=== PATIENT | female | born 1940 | race Caucasian/White ===

== ENCOUNTER → 2017-07-26 | Outpatient (CLI) | payer MEDICARE, BC ==
--- NOTE | 2017-07-29 07:31 | MM ---
Reason for exam: screening (asymptomatic). Last mammogram was performed 1 year and 4 months ago. History: Patient is postmenopausal. Physical Findings: A clinical breast exam by your physician is recommended on an annual basis and results should be correlated with mammographic findings. MG 3D Screening Mammo W/Cad Bilateral CC and MLO view(s) were taken. Prior study comparison: March 19, 2016, bilateral MG 3d screening mammo w/cad. February 16, 2015, bilateral MG screening mammo w CAD. The breast tissue is almost entirely fat. There is chronic nodularity in the right breast. Asymmetric breast tissue in the right breast. No significant changes when compared with prior studies. ASSESSMENT: Benign, BI-RAD 2 RECOMMENDATION: Routine screening mammogram of both breasts in 1 year.
== END | disposition home or self-care (01) ==
LOC: RADMAMWWP 13:18
PROVIDERS: ATTEND Internal Medicine
DX: Z12.31 Encounter for screening mammogram for malignant neoplasm of breast (principal)
CPT/HCPCS: 77063; G0202

== ENCOUNTER 2018-01-03 07:18 | Inpatient (IN) | payer MEDICARE, BC ==
[2018-01-03 07:57] LABS: Glucose,Whole Blood 124 mg/dL (75-99)
[2018-01-03] MEDS ORDERED: METOCLOPRAMIDE 5 MG/ML 2 ML VIAL IVP STA (08:00)
[2018-01-03] MEDS ORDERED: SODIUM CHLORIDE 0.9% 1,000 ML IV STA (08:00)
--- NOTE | 2018-01-03 08:05 | ED ---
General Adult HPI - General Chief complaint: Headache Stated complaint: headache Time Seen by Provider: 01/03/18 07:50 Source: patient, family, RN notes reviewed Mode of arrival: ambulatory Limitations: no limitations - History of Present Illness Initial comments: Patient is a pleasant 77-year-old female presenting to the emergency Department with headache. Patient occasionally gets headaches. Patient was once seen in the hospital for headache. Patient had a headache yesterday morning. When her son arrived to visit she seemed to have some slurred speech that quickly resolved after she woke up. There is also questionable left facial droop that also seemed to quickly resolved. Headache got better. Patient did take 2 aspirin last night. Headache has returned this morning. Son spoke with her on the phone again with questionable mild slurred speech again. That has resolved again. Patient complains only of mild headache at this time. Patient denies ever having any weakness or confusion. - Related Data Home Medications Medication Instructions Recorded Confirmed Aspirin 81 mg PO DAILY 10/28/14 01/03/18 Atenolol [Tenormin] 25 mg PO BID 10/28/14 01/03/18 Carbidopa/Levodopa 1 tab PO TID 10/28/14 01/03/18 [Carbidopa-Levodopa 25-100 Tab] Magnesium. 2 tab PO DAILY 10/28/14 01/03/18 Losartan Potassium 100 mg PO DAILY 01/03/18 01/03/18 Pravastatin Sodium [Pravachol] 20 mg PO Q48H 01/03/18 01/03/18 Allergies Allergy/AdvReac Type Severity Reaction Status Date / Time No Known Allergies Allergy Unverified 01/03/18 08:40 Review of Systems ROS Statement: Those systems with pertinent positive or pertinent negative responses have been documented in the HPI. ROS Other: All systems not noted in ROS Statement are negative. Constitutional: Denies: fever Eyes: Denies: eye pain ENT: Denies: ear pain Respiratory: Denies: cough Cardiovascular: Denies: chest pain Endocrine: Denies: fatigue Gastrointestinal: Denies: abdominal pain Genitourinary: Denies: dysuria Musculoskeletal: Denies: back pain Skin: Denies: rash Neurological: Reports: headache Past Medical History Past Medical History: Atrial Fibrillation, Hypertension Additional Past Medical History / Comment(s): parkinsons History of Any Multi-Drug Resistant Organisms: None Reported Past Surgical History: Cholecystectomy, Hysterectomy, Tubal Ligation Additional Past Surgical History / Comment(s): cataract surgery bilateral Past Anesthesia/Blood Transfusion Reactions: No Reported Reaction Past Psychological History: No Psychological Hx Reported Smoking Status: Never smoker Past Alcohol Use History: Rare Past Drug Use History: None Reported - Past Family History Mother Family Medical History: Cancer Additional Family Medical History / Comment(s): Lung cancer Father Additional Family Medical History / Comment(s): arthritis General Exam Limitations: no limitations General appearance: alert, in no apparent distress Head exam: Present: atraumatic Eye exam: Present: normal appearance, PERRL, EOMI. Absent: nystagmus ENT exam: Present: normal oropharynx Neck exam: Present: normal inspection Respiratory exam: Present: normal lung sounds bilaterally Cardiovascular Exam: Present: regular rate, normal rhythm GI/Abdominal exam: Present: soft. Absent: tenderness Extremities exam: Present: normal inspection Neurological exam: Present: alert, oriented X3, CN II-XII intact. Absent: motor sensory deficit Expanded Patient oriented to: Present: person, place, time Speech: Present: fluid speech Cranial nerves: EOM's Intact: Normal, Facial Sensation: Normal Sensory exam: Upper Extremity Light Touch: Normal, Lower Extremity Light Touch: Normal Motor strength exam: RUE: 5, LUE: 5, RLE: 5, LLE: 5 Eye Response: (4) open spontaneously Motor Response: (6) obeys commands Verbal Response: (5) oriented Psychiatric exam: Present: normal affect, normal mood Skin exam: Present: normal color Course Vital Signs 01/03/18 01/03/18 01/03/18 07:22 09:10 10:09 Temperature 97.3 F L Pulse Rate 77 69 54 L Respiratory 16 18 18 Rate Blood Pressure 172/78 152/72 145/65 O2 Sat by Pulse 100 98 98 Oximetry EKG Findings - EKG Comments: EKG Findings:: Normal sinus rhythm 70. NE 186. QRS 92. QT 412. QTC 444. Left axis. Normal QRS. No acute ST change. Medical Decision Making - Medical Decision Making Patient reevaluated and resting comfortably in bed. Patient symptom free at this time. Patient and family are updated on results and plan. Case was discussed with Dr. Gregg, who will admit his patient. Further evaluation will be done for possible TIA. - Lab Data Result diagrams: 01/03/18 08:00 01/03/18 08:00 Lab Results 01/03/18 01/03/18 01/03/18 Range/Units 07:53 08:00 08:00 WBC 9.6 (3.8-10.6) k/uL RBC 4.09 (3.80-5.40) m/uL Hgb 12.6 (11.4-16.0) gm/dL Hct 38.5 (34.0-46.0) % MCV 94.3 (80.0-100.0) fL MCH 30.8 (25.0-35.0) pg MCHC 32.7 (31.0-37.0) g/dL RDW 12.8 (11.5-15.5) % Plt Count 169 (150-450) k/uL Neutrophils % 85 % Lymphocytes % 10 % Monocytes % 4 % Eosinophils % 1 % Basophils % 0 % Neutrophils # 8.1 H (1.3-7.7) k/uL Lymphocytes # 1.0 (1.0-4.8) k/uL Monocytes # 0.4 (0-1.0) k/uL Eosinophils # 0.1 (0-0.7) k/uL Basophils # 0.0 (0-0.2) k/uL ESR 28 H (0-20) mm/hr PT (9.0-12.0) sec INR (<1.2) APTT (22.0-30.0) sec Sodium 144 (137-145) mmol/L Potassium 4.0 (3.5-5.1) mmol/L Chloride 106 (98-107) mmol/L Carbon Dioxide 23 (22-30) mmol/L Anion Gap 15 mmol/L BUN 17 (7-17) mg/dL Creatinine 0.77 (0.52-1.04) mg/dL Est GFR (MDRD) Af Amer >60 (>60 ml/min/1.73 sqM) Est GFR (MDRD) Non-Af >60 (>60 ml/min/1.73 sqM) Glucose 130 H (74-99) mg/dL POC Glucose (mg/dL) 124 H (75-99) mg/dL POC Glu Stack Clerk ID Negrito Penaloza Calcium 10.5 H (8.4-10.2) mg/dL Total Bilirubin 0.5 (0.2-1.3) mg/dL AST 17 (14-36) U/L ALT 8 L (9-52) U/L Alkaline Phosphatase 66 (38-126) U/L Total Protein 7.4 (6.3-8.2) g/dL Albumin 4.2 (3.5-5.0) g/dL 01/03/18 Range/Units 08:00 WBC (3.8-10.6) k/uL RBC (3.80-5.40) m/uL Hgb (11.4-16.0) gm/dL Hct (34.0-46.0) % MCV (80.0-100.0) fL MCH (25.0-35.0) pg MCHC (31.0-37.0) g/dL RDW (11.5-15.5) % Plt Count (150-450) k/uL Neutrophils % % Lymphocytes % % Monocytes % % Eosinophils % % Basophils % % Neutrophils # (1.3-7.7) k/uL Lymphocytes # (1.0-4.8) k/uL Monocytes # (0-1.0) k/uL Eosinophils # (0-0.7) k/uL Basophils # (0-0.2) k/uL ESR (0-20) mm/hr PT 9.7 (9.0-12.0) sec INR 1.0 (<1.2) APTT 22.8 (22.0-30.0) sec Sodium (137-145) mmol/L Potassium (3.5-5.1) mmol/L Chloride (98-107) mmol/L Carbon Dioxide (22-30) mmol/L Anion Gap mmol/L BUN (7-17) mg/dL Creatinine (0.52-1.04) mg/dL Est GFR (MDRD) Af Amer (>60 ml/min/1.73 sqM) Est GFR (MDRD) Non-Af (>60 ml/min/1.73 sqM) Glucose (74-99) mg/dL POC Glucose (mg/dL) (75-99) mg/dL POC Glu Stack Clerk ID Calcium (8.4-10.2) mg/dL Total Bilirubin (0.2-1.3) mg/dL AST (14-36) U/L ALT (9-52) U/L Alkaline Phosphatase (38-126) U/L Total Protein (6.3-8.2) g/dL Albumin (3.5-5.0) g/dL - Radiology Data Radiology results: report reviewed (Computed tomography scan of the brain shows stable exam, suspect chronic small vessel ischemia.), image reviewed (Chest x- ray shows left basilar atelectasis.) Disposition Clinical Impression: Transient cerebral ischemia Disposition: ADMITTED IP TO THIS HOSP Referrals: Jett Gregg MD [Primary Care Provider] - 1-2 days Decision Time: 10:15
[2018-01-03 08:25] LABS: Basophils % (A) 0 %; Eosinophils # (A) 0.1 k/uL (0-0.7); Eosinophils % (A) 1 %; HCT 38.5 % (34.0-46.0); HGB 12.6 gm/dL (11.4-16.0); Lymphocytes % (A) 10 %; MCH 30.8 pg (25.0-35.0); MCHC 32.7 g/dL (31.0-37.0); MCV 94.3 fL (80.0-100.0); Mean Platelet Volume 8.8; Monocytes # (A) 0.4 k/uL (0-1.0); Monocytes % (A) 4 %; Neutrophils # (A) 8.1 k/uL (1.3-7.7); Neutrophils % (A) 85 %; Platelet Count 169 k/uL (150-450); RBC 4.09 m/uL (3.80-5.40); RDW 12.8 % (11.5-15.5); WBC 9.6 k/uL (3.8-10.6)
--- NOTE | 2018-01-03 08:25 | XR ---
EXAMINATION TYPE: XR chest 2V DATE OF EXAM: 01/03/2018 COMPARISON: 10/28/2014 HISTORY: Altered mental status TECHNIQUE: Frontal and lateral views of the chest are obtained. FINDINGS: There is no focal air space opacity, pleural effusion, or pneumothorax seen. Minimal left basilar subsegmental atelectasis is seen at the cardiophrenic angle. The cardiac silhouette size is within normal limits. The osseous structures are intact. Cholecystectomy clips are located within t he right upper quadrant. IMPRESSION: Minimal left basilar subsegmental atelectasis with no focal consolidation to suggest pne umonia..
[2018-01-03 08:31] LABS: Partial Thromboplastin Time 22.8 sec (22.0-30.0); Prothrombin Time 9.7 sec (9.0-12.0)
[2018-01-03 08:33] LABS: ALT 8 U/L (9-52); AST 17 U/L (14-36); Albumin 4.2 g/dL (3.5-5.0); Alkaline Phosphatase 66 U/L (38-126); Anion Gap 15 mmol/L; Blood Urea Nitrogen 17 mg/dL (7-17); Calcium 10.5 mg/dL (8.4-10.2); Carbon Dioxide 23 mmol/L (22-30); Chloride 106 mmol/L (98-107); Glucose 130 mg/dL (74-99); Sodium 144 mmol/L (137-145); Total Bilirubin 0.5 mg/dL (0.2-1.3); Total Protein 7.4 g/dL (6.3-8.2)
--- NOTE | 2018-01-03 08:46 | CT ---
EXAMINATION TYPE: CT brain wo con DATE OF EXAM: 01/03/2018 COMPARISON: Previous dated 10/28/2014 HISTORY: HANKINS, slurred speech CT DLP: 963.6 mGycm Automated exposure control for dose reduction was used. Helical acquisition through the brain. FINDINGS: There is no hemorrhage or hydrocephalus. Cerebral vascular calcifications are present. Inferior left cerebellar hemisphere not entirely included on the axial images. White matter low-attenuation is agai n seen. IMPRESSION: STABLE EXAM, SUSPECT CHRONIC SMALL VESSEL ISCHEMIA. BRAIN MRI MAY BE OF BENEFIT.
[2018-01-03] MEDS ORDERED: MORPHINE SULFATE 4 MG/ML SYRINGE IVP STA (09:12)
[2018-01-03 09:32] LABS: Erythrocyte Sedimentation Rate 28 mm/hr (0-20)
[2018-01-03] MEDS ORDERED: ONDANSETRON 4 MG/2 ML VIAL IVP STA (10:06)
[2018-01-03] MEDS ORDERED: ASPIRIN 325 MG TAB PO STA (10:15)
--- NOTE | 2018-01-03 13:11 | US ---
EXAMINATION TYPE: US carotid duplex BILAT DATE OF EXAM: 01/03/2018 COMPARISON: NONE CLINICAL HISTORY: Stenosis. Patient states having severe headache. No hx of TIA or stroke. HTN. EXAM MEASUREMENTS: RIGHT: Peak Systolic Velocity (PSV) cm/sec ----- Right CCA: 87.5 ----- Right ICA: 91.1 ----- Right ECA: 77.9 ICA/CCA ratio: 1.0 RIGHT: End Diastole cm/sec ----- Right CCA: 12.8 ----- Right ICA: 15.3 ----- Right ECA: 0.0 LEFT: Peak Systolic Velocity (PSV) cm/sec ----- Left CCA: 101.7 ----- Left ICA: 100.4 ----- Left ECA: 77.6 ICA/CCA ratio: 1.0 LEFT: End Diastole cm/sec ----- Left CCA: 16.3 ----- Left ICA: 15.0 ----- Left ECA: 0.0 VERTEBRALS (direction of flow): Right Vertebral: Antegrade Left Vertebral: Antegrade Rhythm: Normal Bilateral wall thickening. No plaque, elevated velocities or significant stenosis. IMPRESSION: 1. Intimal thickening bilaterally with no significant hemodynamic stenosis.
[2018-01-03] MEDS: SODIUM CHLORIDE 0.9% 1,000 ML IV SCH ×2 (13:38→20:37)
--- NOTE | 2018-01-03 14:31 | P.CNNES ---
History of Present Illness Consult date: 01/03/18 Requesting physician: Jett Gregg Reason for Consult: Transient ischemic attack History of Present Illness: Patient is a pleasant 77-year-old female who is being evaluated by the neurology service on 01/03/2018 per the request of Dr. Gregg for transient ischemic attack. Patient states she developed a headache over the last day or day and a half. Patient reports headache became so severe she was staying in bed. Son informs me he goes to check on her at lunchtime. He went to check on her about 2 PM and had waken her from sleep. He noticed a mild left facial droop and mildly slurred speech. He attributed this to her just waking up. As the day went on there is another questionable episode of left facial droop with slurred speech. Again symptoms had resolved. Patient called son in the morning and asked to be brought to [facility]. Symptoms resolved by the time she reached the hospital. Patient does states she took 01/2025 milligrams aspirin last night. Patient denies headache at this time. No lateralizing weakness. Patient denies ever having weakness or confusion. Patient states she takes low-dose aspirin in the home setting. Patient does have history of Parkinson's disease and is on Sinemet 25/100 4 times a day. On admission, patient Was 97.3, pulse 77, respiratory rate 16, blood pressure 172/ 78, and O2 saturation was 100% on room air. CBC with differential was normal except for high neutrophil 8.1. ESR 28. Calcium elevated at 10.5. Computed tomography scan was done on admission which showed chronic small vessel ischemia. Carotid Doppler was done which showed no evidence of hemodynamically significant stenosis. Since admission, there is been no return of symptoms. At the time of my evaluation, patient sitting up in bed eating lunch. No difficulty swallowing. Son is at the bedside. Review of Systems REVIEW OF SYSTEMS: Otherwise unremarkable and noncontributory. Past Medical History Past Medical History: Atrial Fibrillation, Deep Vein Thrombosis (DVT), GI Bleed , Hypertension, Musculoskeletal Disorder, Neurologic Disorder, Thyroid Disorder Additional Past Medical History / Comment(s): Parkinsons, rectal bleed, hemorrhoids, anemia, bronchitis, sinus problems with recent sinus infection tx with antibiotics, low back pain, UTIs, diverticular disease, colon polyps-benign , R arm DVT. History of Any Multi-Drug Resistant Organisms: None Reported Past Surgical History: Cholecystectomy, Hysterectomy, Tubal Ligation Additional Past Surgical History / Comment(s): cataract surgery bilateral with lens implants, rectocele, cystocele, colonoscopies/benign polypectomies. Past Anesthesia/Blood Transfusion Reactions: No Reported Reaction Smoking Status: Never smoker - Past Family History Mother Family Medical History: Cancer Additional Family Medical History / Comment(s): Mother of lung cancer at the age of 83 yrs. Father Additional Family Medical History / Comment(s): arthritis Medications and Allergies Home Medications Medication Instructions Recorded Confirmed Type Aspirin 81 mg PO DAILY 10/28/14 01/03/18 History Atenolol [Tenormin] 25 mg PO BID 10/28/14 01/03/18 History Carbidopa/Levodopa 1 tab PO TID 10/28/14 01/03/18 History [Carbidopa-Levodopa 25-100 Tab] Magnesium. 2 tab PO DAILY 10/28/14 01/03/18 History Losartan Potassium 100 mg PO DAILY 01/03/18 01/03/18 History Pravastatin Sodium [Pravachol] 20 mg PO Q48H 01/03/18 01/03/18 History Allergies Allergy/AdvReac Type Severity Reaction Status Date / Time No Known Allergies Allergy Unverified 01/03/18 08:40 Physical Examination - Vital Signs Vital Signs: Vital Signs Temp Pulse Pulse Resp BP BP Pulse Ox 01/03/18 10:56 97.3 F L 01/03/18 10:50 53 L 18 150/64 99 01/03/18 10:09 54 L 18 145/65 98 01/03/18 09:10 69 18 152/72 98 01/03/18 07:22 97.3 F L 77 16 172/78 100 Intake and Output 01/02/18 01/03/18 01/03/18 22:59 06:59 14:59 Other: Weight 63.503 kg Patient Weight 01/04/18 06:59 Weight 63.503 kg PHYSICAL EXAM: GENERAL APPEARANCE: Patient is a well-developed, female who appears to be in no acute distress. HEENT: Normocephalic, atraumatic, no facial asymmetry is seen. Neck is supple with no masses felt. CARDIOVASCULAR: Regular rate and rhythm. ABDOMEN: Nontender, nondistended. EXTREMITIES: Show no edema or clubbing. NEUROLOGICAL EXAM: Patient is awake, alert, and oriented 3. Speech and language are normal. Strength is full in all 4 extremities. Sensory exam to light touch is normal in all 4 extremities. Slight left facial droop noted on cranial nerve testing. Patient states this is normal for her and son is at the bedside and also states this looks normal. No tremors or seizure-like activity is noted. Results - Laboratory Findings CBC and BMP: 01/03/18 08:00 01/03/18 08:00 Abnormal Lab Findings: Abnormal Labs 01/03/18 01/03/18 01/03/18 07:53 08:00 08:00 Neutrophils # 8.1 H ESR 28 H Glucose 130 H POC Glucose (mg/dL) 124 H Calcium 10.5 H ALT 8 L Assessment and Plan Plan: Impression: 1. TIA 2. Slurred speech, resolved 3. Left facial droop, resolved 4. History of Parkinson's 5. Hypertension Recommendation: It does appear patient had a transient ischemic attack with transient episode 2 of slurred speech and left facial droop. Symptoms have completely resolved. As you recall, CT was negative for any acute process. Carotid Doppler was negative for any hemodynamically significant stenosis. I will switch her aspirin to Plavix 75 mg by mouth daily. I will order an EEG, fasting lipid panel, and serum homocysteine level. Continue Sinemet for Parkinson's disease. Continue neurological checks. I will continue to follow with you. Further recommendations to follow. I performed an examination of the patient and discussed the management with the MANAGER ENV[employer]ONMENTAL HE[facility]. I have reviewed the MANAGER ENV[employer]ONMENT[facility] notes and agree with the findings and plan of care.
[2018-01-03 15:21] LABS: Cholesterol 172 mg/dL (<200); HDL Cholesterol 52 mg/dL (40-60); LDL Cholesterol,Calculated 94 mg/dL (0-99); Triglycerides 129 mg/dL (<150)
[2018-01-03] MEDS: CARBIDOPA-LEVODOPA 25-100 MG 1 EACH TAB PO SCH ×2 (16:43→20:33)
[2018-01-03] MEDS: ATENOLOL 25 MG TAB PO SCH (20:33)
[2018-01-04 02:08] VITALS: RESP 16
[2018-01-04] MEDS: SODIUM CHLORIDE 0.9% 1,000 ML IV SCH ×2 (05:52→15:26)
[2018-01-04] MEDS: ATENOLOL 25 MG TAB PO SCH ×2 (08:49→21:17)
[2018-01-04] MEDS: CLOPIDOGREL 75 MG TAB PO SCH (08:49)
[2018-01-04] MEDS: LOSARTAN 50 MG TAB PO SCH (08:49)
[2018-01-04] MEDS: CARBIDOPA-LEVODOPA 25-100 MG 1 EACH TAB PO SCH ×3 (08:49→21:17)
[2018-01-04] MEDS ORDERED: ASPIRIN 325 MG TAB PO SCH (09:00)
--- NOTE | 2018-01-04 09:23 | ECHOF ---
Referral Reason:Thrombus MEASUREMENTS -------- HEIGHT: 160.0 cm WEIGHT: 63.5 kg BP: IVSd: 1.0 cm (0.6 - 1.1) LVIDd: 4.9 cm (3.9 - 5.3) LVPWd: 1.0 cm (0.6 - 1.1) IVSs: 1.3 cm LVIDs: 3.7 cm LVPWs: 1.3 cm LA Diam: 3.3 cm (2.7 - 3.8) LAESV Index (A-L): 37.17 ml/m Ao Diam: 3.3 cm (2.0 - 3.7) AV Cusp: 2.0 cm (1.5 - 2.6) LA Diam: 2.6 cm (2.7 - 3.8) MV EXCURSION: 18.894 mm (> 18.000) MV EF SLOPE: 98 mm/s (70 - 150) EPSS: 0.2 cm MV E Tin: 0.69 m/s MV DecT: 226 ms MV A Tin: 0.81 m/s MV E/A Ratio: 0.86 RAP: 5.00 mmHg RVSP: 11.25 mmHg FINDINGS -------- Sinus rhythm. This was a technically good study. The left ventricular size is normal. There is borderline concentric left ventricular hypertrophy. Overall left ventricular systolic function is normal with, an EF between 55 - 60 %. The right ventricle is normal in size. LA is moderately dilated 34-39 ml/m2 The right atrial size is normal. The aortic valve is trileaflet, and appears structurally normal. No aortic stenosis or regurgitation. Mild mitral regurgitation is present. Mild tricuspid regurgitation present. There is no evidence of pulmonary hypertension. The right v entricular systolic pressure, as measured by Doppler, is 11.25mmHg. Trace/mild (physiologic) pulmonic regurgitation. The aortic root size is normal. There is no pericardial effusion. CONCLUSIONS -------- 1. The left ventricular size is normal. 2. There is borderline concentric left ventricular hypertrophy. 3. Overall left ventricular systolic function is normal with, an EF between 55 - 60 %. 4. LA is moderately dilated 34-39 ml/m2 5. The aortic valve is trileaflet, and appears structurally normal. No aortic stenosis or regurgitati on. 6. Mild mitral regurgitation is present. 7. Mild tricuspid regurgitation present. 8. There is no evidence of pulmonary hypertension. 9. The right ventricular systolic pressure, as measured by Doppler, is 11.25mmHg. 10. Trace/mild (physiologic) pulmonic regurgitation. 11. The aortic root size is normal. 12. There is no pericardial effusion. PUBLIC FINANCE SPECIALIST: Carol Patrick RDCS
[2018-01-04] MEDS: MAGNESIUM OXIDE 400 MG TAB PO SCH (11:04)
--- NOTE | 2018-01-04 13:08 | P.HPIM ---
History of Present Illness H&P Date: 01/04/18 Chief Complaint: Slurred speech and left sided facial drooping Katya Rebolledo is a 77-year-old female well known to my practice who presented to [facility] emergency room with a chief complaint of left facial drooping and an episode of slurred speech, patient stated that she started having a headache on the day prior to admission, she was seen by her son at lunchtime and he noticed mild left facial drooping and mild slurred speech, he thought that this was because she was waking up from sleep, however she had a second episode in the evening also of slurred speech and left sided facial drooping. in the evening the patient took 2 aspirin 325 milligrams and went to sleep she woke up in the morning and called her son and asked him to bring her to emergency room as she was not feeling well. Upon arrival to emergency room patient was symptom-free, there is minimal left sided facial drooping however patient states that this is chronic for her, and stated that she had that since she was diagnosed was Parkinson disease, she has known history of Parkinson disease and is maintained on Sinemet, she has tremor mostly in the left side. Past Medical History Past Medical History: Atrial Fibrillation, Deep Vein Thrombosis (DVT), GI Bleed , Hypertension, Musculoskeletal Disorder, Neurologic Disorder, Thyroid Disorder Additional Past Medical History / Comment(s): Parkinsons, rectal bleed, hemorrhoids, anemia, bronchitis, sinus problems with recent sinus infection tx with antibiotics, low back pain, UTIs, diverticular disease, colon polyps-benign , R arm DVT. History of Any Multi-Drug Resistant Organisms: None Reported Past Surgical History: Cholecystectomy, Hysterectomy, Tubal Ligation Additional Past Surgical History / Comment(s): cataract surgery bilateral with lens implants, rectocele, cystocele, colonoscopies/benign polypectomies. Past Anesthesia/Blood Transfusion Reactions: No Reported Reaction Smoking Status: Never smoker - Past Family History Mother Family Medical History: Cancer Additional Family Medical History / Comment(s): Mother of lung cancer at the age of 83 yrs. Father Additional Family Medical History / Comment(s): arthritis Medications and Allergies Home Medications Medication Instructions Recorded Confirmed Type Aspirin 81 mg PO DAILY 10/28/14 01/03/18 History Atenolol [Tenormin] 25 mg PO BID 10/28/14 01/03/18 History Carbidopa/Levodopa 1 tab PO TID 10/28/14 01/03/18 History [Carbidopa-Levodopa 25-100 Tab] Magnesium. 2 tab PO DAILY 10/28/14 01/03/18 History Losartan Potassium 100 mg PO DAILY 01/03/18 01/03/18 History Pravastatin Sodium [Pravachol] 20 mg PO Q48H 01/03/18 01/03/18 History Allergies Allergy/AdvReac Type Severity Reaction Status Date / Time No Known Allergies Allergy Unverified 01/03/18 08:40 Physical Exam Vitals: Vital Signs Temp Pulse Resp BP Pulse Ox 01/04/18 08:00 96.6 F L 66 16 156/68 99 01/04/18 04:00 98.8 F 66 16 151/87 97 01/04/18 00:00 98.2 F 58 L 16 129/65 97 01/03/18 20:00 97.2 F L 64 16 138/61 96 01/03/18 16:00 97.1 F L 61 18 149/80 99 01/03/18 15:42 63 18 Intake and Output 01/03/18 01/04/18 01/04/18 22:59 06:59 14:59 Intake Total 240 1050 Balance 240 1050 Intake: Intake, IV Titration 1050 Amount Sodium Chloride 0.9% 1, 1050 000 ml @ 100 mls/hr IV . Q10H [facility] Rx#:[id number] Oral 240 Other: Voiding Method Toilet # Voids 2 2 Weight 69.2 kg In general patient is alert and oriented 3 in no apparent distress HEENT head normocephalic and atraumatic Neck is supple no JVD no goiter no lymphadenopathy Chest is clear to auscultation no wheezing Cardiac exam reveals regular heart sounds no murmurs Abdomen is soft nontender no organomegaly was normal bowel sounds Extremity exam reveals no edema no cyanosis or clubbing Neurological examination: Cranial nerve II-12 there is minimal left sided facial drooping otherwise normal cranial nerve exam Motor exam is within normal limits without any evidence of weakness Sensory exam to touch is within normal limits Gait was normal Speech is normal Reflexes are 2+ symmetrical Results CBC & Chem 7: 01/03/18 08:00 01/03/18 08:00 Thrombosis Risk Factor Assmnt - Choose All That Apply Any of the Below Risk Factors Present?: Yes Other Risk Factors: Yes Each Risk Factor Represents 3 Points: Age 75 years or older Other congenital or acquired thrombophilia - If yes, enter type in comment: No Thrombosis Risk Factor Assessment Total Risk Factor Score: 3 Thrombosis Risk Factor Assessment Level: Moderate Risk Assessment and Plan Plan: #1 2 episodes of facial drooping and slurred speech possible transient ischemic attack #2 underlying history of Parkinson disease #3 underlying history of hypertension #4 underlying history of hyperlipidemia At this time patient is admitted to telemetry floor, neurology consultation requested and patient was switched from aspirin to Plavix Echocardiogram and carotid Doppler were ordered EEG was ordered by neurology results are still pending Will follow closely during this hospitalization
--- NOTE | 2018-01-04 17:40 | P.PN ---
Subjective Progress Note Date: 01/04/18 Principal diagnosis: Patient is a pleasant 77-year-old female who is being followed by the neurology service for TIA. Patient had symptoms of left facial droop and slurred speech. Patient denies any return of the symptoms. Patient has chronic mild left droop of the mouth due to Parkinson's disease. Speech and language are normal. Computed tomography scan of the brain showed chronic small vessel ischemia. Carotid Doppler was done and showed no evidence of hemodynamically significant stenosis. Patient is eating well and denies dysphagia. Patient denies headache. No lateralizing weakness is noted. The time of my evaluation, patient is resting comfortably in bed and appears to be in no acute distress. Objective - Vital Signs Vital signs: Vital Signs Temp 97.6 F 01/04/18 16:00 Pulse 62 01/04/18 16:00 Resp 16 01/04/18 16:00 BP 184/84 01/04/18 16:00 Pulse Ox 98 01/04/18 16:00 Intake & Output 01/03/18 01/04/18 01/04/18 18:59 06:59 18:59 Intake Total 240 1050 360 Balance 240 1050 360 Weight 63.503 kg 69.2 kg Intake: Intake, IV Titration 1050 Amount Sodium Chloride 0.9% 1, 1050 000 ml @ 100 mls/hr IV . Q10H LEANDRO Rx#:[id number] Oral 240 360 Other: Voiding Method Toilet # Voids 2 2 4 - Exam PHYSICAL EXAM: GENERAL APPEARANCE: Patient is a well-developed, female who appears to be in no acute distress. HEENT: Normocephalic, atraumatic, no facial asymmetry is seen. Neck is supple with no masses felt. CARDIOVASCULAR: Regular rate and rhythm. ABDOMEN: Nontender, nondistended. EXTREMITIES: Show no edema or clubbing. NEUROLOGICAL EXAM: Patient is awake, alert, and oriented 3. Speech and language are normal. Strength is full in all 4 extremities. Sensory exam to light touch is normal in all 4 extremities. Mild left mouth droop noted on cranial nerve testing. This droop is chronic for patient. No seizures or tremors noted. - Labs CBC & Chem 7: 01/03/18 08:00 01/03/18 08:00 Assessment and Plan Plan: Impression: 1. TIA 2. Slurred speech, resolved 3. Left facial droop, resolved 4. History of Parkinson's 5. Hypertension Recommendation: It does appear patient had a transient ischemic attack with transient episode 2 of slurred speech and left facial droop. Symptoms have completely resolved. As you recall, CT was negative for any acute process. Carotid Doppler was negative for any hemodynamically significant stenosis. I will switch her aspirin to Plavix 75 mg by mouth daily. EEG was ordered and not yet done. Her fasting lipid panel and serum homocysteine level were within normal limits. Continue Sinemet for Parkinson's disease. Continue neurological checks. Patient is stable from a neurological standpoint for discharge. EEG can be done as an outpatient. Patient can follow up in my office. I performed an examination of the patient and discussed the management with the 3RD MATE. I have reviewed the 3RD MATE notes and agree with the findings and plan of care.
[2018-01-04] MEDS: amLODIPine 2.5 MG TAB PO SCH (18:26)
[2018-01-04] MEDS ORDERED: PRAVASTATIN SODIUM 20 MG TAB PO SCH (21:00)
[2018-01-05] MEDS: SODIUM CHLORIDE 0.9% 1,000 ML IV SCH (02:26)
[2018-01-05] MEDS: CARBIDOPA-LEVODOPA 25-100 MG 1 EACH TAB PO SCH (09:02)
[2018-01-05] MEDS: CLOPIDOGREL 75 MG TAB PO SCH (09:02)
[2018-01-05] MEDS: amLODIPine 2.5 MG TAB PO SCH (09:02)
[2018-01-05] MEDS: ATENOLOL 25 MG TAB PO SCH (09:02)
[2018-01-05] MEDS: LOSARTAN 50 MG TAB PO SCH (09:02)
--- NOTE | 2018-01-05 11:29 | P.DS ---
Providers Date of admission: 01/03/18 10:16 Expected date of discharge: 01/05/18 Attending physician: Jett Gregg Consults: 01/03/18 10:16 Consult Physician Urgent Consulting Provider: Mildred Mtz Consult Reason/Comments: tia Do you want consulting provider notified?: Yes Primary care physician: Jett Gregg [facility] Course: Diagnosis on discharge: #1 2 episodes of facial drooping and slurred speech possible transient ischemic attack #2 underlying history of Parkinson disease #3 hypertension with hypertensive emergency during this admission #4 underlying history of hyperlipidemia Hospital course: Katya Rebolledo is a 77-year-old female well known to my practice who presented to [facility] emergency room with a chief complaint of left facial drooping and an episode of slurred speech, patient stated that she started having a headache on the day prior to admission, she was seen by her son at lunchtime and he noticed mild left facial drooping and mild slurred speech, he thought that this was because she was waking up from sleep, however she had a second episode in the evening also of slurred speech and left sided facial drooping. in the evening the patient took 2 aspirin 325 milligrams and went to sleep she woke up in the morning and called her son and asked him to bring her to emergency room as she was not feeling well. Upon arrival to emergency room patient was symptom-free, there is minimal left sided facial drooping however patient states that this is chronic for her, and stated that she had that since she was diagnosed was Parkinson disease, she has known history of Parkinson disease and is maintained on Sinemet, she has tremor mostly in the left side. During this admission blood pressure was significantly elevated patient had a reading as high as 194/100 most of the readings were in the systolic range of 150-160 patient was maintained at home on losartan 100 mg daily and atenolol 25 mg twice daily, initially Norvasc 2.5 mg was added blood pressure was staying elevated dose was increased to 5 mg daily patient was discharged home on Norvasc 5 mg daily she was told to check blood pressure twice daily and come to the office on Saturday for further evaluation. During this admission patient was started on Plavix 75 mg once daily by neurology she will continue on the same she was given a prescription for Plavix. I'll up in our office on January 10 at 11 AM Plan - Discharge Summary Discharge Rx Participant: No New Discharge Prescriptions: New amLODIPine [Norvasc] 5 mg PO DAILY tab Clopidogrel [Plavix] 75 mg PO DAILY tab Continue Carbidopa/Levodopa [Carbidopa-Levodopa 25-100 Tab] 1 tab PO TID Atenolol [Tenormin] 25 mg PO BID Aspirin 81 mg PO DAILY Magnesium. 2 tab PO DAILY Pravastatin Sodium [Pravachol] 20 mg PO Q48H Losartan Potassium 100 mg PO DAILY Discharge Medication List Aspirin 81 mg PO DAILY 10/28/14 [History] Atenolol [Tenormin] 25 mg PO BID 10/28/14 [History] Carbidopa/Levodopa [Carbidopa-Levodopa 25-100 Tab] 1 tab PO TID 10/28/14 [ History] Magnesium. 2 tab PO DAILY 10/28/14 [History] Losartan Potassium 100 mg PO DAILY 01/03/18 [History] Pravastatin Sodium [Pravachol] 20 mg PO Q48H 01/03/18 [History] Clopidogrel [Plavix] 75 mg PO DAILY tab 01/05/18 [Rx] amLODIPine [Norvasc] 5 mg PO DAILY tab 01/05/18 [Rx] Follow up Appointment(s)/Referral(s): Mildred Mtz MD [STAFF PHYSICIAN] - 2 Weeks Jett Gregg MD [Primary Care Provider] - 1-2 days
[2018-01-05] MEDS ORDERED: amLODIPine 2.5 MG TAB PO ONE (11:30)
[2018-01-05] MEDS: MAGNESIUM OXIDE 400 MG TAB PO SCH (12:55)
[2018-01-05 13:07] VITALS: BP 167/78; PULSE 61; TEMP 97
[2018-01-06] MEDS ORDERED: amLODIPine 5 MG TAB PO SCH (09:00)
== END 2018-01-05 13:42 | disposition home or self-care (01) | DRG 69 ==
LOC: EC 07:18 → 6SEL 10:16
PROVIDERS: ADMIT Internal Medicine; ATTEND Internal Medicine
DX: G45.9 Transient cerebral ischemic attack, unspecified (principal); G20 Parkinson's disease; I48.91 Unspecified atrial fibrillation; I16.1 Hypertensive emergency; E78.5 Hyperlipidemia, unspecified; I10 Essential (primary) hypertension; R47.81 Slurred speech; R29.810 Facial weakness; Z79.82 Long term (current) use of aspirin; Z79.899 Other long term (current) drug therapy; Z80.1 Family history of malignant neoplasm of trachea, bronchus and lung; Z90.710 Acquired absence of both cervix and uterus; Z90.49 Acquired absence of other specified parts of digestive tract; Z98.41 Cataract extraction status, right eye; Z98.42 Cataract extraction status, left eye; Z96.1 Presence of intraocular lens; Z86.010 Personal history of colon polyps; Z86.718 Personal history of other venous thrombosis and embolism; Z87.19 Personal history of other diseases of the digestive system; Z87.440 Personal history of urinary (tract) infections; Z98.51 Tubal ligation status
CPT/HCPCS: 36415; 70450; 71046; 80053; 80061; 83090; 85025; 85610; 85652; 85730; 93005; 93306; 93880; 96361; 96374; 96375; 99285

== ENCOUNTER 2018-04-20 02:39 | Emergency (ER) | payer MEDICARE, BC ==
[2018-04-20 02:49] VITALS: TEMP 97.6
[2018-04-20 03:00] LABS: Glucose,Whole Blood 137 mg/dL (75-99)
[2018-04-20] MEDS ORDERED: SODIUM CHLORIDE 0.9% 500 ML IV STA (03:02)
[2018-04-20] MEDS ORDERED: METOCLOPRAMIDE 5 MG/ML 2 ML VIAL IVP STA (03:02)
[2018-04-20] MEDS ORDERED: ACETAMINOPHEN IV (For NPO) 1,000 MG in EMPTY BAG 1 BAG IVPB STA (03:03)
--- NOTE | 2018-04-20 03:06 | ED ---
General Adult HPI - General Chief complaint: Headache Stated complaint: lopez Time Seen by Provider: 04/20/18 02:58 Source: patient, RN notes reviewed Mode of arrival: ambulatory Limitations: no limitations - History of Present Illness Initial comments: Patient is a pleasant 78-year-old female presenting to the emergency Department with headache. Onset was around 2:00 or so in the afternoon. Headache was gradual onset and has gradually progressively worsened. Headache has somewhat been waxing and waning. Discomfort is moderate at this time. Patient has associated nausea. No vomiting. No photophobia or visual change. No confusion. No weakness. Patient did have a headache similar to this several months ago however does not chronically get headaches. patient did not try taking any medication at home. - Related Data Home Medications Medication Instructions Recorded Confirmed Atenolol [Tenormin] 25 mg PO BID 10/28/14 04/20/18 Carbidopa/Levodopa 1 tab PO TID 10/28/14 04/20/18 [Carbidopa-Levodopa 25-100 Tab] Magnesium. 2 tab PO DAILY 10/28/14 04/20/18 Losartan Potassium 100 mg PO DAILY 01/03/18 04/20/18 Pravastatin Sodium [Pravachol] 20 mg PO Q48H 01/03/18 04/20/18 Previous Rx's Medication Instructions Recorded Clopidogrel [Plavix] 75 mg PO DAILY tab 01/05/18 amLODIPine [Norvasc] 5 mg PO DAILY tab 01/05/18 Allergies Allergy/AdvReac Type Severity Reaction Status Date / Time No Known Allergies Allergy Unverified 04/20/18 02:49 Review of Systems ROS Statement: Those systems with pertinent positive or pertinent negative responses have been documented in the HPI. ROS Other: All systems not noted in ROS Statement are negative. Constitutional: Denies: fever Eyes: Denies: eye pain ENT: Denies: ear pain Respiratory: Denies: cough Cardiovascular: Denies: chest pain Endocrine: Denies: fatigue Gastrointestinal: Reports: nausea. Denies: abdominal pain, vomiting Genitourinary: Denies: dysuria Musculoskeletal: Denies: back pain Skin: Denies: rash Neurological: Reports: headache. Denies: weakness, numbness, paresthesias, confusion Past Medical History Past Medical History: Atrial Fibrillation, Deep Vein Thrombosis (DVT), GI Bleed , Hypertension, Musculoskeletal Disorder, Neurologic Disorder, Thyroid Disorder Additional Past Medical History / Comment(s): Parkinsons, rectal bleed, hemorrhoids, anemia, bronchitis, sinus problems with recent sinus infection tx with antibiotics, low back pain, UTIs, diverticular disease, colon polyps-benign , R arm DVT. History of Any Multi-Drug Resistant Organisms: None Reported Past Surgical History: Cholecystectomy, Hysterectomy, Tubal Ligation Additional Past Surgical History / Comment(s): cataract surgery bilateral with lens implants, rectocele, cystocele, colonoscopies/benign polypectomies. Past Anesthesia/Blood Transfusion Reactions: No Reported Reaction Past Psychological History: No Psychological Hx Reported Smoking Status: Never smoker Past Alcohol Use History: None Reported Past Drug Use History: None Reported - Past Family History Mother Family Medical History: Cancer Additional Family Medical History / Comment(s): Mother of lung cancer at the age of 83 yrs. Father Additional Family Medical History / Comment(s): arthritis General Exam Limitations: no limitations General appearance: alert, in no apparent distress Head exam: Present: atraumatic Eye exam: Present: normal appearance, PERRL, EOMI ENT exam: Present: normal oropharynx Neck exam: Present: normal inspection Respiratory exam: Present: normal lung sounds bilaterally Cardiovascular Exam: Present: regular rate, normal rhythm GI/Abdominal exam: Present: soft. Absent: tenderness Extremities exam: Present: normal inspection Neurological exam: Present: alert, CN II-XII intact. Absent: motor sensory deficit Expanded Neurological exam: Present: protecting the airway Speech: Present: fluid speech Cranial nerves: EOM's Intact: Normal, Facial Sensation: Normal Sensory exam: Upper Extremity Light Touch: Normal, Lower Extremity Light Touch: Normal Motor strength exam: RUE: 5, LUE: 5, RLE: 5, LLE: 5 Eye Response: (4) open spontaneously Motor Response: (6) obeys commands Verbal Response: (5) oriented Psychiatric exam: Present: normal affect, normal mood Skin exam: Present: normal color Course Vital Signs 04/20/18 02:43 Temperature 97.6 F Pulse Rate 68 Respiratory 20 Rate Blood Pressure 162/77 O2 Sat by Pulse 99 Oximetry EKG Findings - EKG Comments: EKG Findings:: Normal sinus rhythm 62. KS 174. QRS 94. QT 418. QTC 424. Left axis. Normal QRS. No acute ST change. Medical Decision Making - Medical Decision Making Patient reevaluated and resting comfortably in bed. Discomfort has further improved and is mild at this time. Patient does not feel she needs further medication at this point. Patient is updated on results and need for follow-up. - Lab Data Result diagrams: 04/20/18 03:09 04/20/18 03:09 Lab Results 04/20/18 04/20/18 04/20/18 Range/Units 02:59 03:09 03:09 WBC 8.0 (3.8-10.6) k/uL RBC 4.00 (3.80-5.40) m/uL Hgb 12.8 (11.4-16.0) gm/dL Hct 37.1 (34.0-46.0) % MCV 93.0 (80.0-100.0) fL MCH 32.0 (25.0-35.0) pg MCHC 34.4 (31.0-37.0) g/dL RDW 12.9 (11.5-15.5) % Plt Count 137 L (150-450) k/uL Neutrophils % 82 % Lymphocytes % 12 % Monocytes % 4 % Eosinophils % 1 % Basophils % 0 % Neutrophils # 6.6 (1.3-7.7) k/uL Lymphocytes # 0.9 L (1.0-4.8) k/uL Monocytes # 0.3 (0-1.0) k/uL Eosinophils # 0.0 (0-0.7) k/uL Basophils # 0.0 (0-0.2) k/uL ESR 16 (0-20) mm/hr Sodium 140 (137-145) mmol/L Potassium 4.3 (3.5-5.1) mmol/L Chloride 105 (98-107) mmol/L Carbon Dioxide 24 (22-30) mmol/L Anion Gap 11 mmol/L BUN 21 H (7-17) mg/dL Creatinine 0.80 (0.52-1.04) mg/dL Est GFR (CKD-EPI)AfAm 82 (>60 ml/min/1.73 sqM) Est GFR (CKD-EPI)NonAf 72 (>60 ml/min/1.73 sqM) Glucose 130 H (74-99) mg/dL POC Glucose (mg/dL) 137 H (75-99) mg/dL POC Glu Liquid Floor And Wall Applier ID Diana Winters Calcium 10.4 H (8.4-10.2) mg/dL Total Bilirubin 0.3 (0.2-1.3) mg/dL AST 17 (14-36) U/L ALT 16 (9-52) U/L Alkaline Phosphatase 56 (38-126) U/L Total Protein 7.0 (6.3-8.2) g/dL Albumin 4.2 (3.5-5.0) g/dL - Radiology Data Radiology results: report reviewed (Computed tomography scan of the brain shows no acute process) Disposition Clinical Impression: Headache Disposition: HOME SELF-CARE Condition: Stable Instructions: Acute Headache (ED) Additional Instructions: Please follow-up with primary care physician in the next couple of days for recheck. Return for change in mental status, confusion, weakness, increased pain, worsening symptoms or other concerns. Is patient prescribed a controlled substance at d/c from ED?: No Referrals: Jett Gregg MD [Primary Care Provider] - 1-2 days Time of Disposition: 04:55
[2018-04-20 03:26] LABS: Basophils % (A) 0 %; Eosinophils % (A) 1 %; HCT 37.1 % (34.0-46.0); HGB 12.8 gm/dL (11.4-16.0); Lymphocytes # (A) 0.9 k/uL (1.0-4.8); Lymphocytes % (A) 12 %; MCHC 34.4 g/dL (31.0-37.0); Mean Platelet Volume 8.3; Monocytes # (A) 0.3 k/uL (0-1.0); Monocytes % (A) 4 %; Neutrophils # (A) 6.6 k/uL (1.3-7.7); Neutrophils % (A) 82 %; Platelet Count 137 k/uL (150-450); RDW 12.9 % (11.5-15.5)
[2018-04-20 03:33] LABS: Albumin 4.2 g/dL (3.5-5.0); Calcium 10.4 mg/dL (8.4-10.2); Potassium 4.3 mmol/L (3.5-5.1); Total Bilirubin 0.3 mg/dL (0.2-1.3)
--- NOTE | 2018-04-20 03:55 | CT ---
EXAM: CT Head Without Intravenous Contrast CLINICAL HISTORY: Reason: lopez TECHNIQUE: Axial computed tomography images of the head/brain without intravenous contrast. CTDI is 60.3 mGy and DLP is 1087 mGy-cm. This CT exam was performed using one or more of the following dose reduction techniques: automated exposure control, adjustment of the mA and/or kV according to patient size, and/or use of iterative reconstruction technique. COMPARISON: January 03, 2018 FINDINGS: Brain: Unremarkable. No hemorrhage. No significant white matter disease. No edema. Ventricles: Unremarkable. No ventriculomegaly. Bones/joints: Unremarkable. No acute fracture. Soft tissues: Unremarkable. Sinuses: Unremarkable as visualized. No acute sinusitis. Mastoid air cells: Unremarkable as visualized. No mastoid effusion. IMPRESSION: Unremarkable CT brain. No significant interval change compared to the prior study
[2018-04-20 04:18] LABS: Erythrocyte Sedimentation Rate 16 mm/hr (0-20)
[2018-04-20 05:07] VITALS: BP 134/62; PULSE 62; RESP 16
== END 2018-04-20 05:07 | disposition home or self-care (01) ==
LOC: EC 02:39
DX: R51 Headache (principal); R11.0 Nausea; I10 Essential (primary) hypertension; G20 Parkinson's disease; Z79.899 Other long term (current) drug therapy
CPT/HCPCS: 36415; 93005; 80053; 85652; 85025; 70450; 99284; 96374; 96375; 96361; J2765; J0131

== ENCOUNTER → 2018-09-02 | Outpatient (CLI) | payer MEDICARE, BC ==
--- NOTE | 2018-09-02 12:49 | BD ---
EXAMINATION TYPE: Axial Bone Density DATE OF EXAM: 09/02/2018 COMPARISON: NONE CLINICAL HISTORY: Postmenopausal female. Osteoporosis screening. Height: 5 FT 2 1/2 IN Weight: 149 FRAX RISK QUESTIONS: RISK FACTORS HISTORY OF: Active: YES Postmenopausal woman: TOTAL HYST AGE 57 Take estrogen and/or progesterone medications: 1-2 MONTHS AFTER HYST MEDICATIONS: Additional Medications: PLAVIX, NORVASC, ATENOLOL, LOSARTIN, POTASSIUM, PRAVASTATIN, MAGNESIUM VIT D , SINEMET Additional History: EXAM MEASUREMENTS: Bone mineral densitometry was performed using the [employer] System. Bone mineral density as measured about the Lumbar spine is: ----- L1-L4(G/cm2): 1.293 T Score Values are as follows: ----- L2: 0.3 ----- L3: 0.3 ----- L4: 2.9 ----- L1-L4: 0.9 Bone mineral density has: INCREASED 4.0 % since study of: 2013 Bone mineral density about the R hip (g/cm2): 0.836 Bone mineral density about the L hip (g/cm2): 0.848 T Score values are as follows: -----R Neck: -1.5 -----L Neck: -1.4 -----R Total: -0.5 -----L Total: -0.8 Bone mineral density has: DECREASED -5.0 % since study of: 2013 IMPRESSION: Osteopenia (T Score between -2.5 and -1). There is slightly increased risk of fracture and the patient may be considered for treatment. Re-Screen 2-5 years. NOTE: T-SCORE=SD OF THE YOUNG ADULT MEAN.
--- NOTE | 2018-09-02 12:52 | XR ---
Right hip HISTORY: Chronic low back pain radiating into right hip, right hip pain 2 views of the right hip There is minimal marginal spurring. Joint space, alignment, bone mineralization are normal. Soft tiss ues are unremarkable IMPRESSION: Some mild osteoarthritic changes suspected.
--- NOTE | 2018-09-02 12:55 | XR ---
Lumbosacral spine HISTORY: Low back pain 5 views of the lumbosacral spine There is no evident spondylolysis or spondylolisthesis. Lumbar vertebral bodies show preserved height . Bone mineralization is mildly reduced. There is multilevel spondylosis. Loss of disc height is pres ent at the intervertebral levels especially L5-S1, L4-5 and L3-4 there is associated vacuum phenomeno n. Sclerosis present in the posterior elements. Vascular calcifications present in the aortoiliac dis tribution. Surgical clips are present in the right upper quadrant. Question superimposed increased density in the lateral exam at the level of T11 posteriorly is questi oned. IMPRESSION: Degenerative disc disease and facet arthropathy. Postop changes. Questionable abnormal in creased density in the lateral exam, consider dedicated thoracic exam or chest x-ray versus chest CT.
--- NOTE | 2018-09-03 11:20 | MM ---
Reason for exam: screening (asymptomatic). Last mammogram was performed 1 year and 1 month ago. History: Patient is postmenopausal. Physical Findings: A clinical breast exam by your physician is recommended on an annual basis and results should be correlated with mammographic findings. MG 3D Screening Mammo W/Cad Bilateral CC and MLO view(s) were taken. Prior study comparison: July 26, 2017, bilateral MG 3d screening mammo w/cad. March 19, 2016, bilateral MG 3d screening mammo w/cad. There are scattered fibroglandular densities. There is chronic nodularity in the right breast. No significant changes when compared with prior studies. ASSESSMENT: Negative, BI-RAD 1 RECOMMENDATION: Routine screening mammogram of both breasts in 1 year.
== END ==
LOC: RADMAMWWP 07:47
PROVIDERS: ATTEND Internal Medicine
DX: Z12.31 Encounter for screening mammogram for malignant neoplasm of breast (principal); M85.80 Other specified disorders of bone density and structure, unspecified site; M16.11 Unilateral primary osteoarthritis, right hip; M51.36 Other intervertebral disc degeneration, lumbar region; M46.96 Unspecified inflammatory spondylopathy, lumbar region; Z98.890 Other specified postprocedural states
CPT/HCPCS: 72110; 73502; 77063; 77067; 77080

== ENCOUNTER 2018-09-29 05:28 | Observation (INO) | payer MEDICARE, BC ==
[2018-09-29] MEDS ORDERED: HYDROmorphone 1 MG/ML 1 ML SYRINGE IVP STA (07:22)
[2018-09-29] MEDS ORDERED: KETOROLAC 60 MG/2 ML VIAL IVP STA (07:22)
[2018-09-29] MEDS ORDERED: SODIUM CHLORIDE 0.9% 500 ML 500 ML IV ONE (07:24)
[2018-09-29] MEDS ORDERED: ONDANSETRON 4 MG/2 ML VIAL IVP STA (07:25)
--- NOTE | 2018-09-29 07:27 | ED ---
General Adult HPI - General Chief complaint: Headache Stated complaint: Headache, Nausea Time Seen by Provider: 09/29/18 07:00 Source: patient, RN notes reviewed Mode of arrival: ambulatory Limitations: no limitations - History of Present Illness Initial comments: This is a 78-year-old female who presents to the emergency department complaining of a headache. Patient has had these headaches multiple times and been seen in the emergency department multiple times. Patient is received 3 CT scans of the brain for these headaches and she does have a neurologist already. Patient comes in today stating the headache started yesterday at 2 PM and continued throughout the night. Patient states she's also nauseated. Patient denies being lightheaded or dizzy. Patient denies any visual disturbance or speech disturbance. Patient denies any numbness or weakness per patient denies any worsening ability to ambulate. Patient denies any recent fever chills or cough. Patient denies chest pain palpitations difficulty breathing or shortness of breath per patient denies abdominal pain patient denies nausea vomiting diarrhea. - Related Data Home Medications Medication Instructions Recorded Confirmed Atenolol [Tenormin] 25 mg PO BID 10/28/14 09/29/18 Carbidopa/Levodopa 1 tab PO TID 10/28/14 09/29/18 [Carbidopa-Levodopa 25-100 Tab] Magnesium. 2 tab PO DAILY 10/28/14 09/29/18 Losartan Potassium 100 mg PO DAILY 01/03/18 09/29/18 Pravastatin Sodium [Pravachol] 20 mg PO Q48H 01/03/18 09/29/18 Cholecalciferol [Vitamin D3] 1,000 unit PO DAILY 09/29/18 09/29/18 amLODIPine [Norvasc] 5 mg PO HS 09/29/18 09/29/18 Previous Rx's Medication Instructions Recorded Clopidogrel [Plavix] 75 mg PO DAILY tab 01/05/18 Allergies Allergy/AdvReac Type Severity Reaction Status Date / Time No Known Allergies Allergy Verified 09/29/18 08:56 Review of Systems ROS Statement: Those systems with pertinent positive or pertinent negative responses have been documented in the HPI. ROS Other: All systems not noted in ROS Statement are negative. Past Medical History Past Medical History: Atrial Fibrillation, Deep Vein Thrombosis (DVT), GI Bleed , Hypertension, Musculoskeletal Disorder, Neurologic Disorder, Thyroid Disorder Additional Past Medical History / Comment(s): Parkinsons, rectal bleed, hemorrhoids, anemia, bronchitis, sinus problems with recent sinus infection tx with antibiotics, low back pain, UTIs, diverticular disease, colon polyps-benign , R arm DVT. History of Any Multi-Drug Resistant Organisms: None Reported Past Surgical History: Cholecystectomy, Hysterectomy, Tubal Ligation Additional Past Surgical History / Comment(s): cataract surgery bilateral with lens implants, rectocele, cystocele, colonoscopies/benign polypectomies. Past Anesthesia/Blood Transfusion Reactions: No Reported Reaction Past Psychological History: No Psychological Hx Reported Smoking Status: Never smoker Past Alcohol Use History: None Reported Past Drug Use History: None Reported - Past Family History Mother Family Medical History: Cancer Additional Family Medical History / Comment(s): Mother of lung cancer at the age of 83 yrs. Father Additional Family Medical History / Comment(s): arthritis General Exam - General Exam Comments Initial Comments: GENERAL: Patient is well-developed and well-nourished. Patient is nontoxic and well- hydrated and is in mild distress. ENT: Neck is soft and supple. No significant lymphadenopathy is noted. Oropharynx is clear. Moist mucous membranes. Neck has full range of motion without eliciting any pain. EYES: The sclera were anicteric and conjunctiva were pink and moist. Extraocular movements were intact and pupils were equal round and reactive to light. Eyelids were unremarkable. PULMONARY: Unlabored respirations. Good breath sounds bilaterally. No audible rales rhonchi or wheezing was noted. CARDIOVASCULAR: There is a regular rate and rhythm without any murmurs gallops or rubs. ABDOMEN: Soft and nontender with normal bowel sounds. No palpable organomegaly was noted. There is no palpable pulsatile mass. SKIN: Skin is clear with no lesions or rashes and otherwise unremarkable. NEUROLOGIC: Patient is alert and oriented x3. Cranial nerves II through XII are grossly intact. Motor and sensory are also intact. Normal speech, volume and content. Symmetrical smile. MUSCULOSKELETAL: Normal extremities with adequate strength and full range of motion. No lower extremity swelling or edema. No calf tenderness. LYMPHATICS: No significant lymphadenopathy is noted PSYCHIATRIC: Normal psychiatric evaluation. Limitations: no limitations Course Vital Signs 09/29/18 09/29/18 06:03 10:15 Temperature 98.1 F Pulse Rate 74 70 Respiratory 20 18 Rate Blood Pressure 156/72 127/60 O2 Sat by Pulse 97 97 Oximetry Medical Decision Making - Medical Decision Making Patient received Toradol and half of Dilaudid. I went back in to reassess the patient for her headache and she states the headache was much improved but she was now experiencing some chest heaviness. EKG shows normal sinus rhythm at 74 bpm [place] interval 188 QRS 70 QT interval 34 QTC is 426. Patient's EKG shows no ST segment elevation or depression or T wave abnormalities are noted. Chest x-ray shows no acute abnormality. Patient's chest pain has improved. I spoke with Dr. Gregg he agreed to admit the patient admitted the patient wrote admitting orders. - Lab Data Result diagrams: 09/29/18 07:40 09/29/18 07:40 Lab Results 09/29/18 09/29/18 09/29/18 Range/Units 07:40 07:40 07:40 WBC 8.3 (3.8-10.6) k/uL RBC 3.90 (3.80-5.40) m/uL Hgb 12.2 (11.4-16.0) gm/dL Hct 36.6 (34.0-46.0) % MCV 93.7 D (80.0-100.0) fL MCH 31.1 (25.0-35.0) pg MCHC 33.2 (31.0-37.0) g/dL RDW 12.9 (11.5-15.5) % Plt Count 151 (150-450) k/uL Neutrophils % 82 % Lymphocytes % 11 % Monocytes % 5 % Eosinophils % 0 % Basophils % 0 % Neutrophils # 6.8 (1.3-7.7) k/uL Lymphocytes # 0.9 L (1.0-4.8) k/uL Monocytes # 0.4 (0-1.0) k/uL Eosinophils # 0.0 (0-0.7) k/uL Basophils # 0.0 (0-0.2) k/uL Sodium 139 (137-145) mmol/L Potassium 4.4 (3.5-5.1) mmol/L Chloride 106 (98-107) mmol/L Carbon Dioxide 25 (22-30) mmol/L Anion Gap 8 mmol/L BUN 22 H (7-17) mg/dL Creatinine 0.79 (0.52-1.04) mg/dL Est GFR (CKD-EPI)AfAm 84 (>60 ml/min/1.73 sqM) Est GFR (CKD-EPI)NonAf 73 (>60 ml/min/1.73 sqM) Glucose 116 H (74-99) mg/dL Calcium 10.4 H (8.4-10.2) mg/dL Total Bilirubin 0.5 (0.2-1.3) mg/dL AST 19 (14-36) U/L ALT 13 (9-52) U/L Alkaline Phosphatase 51 (38-126) U/L Total Creatine Kinase (30-135) U/L CK-MB (CK-2) (0.0-2.4) ng/mL CK-MB (CK-2) Rel Index Troponin I (0.000-0.034) ng/mL Total Protein 7.0 (6.3-8.2) g/dL Albumin 3.9 (3.5-5.0) g/dL Urine Color Yellow Urine Appearance Clear (Clear) Urine pH 5.5 (5.0-8.0) Ur Specific [place] 1.025 (1.001-1.035) Urine Protein Trace H (Negative) Urine Glucose (UA) Negative (Negative) Urine Ketones Negative (Negative) Urine Blood Negative (Negative) Urine Nitrite Negative (Negative) Urine Bilirubin Negative (Negative) Urine Urobilinogen <2.0 (<2.0) mg/dL Ur Leukocyte Esterase Negative (Negative) 09/29/18 Range/Units 07:40 WBC (3.8-10.6) k/uL RBC (3.80-5.40) m/uL Hgb (11.4-16.0) gm/dL Hct (34.0-46.0) % MCV (80.0-100.0) fL MCH (25.0-35.0) pg MCHC (31.0-37.0) g/dL RDW (11.5-15.5) % Plt Count (150-450) k/uL Neutrophils % % Lymphocytes % % Monocytes % % Eosinophils % % Basophils % % Neutrophils # (1.3-7.7) k/uL Lymphocytes # (1.0-4.8) k/uL Monocytes # (0-1.0) k/uL Eosinophils # (0-0.7) k/uL Basophils # (0-0.2) k/uL Sodium (137-145) mmol/L Potassium (3.5-5.1) mmol/L Chloride (98-107) mmol/L Carbon Dioxide (22-30) mmol/L Anion Gap mmol/L BUN (7-17) mg/dL Creatinine (0.52-1.04) mg/dL Est GFR (CKD-EPI)AfAm (>60 ml/min/1.73 sqM) Est GFR (CKD-EPI)NonAf (>60 ml/min/1.73 sqM) Glucose (74-99) mg/dL Calcium (8.4-10.2) mg/dL Total Bilirubin (0.2-1.3) mg/dL AST (14-36) U/L ALT (9-52) U/L Alkaline Phosphatase (38-126) U/L Total Creatine Kinase 48 (30-135) U/L CK-MB (CK-2) 0.2 (0.0-2.4) ng/mL CK-MB (CK-2) Rel Index 0.4 Troponin I <0.012 (0.000-0.034) ng/mL Total Protein (6.3-8.2) g/dL Albumin (3.5-5.0) g/dL Urine Color Urine Appearance (Clear) Urine pH (5.0-8.0) Ur Specific [place] (1.001-1.035) Urine Protein (Negative) Urine Glucose (UA) (Negative) Urine Ketones (Negative) Urine Blood (Negative) Urine Nitrite (Negative) Urine Bilirubin (Negative) Urine Urobilinogen (<2.0) mg/dL Ur Leukocyte Esterase (Negative) Disposition Clinical Impression: Headache, Chest pain Disposition: ADMITTED IP TO THIS HOSP Referrals: Jett Gregg MD [Primary Care Provider] - 1-2 days Time of Disposition: 10:39
[2018-09-29 08:28] LABS: Basophils % (A) 0 %; Eosinophils % (A) 0 %; HCT 36.6 % (34.0-46.0); HGB 12.2 gm/dL (11.4-16.0); Lymphocytes # (A) 0.9 k/uL (1.0-4.8); Lymphocytes % (A) 11 %; MCH 31.1 pg (25.0-35.0); MCHC 33.2 g/dL (31.0-37.0); Mean Platelet Volume 8.4; Monocytes # (A) 0.4 k/uL (0-1.0); Monocytes % (A) 5 %; Neutrophils # (A) 6.8 k/uL (1.3-7.7); Neutrophils % (A) 82 %; Platelet Count 151 k/uL (150-450); RDW 12.9 % (11.5-15.5); WBC 8.3 k/uL (3.8-10.6)
[2018-09-29 08:30] LABS: Albumin 3.9 g/dL (3.5-5.0); Appearance,Urine Clear (Clear); Bilirubin,Urine Negative (Negative); Blood,Urine Negative (Negative); Calcium 10.4 mg/dL (8.4-10.2); Color,Urine Yellow; Glucose,Urine (UA) Negative (Negative); Ketones,Urine Negative (Negative); Leukocyte Esterase,Urine Negative (Negative); Nitrite,Urine Negative (Negative); PH, Urine 5.5 (5.0-8.0); Potassium 4.4 mmol/L (3.5-5.1); Protein,Urine Trace (Negative); Specific Gravity,Urine 1.025 (1.001-1.035); Total Bilirubin 0.5 mg/dL (0.2-1.3); Urobilinogen,Urine <2.0 mg/dL (<2.0)
[2018-09-29 08:37] LABS: MCV 93.7 fL (80.0-100.0)
[2018-09-29] MEDS ORDERED: ASPIRIN 81 MG PO STA (09:32)
[2018-09-29] MEDS ORDERED: NITROGLYCERIN OINT 1 INCH/GM PACKET TOPICAL STA (09:32)
--- NOTE | 2018-09-29 10:12 | XR ---
EXAMINATION TYPE: XR chest 2V DATE OF EXAM: 09/29/2018 COMPARISON: 01/03/2018 HISTORY: Shortness of breath TECHNIQUE: Frontal and lateral views of the chest are obtained. FINDINGS: Scattered senescent parenchymal changes noted. Hyperinflation compatible with COPD. No evidence for infiltrate. No evidence for atelectasis. Heart size is stable. Mediastinal structures are stable and grossly unremarkable. No evidence for hilar prominence. Degenerative changes dorsal spine. IMPRESSION: 1. No evidence for acute pulmonary disease.
[2018-09-29 10:14] LABS: Creatine Kinase 48 U/L (30-135)
[2018-09-29 10:22] VITALS: RESP 18
[2018-09-29 10:26] LABS: Creatine Kinase MB 0.2 ng/mL (0.0-2.4); Troponin I <0.012 ng/mL (0.000-0.034)
[2018-09-29] MEDS ORDERED: NITROGLYCERIN SL TABS 0.4 MG TAB SUBLINGUAL PRN (10:44)
[2018-09-29] MEDS ORDERED: PRAVASTATIN SODIUM 20 MG TAB PO SCH (13:00)
--- NOTE | 2018-09-29 13:03 | P.HPIM ---
History of Present Illness H&P Date: 09/29/18 Chief Complaint: Headache and chest pain This is a 78-year-old female with a known past medical history of hypertension, Parkinson's, TIA, paroxysmal atrial fibrillation not on anticoagulation, right arm DVT a completed treatment with anticoagulation and diverticulosis. Patient also reports a history of headaches. She presents to the emergency room with complaint of a headache that started at 2 PM yesterday. Patient reports pressure on the top of her head like a hat and also the back of her head. She does report the pain starts usually in the back and moves up to the top of the head. And is usually on the left side. At home she usually takes Excedrin for relief of her headaches. She has a headache almost monthly. Tylenol does not work on her headaches. She reports she did not have any Excedrin at home. She was able to eat dinner. She did have some nausea. The headache continued she tried to sleep last night with no relief of the headache. The pain was severe enough that she could not sleep. She rated the pain about a 7 out of 10. Came into the ER for further evaluation received Toradol and IV Dilaudid with relief of the headache. ER physician reevaluated patient and at that time patient was complaining of some chest heaviness in the lower rib cage that did move up to the center of the chest. Therefore, patient will be admitted to the hospital for further cardiac workup. First troponin is negative. EKG normal sinus rhythm with nonspecific ST and T-wave abnormality. Chest x-rays negative. Cardiology has been consulted. Patient seen and examined in the ER. Patient's last computed tomography scan of the brain was done in April 2018 and was unremarkable. She's had 3 CAT scans of the brain regarding headaches and has had previous hospitalizations or ER visits regarding her headaches. At this time both the chest pain and headaches have improved. Patient's denies any dizziness or lightheadedness. Denies hitting her head. Does admit to having some blurry vision in the right eye that is continued to worsen. And she feels she is due for another eye exam. She denies any facial droop slurred speech or any lateralized weakness. Patient denies any vomiting bowel movement changes or urinary symptoms. She denies any sinus headache or congestion. Patient does report having a stress test about 6 years ago that was negative. Review of Systems Please refer to HPI otherwise unremarkable Past Medical History Past Medical History: Atrial Fibrillation, CVA/TIA, Deep Vein Thrombosis (DVT), GI Bleed, Hypertension, Musculoskeletal Disorder, Neurologic Disorder, Thyroid Disorder Additional Past Medical History / Comment(s): Recent UTI but pt reacted to antibiotics-antibiotics changed but by then pt felt better and did not take them , 01/03/18 TIA, headaches, parkinsons, rectal bleed, hemorrhoids, anemia, bronchitis, sinus problems with recent sinus infection tx with antibiotics, low back pain, UTIs, diverticular disease, colon polyps-benign, R arm DVT. History of Any Multi-Drug Resistant Organisms: None Reported Past Surgical History: Cholecystectomy, Hysterectomy, Tubal Ligation Additional Past Surgical History / Comment(s): cataract surgery bilateral with lens implants, rectocele, cystocele, colonoscopies/benign polypectomies. Past Anesthesia/Blood Transfusion Reactions: No Reported Reaction Past Psychological History: No Psychological Hx Reported Additional Psychological History / Comment(s): Pt resides in a home alone. She uses no assistive device. She drives. She has one step in her home. Smoking Status: Never smoker Past Alcohol Use History: None Reported Past Drug Use History: None Reported - Past Family History Mother Family Medical History: Cancer Additional Family Medical History / Comment(s): Mother of lung cancer at the age of 83 yrs. Father Additional Family Medical History / Comment(s): arthritis Medications and Allergies Home Medications Medication Instructions Recorded Confirmed Type Atenolol [Tenormin] 25 mg PO BID 10/28/14 09/29/18 History Carbidopa/Levodopa 1 tab PO TID 10/28/14 09/29/18 History [Carbidopa-Levodopa 25-100 Tab] Magnesium. 2 tab PO DAILY 10/28/14 09/29/18 History Losartan Potassium 100 mg PO DAILY 01/03/18 09/29/18 History Pravastatin Sodium [Pravachol] 20 mg PO Q48H 01/03/18 09/29/18 History Clopidogrel [Plavix] 75 mg PO DAILY tab 01/05/18 09/29/18 Rx Cholecalciferol [Vitamin D3] 1,000 unit PO DAILY 09/29/18 09/29/18 History amLODIPine [Norvasc] 5 mg PO HS 09/29/18 09/29/18 History Allergies Allergy/AdvReac Type Severity Reaction Status Date / Time No Known Allergies Allergy Verified 09/29/18 08:56 Physical Exam Vitals: Vital Signs Temp Pulse Resp BP Pulse Ox 09/29/18 10:15 70 18 127/60 97 09/29/18 06:03 98.1 F 74 20 156/72 97 Intake and Output 09/28/18 09/29/18 09/29/18 22:59 06:59 14:59 Other: Weight 63.503 kg Head normocephalic Neck supple. Full range of motion Lungs clear to auscultation bilaterally no wheezing or crackles. Skin no evidence of rashes or lesions Heart regular rate and rhythm S1-S2, no rub or gallop Abdomen is soft nontender nondistended positive bowel sounds no hepatosplenomegaly Extremities no edema Neuro alert and orientated to 3 Results CBC & Chem 7: 09/29/18 07:40 09/29/18 07:40 Labs: Abnormal Lab Results - Last 24 Hours (Table) 09/29/18 09/29/18 09/29/18 Range/Units 07:40 07:40 07:40 Lymphocytes # 0.9 L (1.0-4.8) k/uL BUN 22 H (7-17) mg/dL Glucose 116 H (74-99) mg/dL Calcium 10.4 H (8.4-10.2) mg/dL Urine Protein Trace H (Negative) Thrombosis Risk Factor Assmnt - Choose All That Apply Any of the Below Risk Factors Present?: Yes Other Risk Factors: Yes Each Risk Factor Represents 3 Points: Age 75 years or older, History of DVT/PE Other congenital or acquired thrombophilia - If yes, enter type in comment: No Thrombosis Risk Factor Assessment Total Risk Factor Score: 6 Thrombosis Risk Factor Assessment Level: High Risk Assessment and Plan Assessment: 1. Recurrent Headache now resolved with Toradol and Dilaudid in the ER. Last computed tomography scan of the brain was in April 2018 which was unremarkable. 2. Chest pain: Cardiac workup in progress. First set of cardiac enzymes negative. Continue to monitor serial cardiac enzymes. EKG normal sinus rhythm nonspecific ST-T wave abnormality. Cardiology consulted. Patient given aspirin and nitro in the ER. Continue Nitropaste 3. History of Parkinson's 4. History of TIA 5. History of paroxysmal atrial fibrillation did not require anticoagulation. Patient 6. Essential hypertension 7. Hypothyroidism GI prophylaxis Protonix and DVT prophylaxis subcu heparin Time with Patient: Greater than 30 (Greater than 60% of the total time spent in counseling and coordination of care.I performed an examination of the patient and discussed their management with the physician Barrel Painter. I have reviewed the Physician Barrel Painter's notes and agree with the documented findings and plan of care)
[2018-09-29 14:54] LABS: Creatine Kinase 38 U/L (30-135)
[2018-09-29 15:06] LABS: Creatine Kinase MB <0.2 ng/mL (0.0-2.4); Troponin I <0.012 ng/mL (0.000-0.034)
[2018-09-29] MEDS: CARBIDOPA-LEVODOPA 25-100 MG 1 EACH TAB PO SCH ×3 (15:16→20:04)
[2018-09-29] MEDS: CLOPIDOGREL 75 MG TAB PO SCH (15:17)
[2018-09-29] MEDS: NITROGLYCERIN OINT 1 INCH/GM PACKET TOPICAL SCH (17:00)
[2018-09-29] MEDS: ATENOLOL 25 MG TAB PO SCH ×2 (20:03→20:04)
[2018-09-29] MEDS: HEPARIN SODIUM,PORCINE 5,000 UNIT/ML 1 ML VIAL SQ SCH (20:04)
[2018-09-29 20:21] LABS: Creatine Kinase 39 U/L (30-135)
[2018-09-29 20:34] LABS: Creatine Kinase MB <0.2 ng/mL (0.0-2.4); Troponin I <0.012 ng/mL (0.000-0.034)
[2018-09-29] MEDS ORDERED: amLODIPine 5 MG TAB PO SCH (21:00)
--- NOTE | 2018-09-29 21:19 | CT ---
EXAMINATION TYPE: CT brain wo con DATE OF EXAM: 09/29/2018 COMPARISON: 04/20/2018 HISTORY: Headache. CT DLP: 926.7 mGycm Automated exposure control for dose reduction was used. FINDINGS: Ventricles have normal size. There is no mass effect nor midline shift. There is no sign of intracran ial hemorrhage. The calvarium is intact. IMPRESSION: NEGATIVE CT SCAN OF THE BRAIN. NO CHANGE.
--- NOTE | 2018-09-29 22:03 | CONS ---
CONSULTATION DATE OF CONSULTATION: 09/29/2018 CHIEF COMPLAINT: Headache. HISTORY OF PRESENT ILLNESS: Mrs. Rebolledo is a pleasant 78-year-old female who was being evaluated by the neurology service per the request of Dr. Gregg for a headache. The patient was brought into [facility] Emergency Room with complaints of a generalized headache that started at approximately 2:30 p.m. yesterday. The patient denies any history of recent headaches. She denies any recent head injuries. She did take over- the-counter Tylenol, with no relief. In the emergency room she was given IV analgesics which did resolve the headache, and she denies any recurrence at the time of my evaluation. Her CBC and urinalysis were normal. Her comprehensive metabolic profile showed mildly elevated BUN at 25 and mild hypercalcemia at 10.4. At the time of my evaluation, she is sitting at the edge of her bed and appears to be in no acute distress. She denies any neurological complaints at this time. The patient does have history of Parkinson's disease and is currently on Sinemet at home. PAST MEDICAL HISTORY: 1. Atrial fibrillation. 2. Transient ischemic attack. 3. History of deep venous thrombosis. 4. Hypertension. 5. Parkinson's disease. 6. Hypothyroidism. 7. History of GI bleed. 8. History of cataract surgery with lens implants. 9. History of polypectomies which were benign. 10.History of cystocele and rectocele. SOCIAL HISTORY: She denies any history of tobacco, alcohol or drug use. FAMILY HISTORY: Positive for cancer. HOME MEDICATIONS: Reviewed in the chart. ALLERGIES: NO KNOWN DRUG ALLERGIES. REVIEW OF SYSTEMS: As mentioned above and otherwise negative. PHYSICAL EXAMINATION: Vital signs show a temperature of 97.7, pulse 71, respiration 18, blood pressure 147/58. GENERAL APPEARANCE: The patient is a well developed, elderly female who appears to be in no acute distress. HEENT: Normocephalic, atraumatic. No facial asymmetry is seen. Extraocular muscles are intact. NECK: Supple with no masses felt. CARDIOVASCULAR: Regular rate and rhythm. ABDOMEN: Nontender, nondistended. Extremities showed no edema or clubbing. NEUROLOGICAL EXAM: The patient is awake and oriented x3. Speech and language are normal. Strength is full in all 4 extremities. Sensory exam was normal to light touch in all 4 extremities. Mild cogwheel rigidity is noticed in the left upper extremity. A resting tremor is present in the left upper extremity. No facial asymmetry is seen on cranial nerve testing. IMPRESSION: 1. Headache, resolved. 2. Parkinson's disease. RECOMMENDATION: The patient did have a subacute onset of a severe headache which continues to be resolved at this time after IV analgesic therapy given in the emergency room. She denies any recurrence at this time. No radiological imaging has been done. I will order a CT of the brain along with a CT angiogram of the brain. Her neurological examination is normal except for her parkinsonism as mentioned above. Continue Sinemet at her home dose. Continue neuro checks. I will continue to follow with you. Further recommendations to follow. Thank you, Dr. Gregg, for allowing me to participate in the care of your patient. If you have any questions, please feel free to contact me. ILYA / LEXY: [id number] /
--- NOTE | 2018-09-29 22:08 | CT ---
EXAMINATION TYPE: CT angio head DATE OF EXAM: 09/29/2018 9:03 PM COMPARISON: None HISTORY: Headache. CT DLP: 544.3 mGycm Automated exposure control for dose reduction was used. TECHNIQUE: Performed with IV Contrast, patient injected with 100ml mL of Isovue 370. . There are 3-D post processed images. FINDINGS: There is arterial flow in both distal vertebral arteries. There is arterial flow in the vertebrobasil ar artery system. There is arterial flow in the anterior middle and posterior cerebral arteries. Ther e is bilateral distal internal carotid artery flow. There is no mass effect. There is no evidence of intracranial aneurysm or neovascularity. There is normal contrast opacification of the venous sinuses . There is no evidence of intracranial arterial stenosis. IMPRESSION: NEGATIVE CT ANGIOGRAM OF THE BRAIN. NO EVIDENCE OF ANEURYSM.
[2018-09-30] MEDS: NITROGLYCERIN OINT 1 INCH/GM PACKET TOPICAL SCH ×3 (01:29→12:39)
[2018-09-30] MEDS ORDERED: PANTOPRAZOLE 40 MG TABLET PO SCH (07:30)
--- NOTE | 2018-09-30 08:11 | P.CRDCN ---
History of Present Illness Consult date: 09/30/18 Chief complaint: Chest pain History of present illness: This is a pleasant 78-year-old female patient with a past medical history significant for heart Disease, Paroxysmal Atrial Fibrillation, Hypertension, Dyslipidemia, Presented to the Emergency Room Complaining of Headache. She Was in Her Usual State of Health until about the Day before Yesterday When She Started Experiencing Headache Started Suddenly on Her in the Later Afternoon. She Took Some Tylenol without Any Improvement. When the Patient Was in the Emergency Room Getting Evaluated for the Headache She Started Experiencing Chest Discomfort, in the Mid of the Chest, As a Pressure on the Chest, without Any Radiation to the Arm or Neck or Shoulders and without Any Assisted Symptoms of Shortness of Breath, Sweating, Dizziness or Lightheadedness, or Syncope. The EKG Showed Sinus Rhythm without Any Significant ST or T-Wave Abnormalities. The Cardiac Enzymes Were Checked and Came in to Be Unremarkable. The chest x- ray showed no acute abnormalities. The computed tomography scan of the brain showed no acute abnormalities. CTA of the brain showed no aneurysm as well. Currently the patient is chest pain-free. No history of coronary artery disease. She does have paroxysmal atrial fibrillation not on any anticoagulation probably because of her Parkinson disease and possible falling and bleeding. Past Medical History Past Medical History: Atrial Fibrillation, CVA/TIA, Deep Vein Thrombosis (DVT), GI Bleed, Hypertension, Musculoskeletal Disorder, Neurologic Disorder, Thyroid Disorder Additional Past Medical History / Comment(s): Recent UTI but pt reacted to antibiotics-antibiotics changed but by then pt felt better and did not take them , 01/03/18 TIA, headaches, parkinsons, rectal bleed, hemorrhoids, anemia, bronchitis, sinus problems with recent sinus infection tx with antibiotics, low back pain, UTIs, diverticular disease, colon polyps-benign, R arm DVT. History of Any Multi-Drug Resistant Organisms: None Reported Past Surgical History: Cholecystectomy, Hysterectomy, Tubal Ligation Additional Past Surgical History / Comment(s): cataract surgery bilateral with lens implants, rectocele, cystocele, colonoscopies/benign polypectomies. Past Anesthesia/Blood Transfusion Reactions: No Reported Reaction Past Psychological History: No Psychological Hx Reported Additional Psychological History / Comment(s): Pt resides in a home alone. She uses no assistive device. She drives. She has one step in her home. Smoking Status: Never smoker Past Alcohol Use History: None Reported Past Drug Use History: None Reported - Past Family History Mother Family Medical History: Cancer Additional Family Medical History / Comment(s): Mother of lung cancer at the age of 83 yrs. Father Additional Family Medical History / Comment(s): arthritis Medications and Allergies Home Medications Medication Instructions Recorded Confirmed Type Atenolol [Tenormin] 25 mg PO BID 10/28/14 09/29/18 History Carbidopa/Levodopa 1 tab PO TID 10/28/14 09/29/18 History [Carbidopa-Levodopa 25-100 Tab] Magnesium. 2 tab PO DAILY 10/28/14 09/29/18 History Losartan Potassium 100 mg PO DAILY 01/03/18 09/29/18 History Pravastatin Sodium [Pravachol] 20 mg PO Q48H 01/03/18 09/29/18 History Clopidogrel [Plavix] 75 mg PO DAILY tab 01/05/18 09/29/18 Rx Cholecalciferol [Vitamin D3] 1,000 unit PO DAILY 09/29/18 09/29/18 History amLODIPine [Norvasc] 5 mg PO HS 09/29/18 09/29/18 History Allergies Allergy/AdvReac Type Severity Reaction Status Date / Time No Known Allergies Allergy Verified 09/29/18 08:56 Physical Exam Vitals: Vital Signs Temp Pulse Pulse Resp BP BP Pulse Ox 09/30/18 07:49 97.8 F 52 L 18 121/66 96 09/30/18 04:00 18 09/30/18 03:50 97.6 F 55 L 18 120/57 95 09/29/18 23:45 97.9 F 63 18 115/51 95 09/29/18 23:28 18 09/29/18 20:00 18 09/29/18 19:45 97.8 F 66 18 121/56 97 09/29/18 15:38 97.7 F 71 18 147/58 98 09/29/18 15:18 64 18 134/60 98 09/29/18 10:15 70 18 127/60 97 Intake and Output 09/29/18 09/30/18 09/30/18 22:59 06:59 14:59 Intake Total 222 Balance 222 Intake: Oral 222 Other: Voiding Method Toilet Toilet # Voids 1 2 Weight 67.7 kg - Constitutional General appearance: no acute distress - Respiratory Respiratory: bilateral: CTA - Cardiovascular Rhythm: regular Heart sounds: normal: S1, S2 Results 09/29/18 07:40 09/29/18 07:40 Cardiac Enzymes 09/29/18 09/29/18 09/29/18 Range/Units 07:40 07:40 14:17 AST 19 (14-36) U/L CK-MB (CK-2) 0.2 <0.2 (0.0-2.4) ng/mL Troponin I <0.012 <0.012 (0.000-0.034) ng/mL 09/29/18 Range/Units 19:24 AST (14-36) U/L CK-MB (CK-2) <0.2 (0.0-2.4) ng/mL Troponin I <0.012 (0.000-0.034) ng/mL CBC 09/29/18 Range/Units 07:40 WBC 8.3 (3.8-10.6) k/uL RBC 3.90 (3.80-5.40) m/uL Hgb 12.2 (11.4-16.0) gm/dL Hct 36.6 (34.0-46.0) % Plt Count 151 (150-450) k/uL Comprehensive Metabolic Panel 09/29/18 Range/Units 07:40 Sodium 139 (137-145) mmol/L Potassium 4.4 (3.5-5.1) mmol/L Chloride 106 (98-107) mmol/L Carbon Dioxide 25 (22-30) mmol/L BUN 22 H (7-17) mg/dL Creatinine 0.79 (0.52-1.04) mg/dL Glucose 116 H (74-99) mg/dL Calcium 10.4 H (8.4-10.2) mg/dL AST 19 (14-36) U/L ALT 13 (9-52) U/L Alkaline Phosphatase 51 (38-126) U/L Total Protein 7.0 (6.3-8.2) g/dL Albumin 3.9 (3.5-5.0) g/dL Current Medications Generic Name Dose Route Start Last Admin Trade Name Freq PRN Reason Stop Dose Admin Amlodipine Besylate 5 mg 09/29/18 21:00 09/29/18 20:04 Norvasc PO 5 mg HS LEANDRO Administration Aspirin 325 mg 09/30/18 09:00 Aspirin PO DAILY [facility] Atenolol 25 mg 09/29/18 21:00 09/29/18 20:04 Tenormin PO 25 mg BID [facility] Administration Carbidopa/Levodopa 1 each 09/29/18 16:00 09/29/18 20:04 Sinemet 25-100 PO 1 each TID [facility] Administration Cholecalciferol 1,000 unit 09/30/18 09:00 Vitamin D3 PO DAILY [facility] Clopidogrel Bisulfate 75 mg 09/29/18 13:00 09/29/18 15:17 Plavix PO 75 mg DAILY [facility] Administration Heparin Sodium (Porcine) 5,000 unit 09/29/18 21:00 09/29/18 20:04 Heparin SQ 5,000 unit Q12HR [facility] Administration Losartan Potassium 100 mg 09/30/18 09:00 Cozaar PO DAILY [facility] Magnesium Oxide 400 mg 09/30/18 09:00 Mag-Ox PO DAILY [facility] Nitroglycerin 1 inch 09/29/18 17:00 09/30/18 07:00 Nitro-Bid Oint TOPICAL Not Given Q6HR [facility] Nitroglycerin 0.4 mg 09/29/18 10:44 Nitrostat SUBLINGUAL Q5M PRN Chest Pain Pantoprazole Sodium 40 mg 09/30/18 07:30 Protonix PO AC-BRKFST [facility] Pravastatin Sodium 20 mg 09/29/18 13:00 09/29/18 15:16 Pravachol PO 20 mg Q48H [facility] Administration Intake and Output 09/29/18 09/30/18 09/30/18 22:59 06:59 14:59 Intake Total 222 Balance 222 Intake: Oral 222 Other: Voiding Method Toilet Toilet # Voids 1 2 Weight 67.7 kg 09/29/18 07:40 09/29/18 07:40 Assessment and Plan Assessment: Assessment #1 atypical chest discomfort which has resolved #2 hypertension #3 dyslipidemia #4 Parkinson disease #5 paroxysmal atrial fibrillation Plan #1 the patient was ruled out for acute coronary event #2 getting the patient up and around and if she is pain-free she possibly can go home and have stress test done as an outpatient. #3 we'll continue following up with her.
[2018-09-30] MEDS: CLOPIDOGREL 75 MG TAB PO SCH (08:47)
[2018-09-30] MEDS: HEPARIN SODIUM,PORCINE 5,000 UNIT/ML 1 ML VIAL SQ SCH (08:49)
[2018-09-30] MEDS: CARBIDOPA-LEVODOPA 25-100 MG 1 EACH TAB PO SCH (08:50)
[2018-09-30] MEDS ORDERED: CHOLECALCIFEROL 1,000 UNIT TAB PO SCH (09:00)
[2018-09-30] MEDS ORDERED: MAGNESIUM OXIDE 400 MG TAB PO SCH (09:00)
[2018-09-30] MEDS ORDERED: LOSARTAN 50 MG TAB PO SCH (09:00)
[2018-09-30] MEDS ORDERED: ASPIRIN 325 MG TAB PO SCH (09:00)
[2018-09-30 10:10] LABS: Basophils % (A) 0 %; Eosinophils # (A) 0.2 k/uL (0-0.7); Eosinophils % (A) 5 %; HCT 33.6 % (34.0-46.0); HGB 11.3 gm/dL (11.4-16.0); Lymphocytes # (A) 1.1 k/uL (1.0-4.8); Lymphocytes % (A) 32 %; MCH 31.6 pg (25.0-35.0); MCHC 33.5 g/dL (31.0-37.0); MCV 94.3 fL (80.0-100.0); Monocytes # (A) 0.3 k/uL (0-1.0); Monocytes % (A) 9 %; Neutrophils # (A) 1.7 k/uL (1.3-7.7); Neutrophils % (A) 51 %; Platelet Count 126 k/uL (150-450); RBC 3.56 m/uL (3.80-5.40); RDW 12.9 % (11.5-15.5); WBC 3.4 k/uL (3.8-10.6)
[2018-09-30 10:44] LABS: Albumin 3.3 g/dL (3.5-5.0); Calcium 9.9 mg/dL (8.4-10.2); Potassium 4.2 mmol/L (3.5-5.1); Total Bilirubin 0.6 mg/dL (0.2-1.3); Total Protein 6.1 g/dL (6.3-8.2)
[2018-09-30 11:51] VITALS: BP 100/55; PULSE 50; TEMP 97.6
--- NOTE | 2018-09-30 14:21 | P.DS ---
Providers Date of admission: 09/29/18 10:44 Expected date of discharge: 09/30/18 Attending physician: Jett Gregg Consults: 09/29/18 10:44 Consult Physician Urgent Consulting Provider: [facility] Consult Reason/Comments: Chest pain Do you want consulting provider notified?: Yes 09/29/18 13:46 Consult Physician Routine Consulting Provider: Mildred Mtz Reason/Comments: headache Do you want consulting provider notified?: Yes Primary care physician: [facility] Course: Discharge diagnosis 1. Recurrent Headache now resolved with Toradol and Dilaudid in the ER. Patient underwent a computed tomography scan of the brain which was negative and a CTA of the head also negative. Headache resolved. Was seen evaluated by neurology. 2. Chest pain: Resolved. No evidence of acute coronary syndrome. Cardiac enzymes negative 3 sets. Continue to monitor serial cardiac enzymes. EKG normal sinus rhythm nonspecific ST-T wave abnormality. Patient seen and evaluated by cardiology. They have cleared her for discharge. Recommending stress test as outpatient 3. History of Parkinson's 4. History of TIA 5. History of paroxysmal atrial fibrillation did not require anticoagulation per patient 6. Essential hypertension 7. Hypothyroidism 8. Leukopenia: Exact etiology unclear. White count 3.4 at discharge. Recommend checking CBC in 1 week Hospital course This is a 78-year-old female with a known past medical history of hypertension, Parkinson's, TIA, paroxysmal atrial fibrillation not on anticoagulation, right arm DVT a completed treatment with anticoagulation and diverticulosis. Patient also reports a history of headaches. She presents to the emergency room with complaint of a headache that started at 2 PM yesterday. Patient reports pressure on the top of her head like a hat and also the back of her head. She does report the pain starts usually in the back and moves up to the top of the head. And is usually on the left side. At home she usually takes Excedrin for relief of her headaches. She has a headache almost monthly. Tylenol does not work on her headaches. She reports she did not have any Excedrin at home. She was able to eat dinner. She did have some nausea. The headache continued she tried to sleep last night with no relief of the headache. The pain was severe enough that she could not sleep. She rated the pain about a 7 out of 10. Came into the ER for further evaluation received Toradol and IV Dilaudid with relief of the headache. ER physician reevaluated patient and at that time patient was complaining of some chest heaviness in the lower rib cage that did move up to the center of the chest. Therefore, patient will be admitted to the hospital for further cardiac workup. First troponin is negative. EKG normal sinus rhythm with nonspecific ST and T-wave abnormality. Chest x-rays negative. Cardiology has been consulted. Patient seen and examined in the ER. Patient's last computed tomography scan of the brain was done in April 2018 and was unremarkable. She's had 3 CAT scans of the brain regarding headaches and has had previous hospitalizations or ER visits regarding her headaches. At this time both the chest pain and headaches have improved. Patient's denies any dizziness or lightheadedness. Denies hitting her head. Does admit to having some blurry vision in the right eye that is continued to worsen. And she feels she is due for another eye exam. She denies any facial droop slurred speech or any lateralized weakness. Patient denies any vomiting bowel movement changes or urinary symptoms. She denies any sinus headache or congestion. Patient does report having a stress test about 6 years ago that was negative. Patient is medically stable for discharge on 09/30/2018. Her headache and chest pain have resolved. Headache workup is negative. computed tomography scan of the brain and CTA of the head is negative. Patient is scheduled to follow-up with Dr. Barber next week for routine visit. I recommend that she discusses these recurrent headaches with him. Also recommend that she continues the Excedrin which has helped her headaches in the past. Patient also seen by cardiology in regards to her chest pain. Cardiac workup negative. No evidence of an [place]. She has been up and ambulating without any chest pain. Cardiology is recommending stress test as outpatient. Patient's symptoms have improved. She is medical stable for discharge. She'll follow-up with both neurology and cardiology in the office. Please refer to chart for any further details. I performed an examination of the patient and discussed their management with the physician Pumper Helper. I have reviewed the Physician Pumper Helper's notes and agree with the documented findings and plan of care Patient Condition at Discharge: Stable Plan - Discharge Summary Discharge Rx Participant: No New Discharge Prescriptions: Continue Carbidopa/Levodopa [Carbidopa-Levodopa 25-100 Tab] 1 tab PO TID Atenolol [Tenormin] 25 mg PO BID Magnesium. 2 tab PO DAILY Pravastatin Sodium [Pravachol] 20 mg PO Q48H Losartan Potassium 100 mg PO DAILY Clopidogrel [Plavix] 75 mg PO DAILY tab Cholecalciferol [Vitamin D3] 1,000 unit PO DAILY amLODIPine [Norvasc] 5 mg PO HS Discharge Medication List Atenolol [Tenormin] 25 mg PO BID 10/28/14 [History] Carbidopa/Levodopa [Carbidopa-Levodopa 25-100 Tab] 1 tab PO TID 10/28/14 [ History] Magnesium. 2 tab PO DAILY 10/28/14 [History] Losartan Potassium 100 mg PO DAILY 01/03/18 [History] Pravastatin Sodium [Pravachol] 20 mg PO Q48H 01/03/18 [History] Clopidogrel [Plavix] 75 mg PO DAILY tab 01/05/18 [Rx] Cholecalciferol [Vitamin D3] 1,000 unit PO DAILY 09/29/18 [History] amLODIPine [Norvasc] 5 mg PO HS 09/29/18 [History] Follow up Appointment(s)/Referral(s): Kota Barber MD [STAFF PHYSICIAN] - 1 Week Jett Gregg MD [Primary Care Provider] - 1 Week Activity/Diet/Wound Care/Special Instructions: Diet: cardiac Activity: as tolerated Follow up with Dr. Barber as next week as scheduled Discharge Disposition: HOME SELF-CARE
== END 2018-09-30 15:46 | disposition home or self-care (01) ==
LOC: EC 05:28 → 1SOBS 10:44
PROVIDERS: ADMIT Internal Medicine; ATTEND Internal Medicine
DX: R51 Headache (principal); R07.89 Other chest pain; R11.0 Nausea; E03.9 Hypothyroidism, unspecified; E78.5 Hyperlipidemia, unspecified; E83.52 Hypercalcemia; G20 Parkinson's disease; I10 Essential (primary) hypertension; I48.0 Paroxysmal atrial fibrillation; D72.819 Decreased white blood cell count, unspecified; Z96.1 Presence of intraocular lens; Z98.42 Cataract extraction status, left eye; Z98.41 Cataract extraction status, right eye; Z90.710 Acquired absence of both cervix and uterus; Z80.1 Family history of malignant neoplasm of trachea, bronchus and lung; Z86.73 Personal history of transient ischemic attack (TIA), and cerebral infarction without residual deficits; Z79.899 Other long term (current) drug therapy; Z79.02 Long term (current) use of antithrombotics/antiplatelets; Z86.718 Personal history of other venous thrombosis and embolism; Z87.440 Personal history of urinary (tract) infections; Z86.010 Personal history of colon polyps; Z98.51 Tubal ligation status
CPT/HCPCS: 96372 ×2; 96361; 96374; 96375; 99285; 36415; 93005; 80061; 80053 ×2; 82550; 82553; 84484; 85025 ×2; 81003; 71046; 70496; 70450; G0378 ×2; J1644 ×2; J2405; J1885; J1170; Q9967

== ENCOUNTER → 2019-01-22 | Outpatient (CLI) | payer MEDICARE, BC ==
--- NOTE | 2019-01-22 12:48 | US ---
EXAMINATION TYPE: US abdomen complete DATE OF EXAM: 01/22/2019 COMPARISON: Prior abdomen ultrasound 03/13/2011 CLINICAL HISTORY: Abd pain R10.84. RUQ discomfort that comes and goes, NPO, GB removed in 1989 EXAM MEASUREMENTS: Liver Length: 13.7 cm CBD: 0.5 cm CHD: 0.4 cm Spleen: 9.4 cm Right Kidney: 9.8 x 4.0 x 3.9 cm Left Kidney: 8.3 x 4.6 x 5.2 cm Pancreas: Unremarkable in appearance Liver: wnl Gallbladder: Surgically absent Evidence for sonographic Garcia's sign: neg CBD: wnl CHD: wnl Spleen: wnl Right Kidney: lateral cystic appearing lesion in lower pole - 0.8 x 0.7 x 0.7 cm. Lower pole anterio r hypoechoic lesion seen, nonvascular= 2.0 x 1.7 x 1.8 cm. Left Kidney: lower pole lateral cystic appearing lesion - 1.7 x 1.5 x 1.2 cm. Lower pole echogenic lesion in cortical region - 0.9 x 0.8 x 0.7 cm Upper IVC: wnl Abd Aorta: no AAA visualized, atheromatous changes are present. There is no ascites. Right kidney shows normal cortical medullary differentiation. IMPRESSION: There are lesions associated with the kidneys which are not simple cystic. 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 Indeterminate lesion associated with the midpole the right kidney. Recommend diagnostic contrast enhanced CT or MRI through the kidneys.
== END ==
LOC: RADUSMAIN 07:50
PROVIDERS: ATTEND Internal Medicine
DX: N28.1 Cyst of kidney, acquired (principal)
CPT/HCPCS: 76700

== ENCOUNTER → 2019-02-17 | Outpatient (CLI) | payer MEDICARE, BC ==
--- NOTE | 2019-02-17 22:20 | MR ---
EXAMINATION TYPE: MR kidney wo/w con DATE OF EXAM: 02/17/2019 COMPARISON: Complete abdominal ultrasound January 22, 2019 HISTORY: cyst of kidney, recent abnormal ultrasound CONTRAST: Standard multiplanar, multisequence MRI departmental protocol utilizing 6 mL intravenous Gadavist kayy olinium contrast. Imaging is performed of the abdomen focusing on the kidneys. FINDINGS: Kidneys: Renal sizes are symmetric and felt within normal limits. Anteriorly lower pole level there i s 1.7 x 1.8 cm simple appearing exophytic cyst seen axial image 16, this is believed to correspond to the larger lesion on ultrasound. There are 3-4 additional scattered subcentimeter tiny simple appear ing cysts throughout the right kidney on MRI not as well seen on ultrasound. No worrisome solid or cy stic mass is identified. No hydronephrosis is noted. Left kidney shows exophytic simple appearing 1.4 x 1.2 cm cyst medially in the mid to lower pole of t he left kidney axial image 16 likely corresponding to larger renal lesion on ultrasound. There is non enhancing roughly 4 mm round T1 hypointense and T2 hyperintense lesion lower pole level left kidney anteriorly felt to reflect additional simple cyst. No worrisome solid or cystic renal mass in left ki dney is seen. No hydronephrosis is noted . Other: Lung bases are clear. Liver shows occasional thin-walled cyst. Gallbladder is surgically absen t. Spleen and both adrenal glands are normal in size. Pancreas is felt within normal limits. There is no suspicious small or large bowel dilatation. There is no concerning abdominal fluid collection. Th ere are diverticula in the transverse and left colon. Normal-appearing appendix is seen inferiorly fr om cecum. No abdominal ascites is present. No suspicious abdominal adenopathy is seen. There is endplate changes with disc space narrowing L3-L4 level. There is disc space narrowing L4-L5 level. There is hemangioma left T12 level. IMPRESSION: No suspicious solid or cystic masses in either kidney to correspond to recent ultrasound. Simple appearing cysts are present bilaterally.
== END | disposition home or self-care (01) ==
LOC: RADMRIMAIN 14:01
PROVIDERS: ATTEND Internal Medicine
DX: N28.1 Cyst of kidney, acquired (principal)
CPT/HCPCS: 74183; A9585

== ENCOUNTER → 2020-09-21 | Outpatient (CLI) | payer MEDICARE, BC ==
--- NOTE | 2020-09-22 10:42 | MM ---
Reason for exam: screening (asymptomatic). Last mammogram was performed 2 years and 1 month ago. History: Patient is postmenopausal. Physical Findings: A clinical breast exam by your physician is recommended on an annual basis and results should be correlated with mammographic findings. MG 3D Screening Mammo W/Cad Bilateral CC and MLO view(s) were taken. Prior study comparison: September 02, 2018, bilateral MG 3d screening mammo w/cad. July 26, 2017, bilateral MG 3d screening mammo w/cad. There are scattered fibroglandular densities. There is chronic nodularity in the right breast. There is no discrete abnormality. ASSESSMENT: Benign, BI-RAD 2 RECOMMENDATION: Routine screening mammogram of both breasts in 1 year.
== END | disposition home or self-care (01) ==
LOC: RADMAMWWP 14:52
PROVIDERS: ATTEND Internal Medicine
DX: Z12.31 Encounter for screening mammogram for malignant neoplasm of breast (principal)
CPT/HCPCS: 77063; 77067

== ENCOUNTER → 2021-02-21 | Outpatient (CLI) | payer MEDICARE, BC ==
--- NOTE | 2021-02-21 14:57 | USB ---
Reason for exam: clinical finding. History: Patient is postmenopausal. Physical Findings: Nurse Summary: Patient complains of red skin lesion, noticed 5 months ago, increased in size, improved with antibiotics 1 month ago, small red skin lesion left beast 1 o'clock (nurse mj). US Breast Limited LT Left limited breast ultrasound including focal area of concern, retroareolar and axilla demonstrates a 8 x 1 x 9mm oval, hypoechoic lesion at 1 o'clock, plaque like, located entirely in the skin layer. Scanned 12-3 o'clock particular attention to the 1 o'clock area of concern. These results were verbally communicated with the patient and result sheet given to the patient on 02/21/21. ASSESSMENT: Benign, BI-RAD 2 RECOMMENDATION: Return to routine screening mammogram schedule for both breasts. Back on schedule for September 2021. Manage patient on a clinical basis. Dermatology consult if the skin lesion does not continue to heal.
== END | disposition home or self-care (01) ==
LOC: RADUSWWP 14:06
PROVIDERS: ATTEND Internal Medicine
DX: N60.02 Solitary cyst of left breast (principal); Z78.0 Asymptomatic menopausal state

== ENCOUNTER → 2021-03-17 | Outpatient (CLI) | payer MEDICARE, BC ==
[2021-03-17 14:35] VITALS: BP 126/82; PULSE 62; RESP 14; TEMP 97.4
--- NOTE | 2021-03-17 15:32 | P.GSHP ---
History of Present Illness H&P Date: 03/17/21 Chief Complaint: sore on her left breast Katya noted a pimple like skin change on her left breast for about 6 months. She was seen in consultation by Dr. Gregg for this. This had not changed and she had a bilateral mammogram performed on . This was felt to be benign BIRADS 2. She states that subsequently the area was noted to be red. On January 26 she saw her primary care Dr. Dr. Gregg and she was given she was given a course of antibiotics (cephelexin) and a cream she put on it with some resolution. She had some improvement but not complete resolution. She had a ultrasound of the area on this revealed an 8 x 9 mm hypoechoic lesion at 1:00, this was plaque-like and located entirely in the skin layer. This was felt to be benign BIRADS 2 and routine screening mammogram for both breast in October 01 was recommended. She has not noted any other lumps masses or nodules in her breast. She is not complaining of any pain in her breast. She is not complaining of any nipple discharge or skin changes otherwise. Caffeine: 2 liter/day cola, coffee 1 cup/day nicotine: none chocolate: dove daily Family history: Mother: Lung cancer (smoker) Hormonal History: menarche: 14 1 hot by a car, breast fed: no, age at first : 22 menopause: hysterectomy complete at age 33 BCP: 2 years hormones: <1 year Surgical history: Tubal ligation Cholecystectomy Bilateral cataract surgery Coumadin 3 hysterectomy Medical history: Parkinson's disease Hypertension Atrial fibrillation Prior GI bleed Prior DVT Social History: Nicotine: Never smoker Alcohol: Negative Drugs: Negative - Constitutional Constitutional: Denies chills, Denies fever - EENT Comment: cataract surgery Eyes: bilateral blurred vision Ears: bilateral: decreased hearing (punctured eardroms as a child), deny: tinnitus Ears, nose, mouth and throat: Reports headache, Denies sore throat - Breasts Breasts: bilateral: as per HPI - Cardiovascular Comment: HTN, atrial fibrillation Cardiovascular: Denies chest pain, Denies shortness of breath - Respiratory Respiratory: Denies cough, Denies 7 - Gastrointestinal Gastrointestinal: Denies abdominal pain, Denies diarrhea, Denies nausea, Denies vomiting - Genitourinary (Female) Genitourinary: Denies dysuria, Denies hematuria - Menstruation Menstruation: Reports post hysterectomy - Musculoskeletal Musculoskeletal: Denies myalgias - Integumentary Integumentary: Reports as per HPI - Neurological Comment: parkinsons disease, TIA Neurological: Denies numbness, Denies weakness - Psychiatric Psychiatric: Denies anxiety, Denies depression - Endocrine Endocrine: Denies fatigue, Denies weight change - Hematologic/Lymphatic Comment: plavix - Allergic/Immunologic Allergic/Immunologic: Reports as per HPI Past Medical History Past Medical History: Atrial Fibrillation, CVA/TIA, Deep Vein Thrombosis (DVT), GI Bleed, Hypertension, Musculoskeletal Disorder, Neurologic Disorder, Thyroid Disorder Additional Past Medical History / Comment(s): Recent UTI but pt reacted to antibiotics-antibiotics changed but by then pt felt better and did not take them, 01/03/18 TIA, headaches, parkinsons, rectal bleed, hemorrhoids, anemia, bronchitis, sinus problems with recent sinus infection tx with antibiotics, low back pain, UTIs, diverticular disease, colon polyps-benign, R arm DVT. History of Any Multi-Drug Resistant Organisms: None Reported Past Surgical History: Cholecystectomy, Hysterectomy, Tubal Ligation Additional Past Surgical History / Comment(s): cataract surgery bilateral with lens implants, rectocele, cystocele, colonoscopies/benign polypectomies. Past Anesthesia/Blood Transfusion Reactions: No Reported Reaction Past Psychological History: No Psychological Hx Reported Additional Psychological History / Comment(s): Pt resides in a home alone. She uses no assistive device. She drives. She has one step in her home. Smoking Status: Never smoker Past Alcohol Use History: None Reported Past Drug Use History: None Reported - Past Family History Mother Family Medical History: Cancer Additional Family Medical History / Comment(s): Mother of lung cancer at the age of 83 yrs. Father Additional Family Medical History / Comment(s): arthritis Medications and Allergies Home Medications Medication Instructions Recorded Confirmed Type Carbidopa/Levodopa 1 tab PO TID 10/28/14 03/17/21 History [Carbidopa-Levodopa 25-100 Tab] Magnesium. 2 tab PO DAILY 10/28/14 03/17/21 History atenoloL [Tenormin] 25 mg PO BID 10/28/14 03/17/21 History Losartan Potassium 100 mg PO DAILY 01/03/18 03/17/21 History Clopidogrel [Plavix] 75 mg PO DAILY tab 01/05/18 03/17/21 Rx Cholecalciferol [Vitamin D3 (25 1,000 unit PO DAILY 09/29/18 03/17/21 History Mcg = 1000 Iu)] amLODIPine [Norvasc] 5 mg PO HS 09/29/18 03/17/21 History amantadine HCL [Amantadine] 100 mg PO BID 03/17/21 03/17/21 History Allergies Allergy/AdvReac Type Severity Reaction Status Date / Time No Known Allergies Allergy Verified 03/17/21 13:55 Surgical - Exam Vital Signs Temp Pulse Resp BP Pulse Ox 97.4 F L 62 14 126/82 98 03/17/21 14:22 03/17/21 14:22 03/17/21 14:22 03/17/21 14:22 03/17/21 14:22 BMI 24.6 - General no distress - Eyes normal ocular movement - ENT normal pinna, normal nares - Neck no masses, trachea midline - Respiratory normal expansion, normal respiratory effort, clear to auscultation - Cardiovascular Rhythm: regular Heart Sounds: normal: S1, S2 - Abdomen Abdomen: soft, non tender, no guarding, no rigid, no rebound - Integumentary normal turgor - Neurologic no disoriented, no combative - Musculoskeletal normal gait - Psychiatric oriented to time, oriented to person, oriented to place, speech is normal, memory intact Breast exam: BRA: 38C inspection: Bilateral grade 3 ptosis Palpation: Right breast: Fungal infection under the right breast, multiple positional exam no dominant masses or nodules of concern Right axilla: No adenopathy of concern Left breast: Skin lesion approximately 4 cm from the nipple areolar complex at the 2 o'clock position this is erythematous in nature there is no evidence of abscess and no evidence of breast mass, multiple positional exam no dominant breast masses or nodules of concern Left axilla: No adenopathy of concern Results Mammogram and ultrasound results reviewed Assessment and Plan Assessment: Impression: Parkinson's disease Hypertension Atrial fibrillation Prior GI bleed Prior DVT Probable subcutaneous breast cyst/abscess which has been partially treated with antibiotics nothing to drain at this time Fungal infection under right breast Plan: 1. Will give patient another course of antibiotic therapy recommend warm compresses to area 2. Nystatin cream under right breast 3. Follow-up in 2 weeks 4. If the area of concern persists in the left breast was consider excision of subcutaneous cyst at this site CC: Dr. Gregg
== END ==
LOC: WWCWWP 13:49
PROVIDERS: ATTEND Surgery
DX: B36.8 Other specified superficial mycoses (principal); G20 Parkinson's disease; I10 Essential (primary) hypertension; I48.91 Unspecified atrial fibrillation; Z86.718 Personal history of other venous thrombosis and embolism; Z86.73 Personal history of transient ischemic attack (TIA), and cerebral infarction without residual deficits

== ENCOUNTER → 2021-04-06 | Outpatient (CLI) | payer MEDICARE, BC ==
[2021-04-06 12:52] VITALS: BP 136/76; PULSE 57; RESP 18; TEMP 97.4
--- NOTE | 2021-04-06 13:22 | P.PN ---
Subjective Progress Note Date: 04/06/21 Principal diagnosis: red nodule left breast Katya noted a pimple like skin change on her left breast for about 6 months. She was seen in consultation by Dr. Gregg for this. This had not changed and she had a bilateral mammogram performed on . This was felt to be benign BIRADS 2. She states that subsequently the area was noted to be red. On January 26 she saw her primary care Dr., Dr. Gregg and she was given a course of antibiotics (cephelexin) and a cream she put on it with some resolution. She had some improvement but not complete resolution. She had a ultrasound of the area on this revealed an 8 x 9 mm hypoechoic lesion at 1:00, this was plaque-like and located entirely in the skin layer. This was felt to be benign BIRADS 2 and routine screening mammogram for both breast in October 01 was recommended. She has not noted any other lumps masses or nodules in her breast. She is not complaining of any pain in her breast. She is not complaining of any nipple discharge or skin changes otherwise. She was seen in our office on 03-17-21 and given another course of antibiotics and instructed to use warm compresses on the area. There was not resolution of the area. She has not complained of fever or chills. Patient states that this started as a pimple which "exploded" releasing pus like material. As given antibiotics but the area around it remained erythematous. She has no drainage at this time no pain at this time related to afever or chills but has some persistent erythema at the site. She was treated with nystatin for a fungal infection under her breast which has resolved. Caffeine: 2 liter/day cola, coffee 1 cup/day nicotine: none chocolate: dove daily Family history: Mother: Lung cancer (smoker) Hormonal History: menarche: 14 1 hot by a car, breast fed: no, age at first : 22 menopause: hysterectomy complete at age 33 BCP: 2 years hormones: <1 year Surgical history: Tubal ligation Cholecystectomy Bilateral cataract surgery Coumadin 3 hysterectomy Medical history: Parkinson's disease Hypertension Atrial fibrillation Prior GI bleed Prior DVT Social History: Nicotine: Never smoker Alcohol: Negative Drugs: Negative - Constitutional Constitutional: Denies chills, Denies fever - EENT Comment: cataract surgery Eyes: bilateral blurred vision Ears: bilateral: decreased hearing (punctured eardroms as a child), deny: tinnitus Ears, nose, mouth and throat: Reports headache, Denies sore throat - Breasts Breasts: bilateral: as per HPI - Cardiovascular Comment: HTN, atrial fibrillation Cardiovascular: Denies chest pain, Denies shortness of breath - Respiratory Respiratory: Denies cough - Gastrointestinal Gastrointestinal: Denies abdominal pain, Denies diarrhea, Denies nausea, Denies vomiting - Genitourinary (Female) Genitourinary: Denies dysuria, Denies hematuria - Menstruation Menstruation: Reports post hysterectomy - Musculoskeletal Musculoskeletal: Denies myalgias - Integumentary Integumentary: Reports as per HPI - Neurological Comment: parkinsons disease, TIA Neurological: Denies numbness, Denies weakness - Psychiatric Psychiatric: Denies anxiety, Denies depression - Endocrine Endocrine: Denies fatigue, Denies weight change - Hematologic/Lymphatic Comment: plavix - Allergic/Immunologic Allergic/Immunologic: Reports as per HPI Objective - Vital Signs Vital signs: Vital Signs Temp 97.4 F L 04/06/21 12:47 Pulse 57 L 04/06/21 12:47 Resp 18 04/06/21 12:47 BP 136/76 04/06/21 12:47 Pulse Ox 98 04/06/21 12:47 Intake & Output 04/05/21 04/06/21 04/06/21 18:59 06:59 18:59 Weight 63.049 kg - Constitutional General appearance: Present: average body habitus - EENT Eyes: Present: EOMI ENT: Present: hearing grossly normal - Neck Neck: Present: normal ROM - Respiratory Respiratory: bilateral: CTA - Cardiovascular Heart sounds: normal: S1, S2 - Integumentary Integumentary Comment(s): Of left breast evaluated Area of erythema remains persistent however there is no pain there is no capillary there is no evidence of palpable mass there is no drainage at this site The area was approximately 1 cm x 8 mm in size Is located in the 1 o'clock position Assessment and Plan Assessment: Impression: Parkinson's disease Hypertension Atrial fibrillation Prior GI bleed Prior DVT Skin lesion left breast no drainage no evidence of infection at this time but area remains erythematous Plan: 1. Consider dermatology consultation 2. Steroid cream at this time 3. Follow-up in 1 month CC: Dr. Gregg
== END ==
LOC: WWCWWP 12:32
PROVIDERS: ATTEND Surgery
DX: L98.9 Disorder of the skin and subcutaneous tissue, unspecified (principal); G20 Parkinson's disease; I10 Essential (primary) hypertension; I48.91 Unspecified atrial fibrillation; K92.2 Gastrointestinal hemorrhage, unspecified; Z86.718 Personal history of other venous thrombosis and embolism

== ENCOUNTER → 2021-05-11 | Outpatient (CLI) | payer MEDICARE, BC ==
[2021-05-11 14:29] VITALS: BP 120/79; PULSE 67; RESP 16; TEMP 97.9
--- NOTE | 2021-05-11 14:45 | P.PN ---
Progress Note - Text Progress Note Date: 05/11/21 red nodule left breast Katya noted a pimple like skin change on her left breast for about 6 months. She was seen in consultation by Dr. Gregg for this. This had not changed and she had a bilateral mammogram performed on . This was felt to be benign BIRADS 2. She states that subsequently the area was noted to be red. On January 26 she saw her primary care Dr., Dr. Gregg and she was given a course of antibiotics (cephelexin) and a cream she put on it with some resolution. She had some improvement but not complete resolution. She had a ultrasound of the area on this revealed an 8 x 9 mm hypoechoic lesion at 1:00, this was plaque-like and located entirely in the skin layer. This was felt to be benign BIRADS 2 and routine screening mammogram for both breast in October 01 was recommended. She has not noted any other lumps masses or nodules in her breast. She is not complaining of any pain in her breast. She is not complaining of any nipple discharge or skin changes otherwise. She was seen in our office on 03-17-21 and given another course of antibiotics and instructed to use warm compresses on the area. There was not resolution of the area. She has not complained of fever or chills. Patient states that this started as a pimple which "exploded" releasing pus like material. She was given antibiotics but the area around it remained erythematous. She has no drainage at this time no pain at this time related to this no fever or chills but has some persistent erythema at the site. She was treated with nystatin for a fungal infection under her breast which has resolved. Caffeine: 2 liter/day cola, coffee 1 cup/day nicotine: none chocolate: dove daily Family history: Mother: Lung cancer (smoker) Hormonal History: menarche: 14 1 hot by a car, breast fed: no, age at first : 22 menopause: hysterectomy complete at age 33 BCP: 2 years hormones: <1 year Surgical history: Tubal ligation Cholecystectomy Bilateral cataract surgery Coumadin 3 hysterectomy Medical history: Parkinson's disease Hypertension Atrial fibrillation Prior GI bleed Prior DVT Social History: Nicotine: Never smoker Alcohol: Negative Drugs: Negative - Constitutional Constitutional: Denies chills, Denies fever - EENT Comment: cataract surgery Eyes: bilateral blurred vision Ears: bilateral: decreased hearing (punctured eardroms as a child), deny: tinnitus Ears, nose, mouth and throat: Reports headache, Denies sore throat - Breasts Breasts: bilateral: as per HPI - Cardiovascular Comment: HTN, atrial fibrillation Cardiovascular: Denies chest pain, Denies shortness of breath - Respiratory Respiratory: Denies cough - Gastrointestinal Gastrointestinal: Denies abdominal pain, Denies diarrhea, Denies nausea, Denies vomiting - Genitourinary (Female) Genitourinary: Denies dysuria, Denies hematuria - Menstruation Menstruation: Reports post hysterectomy - Musculoskeletal Musculoskeletal: Denies myalgias - Integumentary Integumentary: Reports as per HPI - Neurological Comment: parkinsons disease, TIA Neurological: Denies numbness, Denies weakness - Psychiatric Psychiatric: Denies anxiety, Denies depression - Endocrine Endocrine: Denies fatigue, Denies weight change - Hematologic/Lymphatic Comment: plavix - Allergic/Immunologic Allergic/Immunologic: Reports as per HPI Physical examination: Examination of the left breast reveals the area of erythema remains persistent/this appears to be entirely located within the area of the skin with a small less than 5 mm area of nodularity Impression: 1. Patient does not have any evidence of malignancy in the breast or anything which would require biopsy at this time Plan: 1. As the area has remained erythematous I suggested that she follow with her chair and couch maker 2. Repeat bilateral mammogram in September with physician exam at that time 3. If the area of the skin change on the breast becomes more prominent would recommend being seen again sooner CC: Dr. Gregg
== END | disposition home or self-care (01) ==
LOC: WWCWWP 14:10
PROVIDERS: ATTEND Surgery
DX: N63.20 Unspecified lump in the left breast, unspecified quadrant (principal); I10 Essential (primary) hypertension; I48.91 Unspecified atrial fibrillation

== ENCOUNTER 2021-07-07 16:27 | Emergency (ER) | payer MEDICARE, BC ==
[2021-07-07 16:39] VITALS: TEMP 97.4
--- NOTE | 2021-07-07 17:50 | CT ---
EXAMINATION TYPE: CT brain yamilkaine wo con DATE OF EXAM: 07/07/2021 COMPARISON: CT brain 09/29/2018 HISTORY: Fall today with Right sided posterior injury and laceration. CT DLP: 1271.6 mGycm Automated exposure control for dose reduction was used. Ventricles have normal size. There is no mass effect nor midline shift. There is no sign of intracran ial hemorrhage. The calvarium is intact. There is fairly normal aeration of the mastoid sinuses. Cervical vertebra have normal alignment. Disc spaces are fairly normal. Posterior elements are intact . There is multilevel mild cervical facet arthropathy. Prevertebral soft tissues are intact. IMPRESSION: Brain appears normal for age. Minor spondylotic changes in the cervical spine. No fracture. Brain not changed compared to old exam.
[2021-07-07 17:51] LABS: Basophils % (A) 1 %; Eosinophils # (A) 0.1 k/uL (0-0.7); Eosinophils % (A) 2 %; HCT 39.7 % (34.0-46.0); HGB 13.4 gm/dL (11.4-16.0); Lymphocytes % (A) 17 %; MCH 32.8 pg (25.0-35.0); MCHC 33.7 g/dL (31.0-37.0); MCV 97.4 fL (80.0-100.0); Mean Platelet Volume 9.2; Monocytes # (A) 0.3 k/uL (0-1.0); Monocytes % (A) 6 %; Neutrophils # (A) 4.2 k/uL (1.3-7.7); Neutrophils % (A) 73 %; Platelet Count 158 k/uL (150-450); RBC 4.08 m/uL (3.80-5.40); WBC 5.7 k/uL (3.8-10.6)
--- NOTE | 2021-07-07 17:52 | XR ---
EXAMINATION TYPE: XR chest 2V DATE OF EXAM: 07/07/2021 COMPARISON: 09/29/2018 HISTORY: Fall. Pain. TECHNIQUE: 2 views FINDINGS: There is no heart failure nor confluent pneumonic infiltrate. Costophrenic angles are clear . Thoracic aorta is atheromatous. Pulmonary vascularity is normal. Bony thorax appears intact. IMPRESSION: No active cardiopulmonary disease. Normal heart. No change.
[2021-07-07 18:00] LABS: Albumin 4.4 g/dL (3.5-5.0); Calcium 10.8 mg/dL (8.4-10.2); Potassium 3.9 mmol/L (3.5-5.1); Total Bilirubin 0.5 mg/dL (0.2-1.3); Total Protein 7.3 g/dL (6.3-8.2)
[2021-07-07 18:06] LABS: INR 0.9 (<1.2); Prothrombin Time 10.2 sec (9.0-12.0)
[2021-07-07 18:10] LABS: Partial Thromboplastin Time 20.4 sec (22.0-30.0)
[2021-07-07] MEDS ORDERED: LIDOCAINE 1% INJ 10MG/ML (20 ML MDV) SQ ONE (18:28)
--- NOTE | 2021-07-07 18:57 | ED ---
Fall HPI - General Chief Complaint: Fall Stated Complaint: Fall, head laceration Time Seen by Provider: 07/07/21 16:54 Source: patient, family Mode of arrival: wheelchair - History of Present Illness Initial Comments: 81-year-old female presenting to emergency Department with a chief complaint of a fall. Patient has history of Parkinson's and has unsteady gait at baseline. Patient reports she got up into standing position, and then attempted to place something on the counter when she lost her balance and fell backwards. States she hit the occipital region of her head on another chair causing a laceration to the head. However, she denies any loss of consciousness of blood thinners. States there was some bleeding which has since mostly resolved. She denies any pain anywhere else.she denies any headaches, , blurry vision, chest pain, shortness of breath, one-sided weakness or paresthesias. - Related Data Home Medications Medication Instructions Recorded Confirmed Carbidopa/Levodopa 1 tab PO QID 10/28/14 07/07/21 [Carbidopa-Levodopa 25-100 Tab] atenoloL [Tenormin] 25 mg PO BID 10/28/14 07/07/21 Losartan Potassium 100 mg PO DAILY 01/03/18 07/07/21 amantadine HCL [Amantadine] 100 mg PO BID 03/17/21 07/07/21 Cholecalciferol (Vitamin D3) 125 mcg PO DAILY 07/07/21 07/07/21 [Vitamin D3 (125 MCG = 5,000 IU)] Multivitamins, Thera [Multivitamin 1 tab PO DAILY 07/07/21 07/07/21 (formulary)] hydroCHLOROthiazide [Hydrodiuril] 25 mg PO DAILY 07/07/21 07/07/21 Previous Rx's Medication Instructions Recorded Clopidogrel [Plavix] 75 mg PO DAILY tab 01/05/18 Allergies Allergy/AdvReac Type Severity Reaction Status Date / Time No Known Allergies Allergy Verified 07/07/21 18:07 Review of Systems ROS Statement: Those systems with pertinent positive or pertinent negative responses have been documented in the HPI. ROS Other: All systems not noted in ROS Statement are negative. Past Medical History Past Medical History: Atrial Fibrillation, CVA/TIA, Deep Vein Thrombosis (DVT), GI Bleed, Hypertension, Musculoskeletal Disorder, Neurologic Disorder, Thyroid Disorder Additional Past Medical History / Comment(s): Recent UTI but pt reacted to antibiotics-antibiotics changed but by then pt felt better and did not take them, 01/03/18 TIA, headaches, parkinsons, rectal bleed, hemorrhoids, anemia, bronchitis, sinus problems with recent sinus infection tx with antibiotics, low back pain, UTIs, diverticular disease, colon polyps-benign, R arm DVT. History of Any Multi-Drug Resistant Organisms: None Reported Past Surgical History: Cholecystectomy, Hysterectomy, Tubal Ligation Additional Past Surgical History / Comment(s): cataract surgery bilateral with lens implants, rectocele, cystocele, colonoscopies/benign polypectomies. Past Anesthesia/Blood Transfusion Reactions: No Reported Reaction Past Psychological History: No Psychological Hx Reported Smoking Status: Never smoker Past Alcohol Use History: None Reported Past Drug Use History: None Reported - Past Family History Mother Family Medical History: Cancer Additional Family Medical History / Comment(s): Mother of lung cancer at the age of 83 yrs. Father Additional Family Medical History / Comment(s): arthritis General Exam Limitations: no limitations General appearance: alert, in no apparent distress Head exam: Present: atraumatic, normocephalic. Absent: normal inspection (2 cm laceration on the vertex of her region of the head), other (Negative Sandoval sign, raccoon eyes, and attempted an.) Eye exam: Present: normal appearance, PERRL, EOMI Pupils: Present: normal accommodation ENT exam: Present: normal exam, normal oropharynx, mucous membranes moist, TM's normal bilaterally, normal external ear exam Neck exam: Present: normal inspection, full ROM. Absent: tenderness, meningismus, lymphadenopathy, thyromegaly Respiratory exam: Present: normal lung sounds bilaterally. Absent: respiratory distress, wheezes, rales, rhonchi, stridor, chest wall tenderness, accessory muscle use Cardiovascular Exam: Present: regular rate, normal rhythm, normal heart sounds GI/Abdominal exam: Present: soft. Absent: distended, tenderness, guarding, rebound, rigid Extremities exam: Present: normal inspection, full ROM, normal capillary refill. Absent: tenderness, pedal edema, joint swelling Back exam: Present: normal inspection, full ROM. Absent: tenderness, CVA tenderness (R), CVA tenderness (L) Neurological exam: Present: alert, oriented X3 Psychiatric exam: Present: normal affect, normal mood Skin exam: Present: warm, dry, intact, normal color Course Vital Signs 07/07/21 16:37 Temperature 97.4 F L Pulse Rate 65 Respiratory 20 Rate Blood Pressure 132/67 O2 Sat by Pulse 99 Oximetry Medical Decision Making - Medical Decision Making 81-year-old female presenting to the emergency department with a chief complaint of a fall. On physical examination, laceration to the scalp in the right occipital region of the head. This was thoroughly irrigated and repaired with 9 lilli. Patient started procedure well. CBC and coags is unremarkable. CMP reveals mild elevation of BUN and creatinine. CT of the brain and C-spine is unremarkable. Chest x-ray is also unremarkable. EKG showed no acute ischemic changes. Her son is there and states he will stay with her at the house over the next several days until she improves. Strict return parameters were thoroughly discussed with patient and her son were understanding and agreeable. Case discussed with Dr. West. - Lab Data Result diagrams: 07/07/21 17:44 07/07/21 17:44 Lab Results 07/07/21 07/07/21 07/07/21 Range/Units 17:44 17:44 17:44 WBC 5.7 (3.8-10.6) k/uL RBC 4.08 (3.80-5.40) m/uL Hgb 13.4 (11.4-16.0) gm/dL Hct 39.7 (34.0-46.0) % MCV 97.4 (80.0-100.0) fL MCH 32.8 (25.0-35.0) pg MCHC 33.7 (31.0-37.0) g/dL RDW 13.0 (11.5-15.5) % Plt Count 158 (150-450) k/uL MPV 9.2 Neutrophils % 73 % Lymphocytes % 17 % Monocytes % 6 % Eosinophils % 2 % Basophils % 1 % Neutrophils # 4.2 (1.3-7.7) k/uL Lymphocytes # 1.0 (1.0-4.8) k/uL Monocytes # 0.3 (0-1.0) k/uL Eosinophils # 0.1 (0-0.7) k/uL Basophils # 0.0 (0-0.2) k/uL PT 10.2 (9.0-12.0) sec INR 0.9 (<1.2) APTT 20.4 L (22.0-30.0) sec Sodium 135 L (137-145) mmol/L Potassium 3.9 (3.5-5.1) mmol/L Chloride 100 (98-107) mmol/L Carbon Dioxide 26 (22-30) mmol/L Anion Gap 9 mmol/L BUN 25 H (7-17) mg/dL Creatinine 1.31 H (0.52-1.04) mg/dL Est GFR (CKD-EPI)AfAm 44 (>60 ml/min/1.73 sqM) Est GFR (CKD-EPI)NonAf 39 (>60 ml/min/1.73 sqM) Glucose 116 H (74-99) mg/dL Calcium 10.8 H (8.4-10.2) mg/dL Total Bilirubin 0.5 (0.2-1.3) mg/dL AST 22 (14-36) U/L ALT 6 (4-34) U/L Alkaline Phosphatase 64 (38-126) U/L Total Protein 7.3 (6.3-8.2) g/dL Albumin 4.4 (3.5-5.0) g/dL - EKG Data EKG Comments: Sinus bradycardia Ventricular rate 57, AK 188, QRS 96, QTC 412. Disposition Clinical Impression: Fall, Scalp laceration, Head injury Disposition: HOME SELF-CARE Condition: Stable Instructions (If sedation given, give patient instructions): Laceration (DC), Fall Prevention for Older Adults (ED), Staple Care (ED) Additional Instructions: Please return to the emergency room in 12-14 days to have lilli removed. Please watch for any signs of infection which may include increased pain, swelling, redness, fever or chills. Please return to emergency room for any signs of infection do occur. Please use clean soap and water over the area to prevent scabbing over your stitches. Please leave wound covered for the first 24-48 hours and then leave wound open to air. Please return to the emergency room for any other concerns. Is patient prescribed a controlled substance at d/c from ED?: No Referrals: Jett Gregg MD [Primary Care Provider] - 1-2 days Time of Disposition: 19:00
[2021-07-07 19:29] VITALS: BP 172/75; PULSE 72; RESP 16
== END 2021-07-07 19:29 | disposition home or self-care (01) ==
LOC: EC 16:27
DX: S01.01XA Laceration without foreign body of scalp, initial encounter (principal); S09.90XA Unspecified injury of head, initial encounter; I10 Essential (primary) hypertension; Z79.899 Other long term (current) drug therapy; W22.03XA Walked into furniture, initial encounter
CPT/HCPCS: 36415; 93005; 80053; 85025; 85610; 85730; 71046; 72125; 70450; 99284; 12001; J2001

== ENCOUNTER 2021-07-22 11:11 | Emergency (ER) | payer MEDICARE, BC ==
[2021-07-22 11:26] VITALS: RESP 18
[2021-07-22] MEDS ORDERED: SODIUM CHLORIDE 0.9% 500 ML 500 ML IV STA ×2 (11:58→13:15)
[2021-07-22 12:51] LABS: Basophils % (A) 0 %; Eosinophils # (A) 0.1 k/uL (0-0.7); Eosinophils % (A) 1 %; HCT 35.4 % (34.0-46.0); HGB 12.3 gm/dL (11.4-16.0); Lymphocytes # (A) 1.2 k/uL (1.0-4.8); Lymphocytes % (A) 20 %; MCH 33.5 pg (25.0-35.0); MCHC 34.8 g/dL (31.0-37.0); MCV 96.4 fL (80.0-100.0); Mean Platelet Volume 9.3; Monocytes # (A) 0.4 k/uL (0-1.0); Monocytes % (A) 6 %; Neutrophils # (A) 4.1 k/uL (1.3-7.7); Neutrophils % (A) 70 %; Platelet Count 152 k/uL (150-450); RBC 3.67 m/uL (3.80-5.40); RDW 13.2 % (11.5-15.5); WBC 5.9 k/uL (3.8-10.6)
[2021-07-22 12:53] LABS: Appearance,Urine Cloudy (Clear); Bacteria,Urine Rare /hpf; Bilirubin,Urine Negative (Negative); Blood,Urine Negative (Negative); Color,Urine Yellow; Glucose,Urine (UA) Negative (Negative); Hyaline Casts,Urine 3 /lpf (0-2); Ketones,Urine Negative (Negative); Leukocyte Esterase,Urine Negative (Negative); Mucus,Urine Rare /hpf; Nitrite,Urine Negative (Negative); PH, Urine 5.5 (5.0-8.0); Protein,Urine Negative (Negative); RBC,Urine 1 /hpf (0-5); Specific Gravity,Urine 1.016 (1.001-1.035); Squamous Epithelial Cell,Urine 4 /hpf (0-4); Urobilinogen,Urine <2.0 mg/dL (<2.0); WBC,Urine 1 /hpf (0-5)
--- NOTE | 2021-07-22 12:59 | ED ---
Recheck HPI - General Chief Complaint: Recheck/Abnormal Lab/Rx Stated Complaint: possible med reaction Time Seen by Provider: 07/22/21 11:45 Source: patient, family Mode of arrival: wheelchair Limitations: no limitations - History of Present Illness Initial Comments: 81-year-old female with history of Parkinson's presenting to the emergency department for hallucinations. She is brought to the ED by her family members state the patient has been expressing visual and auditory hallucinations. Patient did suffer a fall and head injury about 2 weeks ago by her symptoms began about 3-4 days ago. Patient states she lives alone in a house and has been seeing a family for living in her house. She also reports hearing them. She does report interrupting with them as well. However, she knows they are not real. Patient started a new medication about one month ago, hydrochlorothiazide. She denies any urinary or vaginal symptoms. She denies any headaches, chest pain or shortness of breath. No fevers or chills at home. - Related Data Home Medications Medication Instructions Recorded Confirmed Carbidopa/Levodopa 1 tab PO QID 10/28/14 07/22/21 [Carbidopa-Levodopa 25-100 Tab] atenoloL [Tenormin] 25 mg PO BID 10/28/14 07/22/21 Losartan Potassium 100 mg PO DAILY 01/03/18 07/22/21 amantadine HCL [Amantadine] 100 mg PO BID 03/17/21 07/22/21 Cholecalciferol (Vitamin D3) 125 mcg PO DAILY 07/07/21 07/22/21 [Vitamin D3 (125 MCG = 5,000 IU)] Multivitamins, Thera [Multivitamin 1 tab PO DAILY 07/07/21 07/22/21 (formulary)] hydroCHLOROthiazide [Hydrodiuril] 25 mg PO DAILY 07/07/21 07/22/21 Clotrimazole/Betamethasone Dip 1 applic TOPICAL BID 07/22/21 07/22/21 [Lotrisone Cream] Previous Rx's Medication Instructions Recorded Clopidogrel [Plavix] 75 mg PO DAILY tab 01/05/18 Allergies Allergy/AdvReac Type Severity Reaction Status Date / Time No Known Allergies Allergy Verified 07/22/21 11:26 Review of Systems ROS Statement: Those systems with pertinent positive or pertinent negative responses have been documented in the HPI. ROS Other: All systems not noted in ROS Statement are negative. Past Medical History Past Medical History: Atrial Fibrillation, CVA/TIA, Deep Vein Thrombosis (DVT), GI Bleed, Hypertension, Musculoskeletal Disorder, Neurologic Disorder, Thyroid Disorder Additional Past Medical History / Comment(s): Recent UTI but pt reacted to antibiotics-antibiotics changed but by then pt felt better and did not take them, 01/03/18 TIA, headaches, parkinsons, rectal bleed, hemorrhoids, anemia, bronchitis, sinus problems with recent sinus infection tx with antibiotics, low back pain, UTIs, diverticular disease, colon polyps-benign, R arm DVT. History of Any Multi-Drug Resistant Organisms: None Reported Past Surgical History: Cholecystectomy, Hysterectomy, Tubal Ligation Additional Past Surgical History / Comment(s): cataract surgery bilateral with lens implants, rectocele, cystocele, colonoscopies/benign polypectomies. Past Anesthesia/Blood Transfusion Reactions: No Reported Reaction Past Psychological History: No Psychological Hx Reported Smoking Status: Never smoker Past Alcohol Use History: None Reported Past Drug Use History: None Reported - Past Family History Mother Family Medical History: Cancer Additional Family Medical History / Comment(s): Mother of lung cancer at the age of 83 yrs. Father Additional Family Medical History / Comment(s): arthritis General Exam Limitations: no limitations General appearance: alert, in no apparent distress Head exam: Present: atraumatic, normocephalic, normal inspection (Laceration on the occipital region healing well.) Eye exam: Present: normal appearance, PERRL, EOMI Pupils: Present: normal accommodation ENT exam: Present: normal exam, normal oropharynx, mucous membranes moist, TM's normal bilaterally, normal external ear exam Neck exam: Present: normal inspection, full ROM. Absent: tenderness Respiratory exam: Present: normal lung sounds bilaterally. Absent: respiratory distress, wheezes, rales, rhonchi, stridor, chest wall tenderness, accessory muscle use Cardiovascular Exam: Present: regular rate, normal rhythm, normal heart sounds. Absent: systolic murmur, diastolic murmur GI/Abdominal exam: Present: soft. Absent: distended, tenderness, guarding, rebound, rigid Extremities exam: Present: normal inspection, full ROM Back exam: Present: normal inspection, full ROM Neurological exam: Present: alert, oriented X3 Psychiatric exam: Present: normal affect, normal mood Skin exam: Present: warm, dry, intact, normal color Course Vital Signs 07/22/21 11:23 Temperature 98.1 F Pulse Rate 73 Respiratory 18 Rate Blood Pressure 131/68 O2 Sat by Pulse 97 Oximetry Medical Decision Making - Medical Decision Making 81-year-old female with history of Parkinson's presenting to the emergency department for hallucinations. On physical examination, patient is well- appearing and resting comfortably in bed. No focal neural deficits. Patient is aware that her visual and auditory hallucinations are not real. Laboratory work shows slight worsening in her renal function. She was given IV fluids. No signs of urinary tract infection. EPS evaluated the patient and they recommended outpatient follow-up. The family members also requested ophthalmology follow-up and I given contact information. They were advised to keep a close eye on the patient and have someone living with her until her situation has improved or move her to an assisted living facility. Return parameters were discussed with patient and family members were understanding and agreeable. - Lab Data Result diagrams: 07/22/21 12:44 07/22/21 12:44 Lab Results 07/22/21 07/22/21 07/22/21 Range/Units 12:44 12:44 12:44 WBC 5.9 (3.8-10.6) k/uL RBC 3.67 L (3.80-5.40) m/uL Hgb 12.3 (11.4-16.0) gm/dL Hct 35.4 (34.0-46.0) % MCV 96.4 (80.0-100.0) fL MCH 33.5 (25.0-35.0) pg MCHC 34.8 (31.0-37.0) g/dL RDW 13.2 (11.5-15.5) % Plt Count 152 (150-450) k/uL MPV 9.3 Neutrophils % 70 % Lymphocytes % 20 % Monocytes % 6 % Eosinophils % 1 % Basophils % 0 % Neutrophils # 4.1 (1.3-7.7) k/uL Lymphocytes # 1.2 (1.0-4.8) k/uL Monocytes # 0.4 (0-1.0) k/uL Eosinophils # 0.1 (0-0.7) k/uL Basophils # 0.0 (0-0.2) k/uL Sodium 138 (137-145) mmol/L Potassium 4.3 (3.5-5.1) mmol/L Chloride 106 (98-107) mmol/L Carbon Dioxide 23 (22-30) mmol/L Anion Gap 9 mmol/L BUN 32 H (7-17) mg/dL Creatinine 1.47 H (0.52-1.04) mg/dL Est GFR (CKD-EPI)AfAm 39 (>60 ml/min/1.73 sqM) Est GFR (CKD-EPI)NonAf 33 (>60 ml/min/1.73 sqM) Glucose 110 H (74-99) mg/dL Calcium 11.0 H (8.4-10.2) mg/dL Total Bilirubin 0.8 (0.2-1.3) mg/dL AST 22 (14-36) U/L ALT <6 (4-34) U/L Alkaline Phosphatase 60 (38-126) U/L Total Protein 7.0 (6.3-8.2) g/dL Albumin 4.1 (3.5-5.0) g/dL Urine Color Yellow Urine Appearance Cloudy H (Clear) Urine pH 5.5 (5.0-8.0) Ur Specific Raymond 1.016 (1.001-1.035) Urine Protein Negative (Negative) Urine Glucose (UA) Negative (Negative) Urine Ketones Negative (Negative) Urine Blood Negative (Negative) Urine Nitrite Negative (Negative) Urine Bilirubin Negative (Negative) Urine Urobilinogen <2.0 (<2.0) mg/dL Ur Leukocyte Esterase Negative (Negative) Urine RBC 1 (0-5) /hpf Urine WBC 1 (0-5) /hpf Ur Squamous Epith Cells 4 (0-4) /hpf Urine Bacteria Rare H (None) /hpf Hyaline Casts 3 H (0-2) /lpf Urine Mucus Rare H (None) /hpf - EKG Data EKG Comments: Sinus rhythm Ventricular rate 69, [place] 194, QRS 96, QTc 407. Disposition Clinical Impression: Visual hallucinations Disposition: HOME SELF-CARE Condition: Stable Instructions (If sedation given, give patient instructions): Hallucinations (ED) Additional Instructions: Please return to the Emergency Department if symptoms worsen or any other concerns. Is patient prescribed a controlled substance at d/c from ED?: No Referrals: Jett Gregg MD [Primary Care Provider] - 1-2 days Pablo Olivares MD [STAFF PHYSICIAN] - 1-2 days Time of Disposition: 16:48
[2021-07-22 13:07] LABS: ALT <6 U/L (4-34); AST 22 U/L (14-36); African American GFR (CKD) 39 (>60 ml/min/1.73 sqM); Albumin 4.1 g/dL (3.5-5.0); Alkaline Phosphatase 60 U/L (38-126); Anion Gap 9 mmol/L; Blood Urea Nitrogen 32 mg/dL (7-17); Carbon Dioxide 23 mmol/L (22-30); Chloride 106 mmol/L (98-107); Glucose 110 mg/dL (74-99); Non-African American GFR(CKD) 33 (>60 ml/min/1.73 sqM); Potassium 4.3 mmol/L (3.5-5.1); Sodium 138 mmol/L (137-145); Total Bilirubin 0.8 mg/dL (0.2-1.3)
[2021-07-22 17:04] VITALS: BP 128/69; PULSE 68; TEMP 98.3
== END 2021-07-22 17:08 | disposition home or self-care (01) ==
LOC: EC 11:11
DX: R44.1 Visual hallucinations (principal); R44.0 Auditory hallucinations; I10 Essential (primary) hypertension; I48.91 Unspecified atrial fibrillation; Z79.899 Other long term (current) drug therapy
CPT/HCPCS: 36415; 80053; 81001; 85025; 99285

== ENCOUNTER 2021-07-24 10:50 | Inpatient (IN) | payer MEDICARE, BC ==
[2021-07-24 14:21] LABS: Basophils % (A) 1 %; Eosinophils # (A) 0.1 k/uL (0-0.7); Eosinophils % (A) 2 %; HCT 36.6 % (34.0-46.0); HGB 12.7 gm/dL (11.4-16.0); Lymphocytes # (A) 1.5 k/uL (1.0-4.8); Lymphocytes % (A) 23 %; MCH 33.4 pg (25.0-35.0); MCHC 34.6 g/dL (31.0-37.0); MCV 96.4 fL (80.0-100.0); Monocytes # (A) 0.5 k/uL (0-1.0); Monocytes % (A) 8 %; Neutrophils # (A) 4.3 k/uL (1.3-7.7); Neutrophils % (A) 65 %; Platelet Count 140 k/uL (150-450); RBC 3.79 m/uL (3.80-5.40); RDW 13.2 % (11.5-15.5); WBC 6.6 k/uL (3.8-10.6)
--- NOTE | 2021-07-24 14:33 | ED ---
General Adult HPI - General Chief complaint: Psychiatric Symptoms Stated complaint: abn CT results Source: patient, family Mode of arrival: wheelchair Limitations: no limitations - History of Present Illness Initial comments: Patient is an 81-year-old female presents emergency Department with reported hallucinations. Patient's sustained a fall on July 07 due to her Parkinson's. She did hit her head and sustained a laceration which required 8 lilli. Family is at bedside and states that approximately 6 days ago the patient began having hallucinations. She states that she sees patterns on the [place]. Patient also sees [employer] men outside of her house and people inside her house walking around. She also reports that she sees spiders. The patient has become very paranoid because of these auditory and visual was nations. She was seen in the emergency department on the due to this. She was evaluated by EPS he stated that the patient needed a follow-up outpatient. They saw Dr. Finch today who wanted the patient to have a repeat scan of her head performed and felt that she needed a psychiatry evaluation. The family states that the hallucinations have been getting worse. She does not demonstrate anything like this prior to her head injury. They don't think that she is taking her medications appropriately. Dr. Finch instructed them to come into the emergency room for further evaluation. The patient denies any headaches. No neck pain. 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 - Related Data Home Medications Medication Instructions Recorded Confirmed Carbidopa/Levodopa 1 tab PO QID 10/28/14 07/24/21 [Carbidopa-Levodopa 25-100 Tab] atenoloL [Tenormin] 25 mg PO BID 10/28/14 07/24/21 Losartan Potassium 100 mg PO DAILY 01/03/18 07/24/21 amantadine HCL [Amantadine] 100 mg PO BID 03/17/21 07/24/21 Cholecalciferol (Vitamin D3) 125 mcg PO DAILY 07/07/21 07/24/21 [Vitamin D3 (125 MCG = 5,000 IU)] Multivitamins, Thera [Multivitamin 1 tab PO DAILY 07/07/21 07/24/21 (formulary)] hydroCHLOROthiazide [Hydrodiuril] 25 mg PO DAILY 07/07/21 07/24/21 Clotrimazole/Betamethasone Dip 1 applic TOPICAL BID 07/22/21 07/24/21 [Lotrisone Cream] Previous Rx's Medication Instructions Recorded Clopidogrel [Plavix] 75 mg PO DAILY tab 01/05/18 Allergies Allergy/AdvReac Type Severity Reaction Status Date / Time No Known Allergies Allergy Verified 07/24/21 13:54 Review of Systems ROS Statement: Those systems with pertinent positive or pertinent negative responses have been documented in the HPI. ROS Other: All systems not noted in ROS Statement are negative. Past Medical History Past Medical History: Atrial Fibrillation, CVA/TIA, Deep Vein Thrombosis (DVT), GI Bleed, Hypertension, Musculoskeletal Disorder, Neurologic Disorder, Thyroid Disorder Additional Past Medical History / Comment(s): Recent UTI but pt reacted to antibiotics-antibiotics changed but by then pt felt better and did not take them, 01/03/18 TIA, headaches, parkinsons, rectal bleed, hemorrhoids, anemia, bronchitis, sinus problems with recent sinus infection tx with antibiotics, low back pain, UTIs, diverticular disease, colon polyps-benign, R arm DVT. History of Any Multi-Drug Resistant Organisms: None Reported Past Surgical History: Cholecystectomy, Hysterectomy, Tubal Ligation Additional Past Surgical History / Comment(s): cataract surgery bilateral with lens implants, rectocele, cystocele, colonoscopies/benign polypectomies. Past Anesthesia/Blood Transfusion Reactions: No Reported Reaction Past Psychological History: No Psychological Hx Reported Smoking Status: Never smoker Past Alcohol Use History: None Reported Past Drug Use History: None Reported - Past Family History Mother Family Medical History: Cancer Additional Family Medical History / Comment(s): Mother of lung cancer at the age of 83 yrs. Father Additional Family Medical History / Comment(s): arthritis General Exam Limitations: no limitations Course Vital Signs 07/24/21 11:21 Temperature 97.6 F Pulse Rate 55 L Respiratory 16 Rate Blood Pressure 184/76 O2 Sat by Pulse 98 Oximetry EKG Findings - EKG Comments: EKG Findings:: EKG demonstrates sinus bradycardia with a ventricular rate of 52. AK interval 170. QRS 84. QTC 396. No acute ST segment elevations or depressions concerning for ischemic changes Medical Decision Making - Medical Decision Making Upon arrival patient is placed into room 6. A thorough history and physical exam was performed. IV is established. Laboratory studies are conducted and reviewed. CT is performed which demonstrates age-related atrophic and chronic small vessel ischemia without acute process. I do believe the patient would benefit from hospitalization with neurology, ophthalmology and psychiatry consult. Spoke with Dr. Gregg who agreed to admit the patient. She agreed to the treatment plan and is awaiting a bed on the floor - Lab Data Result diagrams: 07/24/21 14:12 07/24/21 14:12 Lab Results 07/24/21 07/24/21 07/24/21 Range/Units 14:12 14:12 14:12 WBC 6.6 (3.8-10.6) k/uL RBC 3.79 L (3.80-5.40) m/uL Hgb 12.7 (11.4-16.0) gm/dL Hct 36.6 (34.0-46.0) % MCV 96.4 (80.0-100.0) fL MCH 33.4 (25.0-35.0) pg MCHC 34.6 (31.0-37.0) g/dL RDW 13.2 (11.5-15.5) % Plt Count 140 L (150-450) k/uL MPV 9.0 Neutrophils % 65 % Lymphocytes % 23 % Monocytes % 8 % Eosinophils % 2 % Basophils % 1 % Neutrophils # 4.3 (1.3-7.7) k/uL Lymphocytes # 1.5 (1.0-4.8) k/uL Monocytes # 0.5 (0-1.0) k/uL Eosinophils # 0.1 (0-0.7) k/uL Basophils # 0.0 (0-0.2) k/uL PT 10.3 (9.0-12.0) sec INR 1.0 (<1.2) APTT 21.1 L (22.0-30.0) sec Sodium 140 (137-145) mmol/L Potassium 4.1 (3.5-5.1) mmol/L Chloride 110 H (98-107) mmol/L Carbon Dioxide 23 (22-30) mmol/L Anion Gap 7 mmol/L BUN 22 H (7-17) mg/dL Creatinine 1.04 (0.52-1.04) mg/dL Est GFR (CKD-EPI)AfAm 59 (>60 ml/min/1.73 sqM) Est GFR (CKD-EPI)NonAf 51 (>60 ml/min/1.73 sqM) Glucose 97 (74-99) mg/dL Calcium 10.6 H (8.4-10.2) mg/dL Total Bilirubin 0.9 (0.2-1.3) mg/dL AST 27 (14-36) U/L ALT 7 (4-34) U/L Alkaline Phosphatase 64 (38-126) U/L Creatine Kinase 124 (30-135) U/L Total Protein 7.1 (6.3-8.2) g/dL Albumin 4.1 (3.5-5.0) g/dL Disposition Clinical Impression: Visual hallucinations, Fall, Concussion Disposition: ADMITTED IP TO THIS [facility] Condition: Stable Is patient prescribed a controlled substance at d/c from ED?: No Referrals: Jett Gregg MD [Primary Care Provider] - 1-2 days Decision to Admit Reason: Admit from EC Decision Date: 07/24/21 Decision Time: 15:33
[2021-07-24 14:34] LABS: Albumin 4.1 g/dL (3.5-5.0); Calcium 10.6 mg/dL (8.4-10.2); Potassium 4.1 mmol/L (3.5-5.1); Total Bilirubin 0.9 mg/dL (0.2-1.3); Total Protein 7.1 g/dL (6.3-8.2)
[2021-07-24 14:53] LABS: Partial Thromboplastin Time 21.1 sec (22.0-30.0); Prothrombin Time 10.3 sec (9.0-12.0)
--- NOTE | 2021-07-24 15:20 | CT ---
EXAMINATION TYPE: CT brain wo con DATE OF EXAM: 07/24/2021 COMPARISON: 07/07/21 HISTORY: Altered mental status CT DLP: 1084.[address] of the brain was performed. The ventricles, basal cisterns and sulci overlying the cerebral convexities demonstrate mild enlargem ent. There is no evidence for intracranial hemorrhage or sulcal effacement. There is decreased attenuation about the periventricular white matter and deep white matter of both c erebral hemispheres, compatible with chronic small vessel ischemia. Differential diagnosis does inclu de demyelination. No mass effects are seen.No midline shift. Osseous calvarium is intact. If symptoms persist consider MRI. IMPRESSION: 1. Age related atrophic and chronic small vessel ischemic change without acute intracranial process s een at this time.
[2021-07-24] MEDS ORDERED: NALOXONE 0.4 MG/ML 1 ML VIAL IV PRN (15:33)
[2021-07-24 16:34] LABS: Appearance,Urine Clear (Clear); Bilirubin,Urine Negative (Negative); Blood,Urine Negative (Negative); Color,Urine Yellow; Glucose,Urine (UA) Negative (Negative); Ketones,Urine Negative (Negative); Leukocyte Esterase,Urine Negative (Negative); Nitrite,Urine Negative (Negative); PH, Urine 5.5 (5.0-8.0); Protein,Urine Negative (Negative); Specific Gravity,Urine 1.017 (1.001-1.035); Urobilinogen,Urine <2.0 mg/dL (<2.0)
[2021-07-24] MEDS: LOSARTAN 50 MG TAB PO SCH (16:49)
[2021-07-24] MEDS: MULTIVITAMINS, THERA 1 EACH TAB PO SCH (16:49)
[2021-07-24] MEDS: hydroCHLOROthiazide 25 MG TAB PO SCH (16:49)
[2021-07-24] MEDS: CLOPIDOGREL 75 MG TAB PO SCH (16:49)
[2021-07-24 16:55] LABS: Amphetamine Screen,Urine Not Detected (NotDetected); Barbiturate Screen,Urine Not Detected (NotDetected); Benzodiazepines Screen,Urine Not Detected (NotDetected); Cocaine Screen,Urine Not Detected (NotDetected); Methadone Screen, Urine Not Detected (NotDetected); Opiate Screen,Urine Not Detected (NotDetected); Oxycodone Screen, Urine Not Detected (NotDetected); Phencyclidine Screen,Urine Not Detected (NotDetected); Tricyclic Antidepressant,Urine Not Detected (NotDetected); Urn Cannabinoid Scrn Not Detected (NotDetected)
[2021-07-24] MEDS: CARBIDOPA-LEVODOPA 25-100 MG 1 EACH TAB PO SCH ×2 (20:55→21:18)
[2021-07-24] MEDS: atenoloL 25 MG TAB PO SCH (21:18)
[2021-07-25 06:57] LABS: Basophils % (A) 1 %; Eosinophils # (A) 0.1 k/uL (0-0.7); Eosinophils % (A) 3 %; HCT 34.9 % (34.0-46.0); HGB 11.9 gm/dL (11.4-16.0); Lymphocytes # (A) 1.3 k/uL (1.0-4.8); Lymphocytes % (A) 27 %; MCH 33.3 pg (25.0-35.0); MCV 97.9 fL (80.0-100.0); Mean Platelet Volume 9.3; Monocytes # (A) 0.3 k/uL (0-1.0); Monocytes % (A) 6 %; Neutrophils # (A) 2.9 k/uL (1.3-7.7); Neutrophils % (A) 61 %; Platelet Count 125 k/uL (150-450); RBC 3.56 m/uL (3.80-5.40); RDW 12.6 % (11.5-15.5); WBC 4.8 k/uL (3.8-10.6)
[2021-07-25 07:17] LABS: African American GFR (CKD) 61 (>60 ml/min/1.73 sqM); Anion Gap 3 mmol/L; Blood Urea Nitrogen 21 mg/dL (7-17); Calcium 10.3 mg/dL (8.4-10.2); Carbon Dioxide 29 mmol/L (22-30); Chloride 108 mmol/L (98-107); Glucose 94 mg/dL (74-99); Non-African American GFR(CKD) 53 (>60 ml/min/1.73 sqM); Potassium 3.8 mmol/L (3.5-5.1); Sodium 140 mmol/L (137-145)
[2021-07-25] MEDS: atenoloL 25 MG TAB PO SCH ×2 (07:54→18:52)
[2021-07-25] MEDS: LOSARTAN 50 MG TAB PO SCH (08:19)
[2021-07-25] MEDS: CLOPIDOGREL 75 MG TAB PO SCH (08:19)
[2021-07-25] MEDS: hydroCHLOROthiazide 25 MG TAB PO SCH (08:19)
[2021-07-25] MEDS: CARBIDOPA-LEVODOPA 25-100 MG 1 EACH TAB PO SCH ×4 (08:19→21:26)
[2021-07-25] MEDS: CHOLECALCIFEROL 25 MCG (1000 IU) TABLET PO SCH (08:19)
[2021-07-25] MEDS: MULTIVITAMINS, THERA 1 EACH TAB PO SCH (08:22)
--- NOTE | 2021-07-25 08:34 | P.CNNES ---
History of Present Illness Consult date: 07/25/21 Requesting physician: So Ibry Reason for Consult: acute visual hallucination s/p concussion History of Present Illness: An 81-year-old woman with medical history of ptosis disease, hypertension who presented to the emergency department on 07/24/2021 for reported hallucination. Some of the history was obtained from medical record. The patient had a fall on 07/07/2021 due to her Parkinson as a result she sustained laceration of the head and required 8 lilli. Patient stated that the she had a fall because the one that basically she was walking she felt lightheaded and as a result she fell she said that that she thinks she was a awake during the entire episode and she denies any urinary or bowel incontinence or any tongue soreness. Then about 6 days ago prior to presented to the hospital she started having visual hallucination as seeing pattern of the bailey, spinder webs, bugs, sees army men outside her house as well as inside her house walking around. Regarding the people she see, it could be any different people even children and she talks to them but they do not talk to her. Per the ED she has auditory hallucination but she did not provide any history of people talking to her and she per ED team she has become very paranoid and having as well as auditory hallucination. She sees thing any time of the day. She was seen by her neurologist (Dr. Barber) on 07/24/2021 and her neurologist felt she needed the psychiatry evaluation. According to the ED notes of family felt she did not have the these issues prior to the head injury and the family the think that she's not taking her medication appropriately. Patient denies of any headache, fever. She said she lives by herself and prior to fall has not been using any assistance walking but since fall using a cane. She denies of any focality. She feels her right eye is blurry but denies diplopia. Denies any change to her Parkinson's disease (she said she had it for at least 10 years and stated she has tremor at rest and with action of both upper extremities). Patient denies history of seizures. Some of the patient's home medications: Sinemet 80293 tablet 4 times a day, amantadine 100 mg 1 tablet twice a day, multivitamins, Plavix 75 mg daily, vitamin D3 on the 25 g daily, atenolol 25 minute gram a tablet twice a day, hy drochlorothiazide. Some of the workup in the hospital consisted of: Initial vital signs: Blood pressure on presentation is 184/76, heart rate of 55, respiratory of 16, temperature of 97.6 Fahrenheit oral and pulse ox of 98% room air. Patient has been afebrile since the patient is been our facility. CT of the head is reported as age-related atrophic and chronic small vessel ischemic change without acute intracranial process seen at this time. I cannot personally review the CT of the head since its unavailable to be reviewed. EKG is reported as sinus bradycardia. Nonspecific ST and T-wave abnormality. CBC with differential is the white blood cell is 6.6 thousand which is within normal presentation, hemoglobin 12.7, hematocrit is 36.6 which is within normal limits at. The platelet is the one 140,000 which is a little low. Chemistry panel as sodium is 140, creatinine is 1.04, calcium as the M.6 and the repeat his temper 3 which is slightly elevated, AST 27 ALT is 7 and the CK level is 124 which seems unremarkable. Review of Systems Review of system: The 12 point system was reviewed and apparent positive and negative per HPI. Past Medical History Past Medical History: Atrial Fibrillation, CVA/TIA, Deep Vein Thrombosis (DVT), GI Bleed, Hypertension, Musculoskeletal Disorder, Neurologic Disorder, Thyroid Disorder Additional Past Medical History / Comment(s): 01/03/18 TIA, headaches, parkinsons, rectal bleed, hemorrhoids, anemia, bronchitis, sinus problems with recent sinus infection tx with antibiotics, low back pain, UTIs, diverticular disease, colon polyps-benign, R arm DVT. Left hip pain worse than right hip chronic. History of Any Multi-Drug Resistant Organisms: None Reported Past Surgical History: Cholecystectomy, Hysterectomy, Tubal Ligation Additional Past Surgical History / Comment(s): cataract surgery bilateral with lens implants, rectocele, cystocele, colonoscopies/benign polypectomies. Past Anesthesia/Blood Transfusion Reactions: No Reported Reaction Past Psychological History: No Psychological Hx Reported Additional Psychological History / Comment(s): Pt resides in a home alone. She uses no assistive device. Family checks on her routinely, daughter lives behind her. Smoking Status: Never smoker Past Alcohol Use History: None Reported Past Drug Use History: None Reported - Past Family History Mother Family Medical History: Cancer Additional Family Medical History / Comment(s): Mother of lung cancer at the age of 83 yrs. Father Additional Family Medical History / Comment(s): arthritis Medications and Allergies Home Medications Medication Instructions Recorded Confirmed Type Carbidopa/Levodopa 1 tab PO QID 10/28/14 07/24/21 History [Carbidopa-Levodopa 25-100 Tab] atenoloL [Tenormin] 25 mg PO BID 10/28/14 07/24/21 History Losartan Potassium 100 mg PO DAILY 01/03/18 07/24/21 History Clopidogrel [Plavix] 75 mg PO DAILY tab 01/05/18 07/24/21 Rx amantadine HCL [Amantadine] 100 mg PO BID 03/17/21 07/24/21 History Cholecalciferol (Vitamin D3) 125 mcg PO DAILY 07/07/21 07/24/21 History [Vitamin D3 (125 MCG = 5,000 IU)] Multivitamins, Thera [Multivitamin 1 tab PO DAILY 07/07/21 07/24/21 History (formulary)] hydroCHLOROthiazide [Hydrodiuril] 25 mg PO DAILY 07/07/21 07/24/21 History Clotrimazole/Betamethasone Dip 1 applic TOPICAL BID 07/22/21 07/24/21 History [Lotrisone Cream] [id number] 2 tab PO Q8HR PRN 07/24/21 07/24/21 History [Excedrin] Propylene Glycol/Peg 400/Pf 1 drop BOTH EYES ONCE PRN 07/24/21 07/24/21 History [Systane 0.3-0.4% Eye Drop] Allergies Allergy/AdvReac Type Severity Reaction Status Date / Time No Known Allergies Allergy Verified 07/24/21 13:54 Physical Examination - Vital Signs Vital Signs: Vital Signs Temp Pulse Pulse Pulse Resp BP BP 07/25/21 04:50 99.3 F 53 L 20 137/79 07/24/21 19:15 98 F 67 18 165/78 07/24/21 16:52 60 18 167/72 07/24/21 11:21 97.6 F 55 L 16 184/76 Pulse Ox 07/25/21 04:50 96 07/24/21 19:15 98 07/24/21 16:52 100 07/24/21 11:21 98 Intake and Output 07/24/21 07/25/21 07/25/21 22:59 06:59 14:59 Intake Total 200 Balance 200 Intake: Oral 200 Other: # Voids 1 Weight 64.41 kg GENERAL: The patient is lying in bed and is not in acute distress. CHEST: The heart rate is regular rate rhythm. No murmurs to auscultation. No carotid bruit bilaterally. LUNG: Clear to auscultation bilaterally no wheezing noted throughout. Not labored breathing. ABDOMEN/GI: Bowel sounds present in all 4 quadrants. No tenderness to palpation throughout. NEUROLOGICAL: Higher mental function: The patient is awake, alert, oriented to self, place and time. Patient is following commands. No aphasia and no neglect. Cranial nerves: The pupils are round, equal and reactive to light and accommodation. Visual martin are full to confrontation throughout. Extraocular movement is intact no nystagmus is noted. Facial sensation is normal to touch throughout. The facial strength is normal throughout. Hearing is normal bilaterally to hand rub. Tongue is midline and moved [id number] without any difficulty. No dysarthria is noted. Shoulder shrug is normal bilaterally. Motor: Gait is deferred. The strength is 5 over 5 throughout. Normal tone and bulk. Cerebellum: Normal finger to nosebilaterally. Sensation: Sensation is normal to touch throughout. Reflexes (right/left): 2+ throughout uppers. Patellar are 1-2+ bilaterally and ankles are 1+ bilaterally. Plantars are downgoing bilaterally. Results Urinalysis is negative for urinary tract infection. Conn virus PCR was not detected Urine drug screen is not detected. - Laboratory Findings CBC and BMP: 07/25/21 06:28 07/25/21 06:28 Abnormal Lab Findings: Abnormal Labs 07/24/21 07/24/21 07/24/21 14:12 14:12 14:12 RBC 3.79 L Plt Count 140 L APTT 21.1 L Chloride 110 H BUN 22 H Calcium 10.6 H 07/25/21 07/25/21 06:28 06:28 RBC 3.56 L Plt Count 125 L APTT Chloride 108 H BUN 21 H Calcium 10.3 H Assessment and Plan Assessment: Predominant visual hallucination but has reported auditory hallucination as well as paranoia around 6 days prior to presentation to the hospital. Unsure exact etiology. Had a fall 07/07/2021 (she said was light headed). Parkinson's disease Hypertension Plan: * The patient was continued on her home Sinemet dose of 25-100 1 tab qid. I decreased the amantadine from 100 mg twice a day 2 daily and it's only in the morning since amantadine the as a stimulant and should not be used at nighttime (should avoid using it past 2:00 in afternoon). * I ordered MRI of the brain with and without to rule out any intracranial pathology leading to the patient's symptoms. * Ordered routine EEG and will not start the patient on antiepileptic drug unless there is epileptiform discharges or seizure on the EEG. * Ordered TSH, vitamin B12 and folate level and orthostatic. * Every 4 hours neuro checks * Consulted physical therapy and occupation therapy. Placed on fall precaution. * Psychiatry is consulted * Ophthalmology team is consulted. * We'll defer the rest of the medical management to the primary team. * Upon discharge, the patient needs to follow-up with her neurologist (Dr. Barber) as outpatient within 1-2 weeks. The plan is discussed with the patient's nurse. Thank you for the consultation. Gary Kincaid M.D. Neuro-hospitalist Time with Patient: Greater than 30
--- NOTE | 2021-07-25 13:56 | P.CN ---
Psychiatric Consult - . Consult date: 07/25/21 Consult:: 07/25/21 13:16 IDENTIFYING DATA: This patient is a , retired, 81-year-old female with a significant history of Parkinson's disease who presents with acute visual hallucinations. This provider attempted to see the patient but she is currently undergoing an MRI and EEG. We will reattempt to evaluate the patient tomorrow morning. As per review of the patients chart: The patient presented to the hospital on 07/24/2021, brought in by her family for reported hallucinations. As per chart review, the patient sustained a fall on July 07 due to her Parkinson's disease. She sustained a head laceration and required 8 lilli. Approximately 6 days prior to her presentation in the emergency department, the patient began having hallucinations. She was noted to be seeing different patterns on the bailey, harming men outside of her house, and people inside her house walking around. She is also been noted to be seeing spiders. As per chart review, the patient has also become very paranoid because of these auditory and visual hallucinations. She is evaluated by EPS on 07/22/2021, and was informed to follow-up in the outpatient setting. The patient was evaluated by Dr. Finch who wanted the patient to have repeat scan of her head as well as a psychiatric evaluation. Currently Neurology is following and ordered MRI and EEG. Patient is currently not on any psychotropic medications aside from medication for management of Parkinsons. We will undergo a psychiatric evaluation tomorrow. -Jaswinder Leonard MD Vital Signs Temp 97.5 F L 07/25/21 12:36 Pulse 51 L 07/25/21 12:36 Resp 17 07/25/21 12:36 BP 155/73 07/25/21 12:36 Pulse Ox 97 07/25/21 12:36 07/25/21 13:54
--- NOTE | 2021-07-25 16:13 | MR ---
EXAMINATION TYPE: MR brain wo/w con DATE OF EXAM: 07/25/2021 COMPARISON: CT brain 07/24/2021 HISTORY: Visual hallucination, Rule out mass, fell and hit head two weeks ago TECHNIQUE: Multiplanar, multisequence images of the brain and brainstem is performed without and with IV contras t, utilizing 6.5 mL intravenous Gadavist . FINDINGS: Diffusion weighted images demonstrate no evidence of a recent infarct or other diffusion ab normality. There is no extra-axial fluid collection. Confluent and scattered hyperintensities prese nt in the pericallosal, periventricular, subcortical white matter on inversion recovery T2-weighted s equences. The ventricular system and cisternal spaces are normal in size and appearance. The brain v olume is age appropriate, there is cortical atrophy. Along the lateral margin of the right orbit, med ial aspect of the middle cranial fossa there is an isointense focus on T1 and T2-weighted sequences w hich appears dural-based shows homogenous enhancement on contrast measuring 1 cm in diameter, axial i mage 10 of the T2 data set, axial image 38 postcontrast. There are changes of hyperostosis frontalis interna. Midline structures demonstrate normal morphology. The craniocervical junction appears within normal limits. The dural venous sinuses appear patent. The visualized sinuses are clear and the globes are i ntact. IMPRESSION: Age-related changes of atrophy and probable chronic small vessel ischemia. 1 cm meningiom a in the middle cranial fossa on the right medially.
--- NOTE | 2021-07-25 17:35 | EEG ---
ELECTROENCEPHALOGRAM REPORT DATE OF SERVICE: 07/25/2021 CLINICAL HISTORY: This is an an 81-year-old woman with episodes of visual hallucination. The video EEG is obtained to evaluate for seizure epileptiform activity. RELEVANT MEDICATION: The patient is not on any antiepileptic drug. EEG TYPE: A routine 21-channel EEG is performed with video using the 10/20 electrode placement system. DESCRIPTION: Wakefulness is only obtained. During wakefulness, there is a posterior-dominant rhythm of low to moderate voltage of 8-9 hertz activity that is well modulated. There is no sleep architecture seen. There is no focal slowing seen. Interictal and ictal is none. ACTIVATION PROCEDURE: Photic stimulation did evoke a posterior driving response at multiple low flash frequencies. There is no abnormality during the photic stimulation. Hyperventilation is not performed. CLINICAL INTERPRETATION: This is a normal routine EEG. There are no focal slowing, epileptiform discharges or seizure on the EEG. Clinical correlation is recommended. ILYA / LEXY: [id number] / MTDD
--- NOTE | 2021-07-25 19:07 | P.HPIM ---
History of Present Illness H&P Date: 07/25/21 Katya Rebolledo, is an 81-year-old female who presented to [facility] emergency room with a chief complaint of visual hallucinations, patient stated that she had a fall on July 07, 2021 she sustained a laceration to the right occipital area, with a large laceration , she came to emergency room and had 9 lilli placed. Patient stated that about 1 week after her fall she started having visual hallucinations, initially she started seen at times on the wall, however subsequently she started seeing spiders and Army men, patient started becoming fearful and paranoid because of her hallucinations, she was seen again in the emergency room and was referred to her neurologist Dr. Crump for further evaluation and treatment , however patient continued to have worse hallucinations and family decided to bring her back to emergency room for further evaluation. She was evaluated in the emergency room, vital examination on presentation revealed a temperature of 97.6 pulse 55 respirations 16 blood pressure 184/76 pulse ox 98% on room air Laboratory data revealed a white blood count of 6.6 hemoglobin 12.7 platelet count 140 sodium 140 potassium 4.1 chloride 110 CO2 23 BUN 22 creatinine 1.04 Computed tomography scan of the brain without contrast done in the emergency room revealed age-related atrophic and chronic small vessel ischemic changes without acute intracranial process. She was admitted to medical floor for further evaluation and treatment, neurology consultation and psychiatry consultation were requested Patient has a known history of Parkinson disease and is maintained on Sinemet and amantadine, she also has a known history of hypertension, vitamin D deficien cy, previous history of atrial fibrillation, history of CVA, history of GI bleed, and history of hypothyroidism. On review of systems patient is alert and oriented 3 in no apparent distress she is still complaining on and off of visual hallucinations, otherwise she denies any complaints there is no fever or chills no headache or dizziness no chest pain no shortness of breath no cough no nausea or vomiting no abdominal pain no diarrhea no blood in the stools no burning with urination no frequency or urgency and no hematuria, there is no weakness or numbness in any of the extremities, there is no change in her speech or gait Past Medical History Past Medical History: Atrial Fibrillation, CVA/TIA, Deep Vein Thrombosis (DVT), GI Bleed, Hypertension, Musculoskeletal Disorder, Neurologic Disorder, Thyroid Disorder Additional Past Medical History / Comment(s): 01/03/18 TIA, headaches, parkinsons, rectal bleed, hemorrhoids, anemia, bronchitis, sinus problems with recent sinus infection tx with antibiotics, low back pain, UTIs, diverticular disease, colon polyps-benign, R arm DVT. Left hip pain worse than right hip chronic. History of Any Multi-Drug Resistant Organisms: None Reported Past Surgical History: Cholecystectomy, Hysterectomy, Tubal Ligation Additional Past Surgical History / Comment(s): cataract surgery bilateral with lens implants, rectocele, cystocele, colonoscopies/benign polypectomies. Past Anesthesia/Blood Transfusion Reactions: No Reported Reaction Past Psychological History: No Psychological Hx Reported Additional Psychological History / Comment(s): Pt resides in a home alone. She uses no assistive device. Family checks on her routinely, daughter lives behind her. Smoking Status: Never smoker Past Alcohol Use History: None Reported Past Drug Use History: None Reported - Past Family History Mother Family Medical History: Cancer Additional Family Medical History / Comment(s): Mother of lung cancer at the age of 83 yrs. Father Additional Family Medical History / Comment(s): arthritis Medications and Allergies Home Medications Medication Instructions Recorded Confirmed Type Carbidopa/Levodopa 1 tab PO QID 10/28/14 07/24/21 History [Carbidopa-Levodopa 25-100 Tab] atenoloL [Tenormin] 25 mg PO BID 10/28/14 07/24/21 History Losartan Potassium 100 mg PO DAILY 01/03/18 07/24/21 History Clopidogrel [Plavix] 75 mg PO DAILY tab 01/05/18 07/24/21 Rx amantadine HCL [Amantadine] 100 mg PO BID 03/17/21 07/24/21 History Cholecalciferol (Vitamin D3) 125 mcg PO DAILY 07/07/21 07/24/21 History [Vitamin D3 (125 MCG = 5,000 IU)] Multivitamins, Thera [Multivitamin 1 tab PO DAILY 07/07/21 07/24/21 History (formulary)] hydroCHLOROthiazide [Hydrodiuril] 25 mg PO DAILY 07/07/21 07/24/21 History Clotrimazole/Betamethasone Dip 1 applic TOPICAL BID 07/22/21 07/24/21 History [Lotrisone Cream] [id number] 2 tab PO Q8HR PRN 07/24/21 07/24/21 History [Excedrin] Propylene Glycol/Peg 400/Pf 1 drop BOTH EYES ONCE PRN 07/24/21 07/24/21 History [Systane 0.3-0.4% Eye Drop] Allergies Allergy/AdvReac Type Severity Reaction Status Date / Time No Known Allergies Allergy Verified 07/24/21 13:54 Physical Exam Vitals: Vital Signs Temp Pulse Pulse Pulse Pulse Pulse Pulse 07/25/21 12:36 97.5 F L 49 L 49 L 51 L 07/25/21 07:53 49 L 07/25/21 04:50 99.3 F 53 L 07/24/21 19:15 98 F 67 07/24/21 16:52 60 Resp BP BP BP BP BP Pulse Ox 07/25/21 12:36 17 125/70 119/66 155/73 97 07/25/21 07:53 07/25/21 04:50 20 137/79 96 07/24/21 19:15 18 165/78 98 07/24/21 16:52 18 167/72 100 Intake and Output 07/24/21 07/25/21 07/25/21 22:59 06:59 14:59 Intake Total 200 Balance 200 Intake: Oral 200 Other: Voiding Method Toilet # Voids 1 Weight 64.41 kg In general patient is alert and oriented x 3 in no distress HEENT head normocephalic and atraumatic Neck is supple no JVD no goiter no lymphadenopathy no carotid bruit Chest examination is clear to auscultation no crackles no wheezing Cardiac exam reveals regular heart sounds S1 and S2 no gallops no murmurs Abdomen is soft nontender no organomegaly with normal bowel sounds Extremity exam reveals no edema no cyanosis or clubbing Neurological examination reveals no gross focal deficits Results CBC & Chem 7: 07/25/21 06:28 07/25/21 06:28 Labs: Abnormal Lab Results - Last 24 Hours (Table) 07/24/21 07/24/21 07/24/21 Range/Units 14:12 14:12 14:12 RBC 3.79 L (3.80-5.40) m/uL Plt Count 140 L (150-450) k/uL APTT 21.1 L (22.0-30.0) sec Chloride 110 H (98-107) mmol/L BUN 22 H (7-17) mg/dL Calcium 10.6 H (8.4-10.2) mg/dL 07/25/21 07/25/21 Range/Units 06:28 06:28 RBC 3.56 L (3.80-5.40) m/uL Plt Count 125 L (150-450) k/uL APTT (22.0-30.0) sec Chloride 108 H (98-107) mmol/L BUN 21 H (7-17) mg/dL Calcium 10.3 H (8.4-10.2) mg/dL Thrombosis Risk Factor Assmnt - Choose All That Apply Any of the Below Risk Factors Present?: Yes Each Factor Represents 1 point: Obesity (BMI >25) Other Risk Factors: Yes Each Risk Factor Represents 3 Points: Age 75 years or older, History of DVT/PE Other congenital or acquired thrombophilia - If yes, enter type in comment: No Thrombosis Risk Factor Assessment Total Risk Factor Score: 7 Thrombosis Risk Factor Assessment Level: High Risk Assessment and Plan Plan: Visual hallucinations Recent fall with head trauma, without significant acute abnormality on head CT scan in the emergency room Underlying history of hypertension Underlying history of Parkinson disease Previous history of CVA Previous history of gastrointestinal bleeding Previous history of atrial fibrillation currently patient is in normal sinus rhythm with sinus bradycardia At this time patient is admitted to medical floor Psychiatry consultation neurology consultation and ophthalmology consultation were requested Will follow closely during this admission
[2021-07-25] MEDS: LACOSAMIDE 50 MG TABLET PO SCH (21:26)
[2021-07-26 08:25] LABS: Folate, Serum 15.5 ng/mL
[2021-07-26] MEDS: CARBIDOPA-LEVODOPA 25-100 MG 1 EACH TAB PO SCH ×4 (08:51→21:00)
[2021-07-26] MEDS: CLOPIDOGREL 75 MG TAB PO SCH (08:51)
[2021-07-26] MEDS: CHOLECALCIFEROL 25 MCG (1000 IU) TABLET PO SCH (08:51)
[2021-07-26] MEDS: MULTIVITAMINS, THERA 1 EACH TAB PO SCH (08:51)
[2021-07-26] MEDS: LOSARTAN 50 MG TAB PO SCH (08:52)
[2021-07-26] MEDS: LACOSAMIDE 50 MG TABLET PO SCH ×2 (08:52→21:00)
[2021-07-26] MEDS: hydroCHLOROthiazide 25 MG TAB PO SCH (08:52)
[2021-07-26] MEDS ORDERED: CYANOCOBALAMIN 500 MCG TAB PO SCH (09:00)
--- NOTE | 2021-07-26 13:24 | P.CN ---
Psychiatric Consult - . Consult date: 07/26/21 Consult:: 07/26/21 13:23 IDENTIFYING DATA: This patient is a , retired, 81-year-old female with a significant history of Parkinson's disease who presents with acute visual hallucinations. HISTORY OF PRESENT ILLNESS: The patient presented to the hospital on 07/24/2021, brought in by her family for reported hallucinations. As per chart review, the patient sustained a fall on July 07 due to her Parkinson's disease. She sustained a head laceration and required 8 lilli. Approximately 6 days prior to her presentation in the emergency department, the patient began having hallucinations. She was noted to be seeing different patterns on the bailey, harming men outside of her house, and people inside her house walking around. She is also been noted to be seeing spiders. As per chart review, the patient has also become very paranoid because of these auditory and visual hallucinations. She is evaluated by EPS on 07/22/2021, and was informed to follow-up in the outpatient setting. The patient was evaluated by Dr. Finch who wanted the patient to have repeat scan of her head as well as a psychiatric evaluation. The patient confirms to this provider that she has been experiencing very vivid visual hallucinations including seeing bugs, people, and patterns on blank bailey. She reports this has been ongoing for the past month since she had her fall. She expresses that they have reduced significantly since her admission to the hospital. She is currently denying any other psychiatric symptoms. She reports no auditory hallucinations or paranoia. The patient reports she has heard her visual hallucinations talk to one another but never to her. She is currently denying any auditory hallucinations but states she continues to see "a few bugs. but much less than before." The patient reports no significant symptoms of a mood disorder. She denies any suicidal or homicidal ideation, intention, and/or plan. She reports no history of al or manic symptoms. Neurology has been following the patient and ordered an EEG and MRI. MRI revealed a 1 cm meningioma in the middle cranial fossa on the right medially. Vimpat was also started. PAST PSYCHIATRIC HISTORY: The patient has no reported psychiatric history. Her home medications do not include any psychotropic medications. She has no prior history of psychiatric hospitalizations. She is currently not open with any outpatient psychiatric treatment. No reported past suicide attempts. PAST MEDICAL HISTORY: Past Medical History: Atrial Fibrillation, CVA/TIA, Deep Vein Thrombosis (DVT), GI Bleed, Hypertension, Musculoskeletal Disorder, Neurologic Disorder, Thyroid Disorder Additional Past Medical History / Comment(s): 01/03/18 TIA, headaches, parkinsons, rectal bleed, hemorrhoids, anemia, bronchitis, sinus problems with recent sinus infection tx with antibiotics, low back pain, UTIs, diverticular disease, colon polyps-benign, R arm DVT. Left hip pain worse than right hip chronic. History of Any Multi-Drug Resistant Organisms: None Reported Past Surgical History: Cholecystectomy, Hysterectomy, Tubal Ligation Additional Past Surgical History / Comment(s): cataract surgery bilateral with lens implants, rectocele, cystocele, colonoscopies/benign polypectomies. Past Anesthesia/Blood Transfusion Reactions: No Reported Reaction Past Psychological History: No Psychological Hx Reported Additional Psychological History / Comment(s): Pt resides in a home alone. She uses no assistive device. Family checks on her routinely, daughter lives behind her. Smoking Status: Never smoker Past Alcohol Use History: None Reported Past Drug Use History: None Reported ALLERGIES: NO KNOWN DRUG ALLERGIES CHEMICAL DEPENDENCY HISTORY: Patient denies any significant history of substance abuse. FAMILY PSYCHIATRIC/SUBSTANCE USE HISTORY: No reported family history of psychiatric illness or substance abuse. SOCIAL HISTORY: Patient is since 2012 after being for 52 years. She has 2 living children and 1 . She is retired. 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 She denies any legal problems. She reports no substance abuse history. She reports she is Denominational. She lives on her own. She completes most of her ADLs independently but obtains groceries with the help from family or friends. MENTAL STATUS EXAM: General Appearance: Patient appears to be stated age is alert, pleasant, and cooperative. Patient appears to have fair hygiene and grooming wearing hospital gown with fair eye contact. Behavior: Patient is calmly lying in bed without any agitated behavior. Speech: Patient's speech is fluent and nonpressured. Mood/Affect: Patient reports their mood is "feeling better", affect is congruent to bright Suicidality/Homicidality: Patient denies having any suicidal or homicidal ideation intent or plan. Perceptions: Patient denies any auditory hallucinations but reports visual hallucinations. Though content/process: There is no evidence of any delusional thought content and thought process is linear and goal-directed. Memory and concentration: AOX3, grossly intact for the purposes of this session. Can spell "WORLD" backwards Judgment and insight: Fair IMPRESSIONS: Acute psychosis - improving - Patient is on vimpat from Neurology; possibly caused by meningioma as seen on MRI Rule out Lewy Body Dementia/Dementia with Lewy Bodies; Parkinson's Psychosis, Side effect from dopaminergic medications PLAN: -At this time patient DOES NOT meet criteria for inpatient psychiatric admission. Currently the patient is not presenting with any imminent risk of harm to self or others. She has been able to address her ADLs and displays good insight and judgement. Visual hallucinations do not appear to be incapacitating at this time. 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 Will hold Seroquel. Patient is displaying improvement with Vimpat. We will hold on starting an antipsychotic due to risk of cardiovascular events in elderly and polypharmacy. Should the patient require, it is recommended the patient consider Nuplazid (pimvanserin) in the outpatient setting for management of psychosis. -Recommend Neurosurgery and Neurology follow-up -Psychiatry will sign off at this point, please contact with any questions. 07/26/21 13:23
--- NOTE | 2021-07-26 13:56 | P.PN ---
Subjective Progress Note Date: 07/26/21 The patient is seen at bedside and she feels her visual hallucination is better today compared to prior. She continues to see things but is less. I started the patient on Vimpat 50mg 1 tab bid since I felt she had Right meningioma over the right temporal which I felt can cause cortical irritability. Objective - Vital Signs Vital signs: Vital Signs Temp 97.7 F 07/26/21 12:48 Pulse 74 07/26/21 12:48 Resp 16 07/26/21 12:48 BP 135/77 07/26/21 12:48 Pulse Ox 96 07/26/21 12:48 Intake & Output 07/25/21 07/26/21 07/26/21 18:59 06:59 18:59 Other: Voiding Method Toilet Toilet Toilet # Voids 1 - Exam GENERAL: The patient is lying in bed and is not in acute distress. NEUROLOGICAL: Higher mental function: The patient is awake, alert, oriented to self, place and time. Patient is following commands. No aphasia and no neglect. Cranial nerves: The pupils are round, equal and reactive to light and accommodation. Visual martin are full to confrontation throughout. Extraocular movement is intact no nystagmus is noted. Facial sensation is normal to touch throughout. The facial strength is normal throughout. Hearing is normal bilaterally to hand rub. Tongue is midline and moved [id number] without any difficulty. No dysarthria is noted. Shoulder shrug is normal bilaterally. Motor: Gait is deferred. The strength is 5 over 5 throughout. Normal tone and bulk. Cerebellum: Normal finger to nosebilaterally. Sensation: Sensation is normal to touch throughout. Reflexes (right/left): 2+ throughout uppers. Patellar are 1-2+ bilaterally and ankles are 1+ bilaterally. Plantars are downgoing bilaterally. WORK-UP: * CT of the head is reported as age-related atrophic and chronic small vessel ischemic change without acute intracranial process seen at this time. I cannot personally review the CT of the head since its unavailable to be reviewed. * EKG is reported as sinus bradycardia. Nonspecific ST and T-wave abnormality. * MRI the brain with and without is reported as age-related changes of atrophy and probable chronic small vessel ischemia. 1 cm meningioma in the middle cranial fossa on the right medially. * Routine EEG on 07/25/2021 is normal. There are no focal slowing, epileptiform discharges or seizure * Vitamin B12 level is 188 which is considered deficient (normal is 200-944). * Folate level 0 is 15.5 which is considered within normal limits * TSH is 2.0 which is within normal limits. - Labs CBC & Chem 7: 07/25/21 06:28 07/25/21 06:28 Labs: Abnormal Lab Results - Last 24 Hours (Table) 07/25/21 Range/Units 06:28 Vitamin B12 188.0 L (200.0-944.0) pg/mL Assessment and Plan Assessment: * Predominant visual hallucination around 6 days prior to presentation to the hospital. I believe her right middle cranial fossa meningioma is possibly the culprit since can cause cortical irritability leading hallucination--today she feel there is improving (was started on Vimpat) * Vitamin B12 defiency (level is 188). * Had a fall 07/07/2021 (she said was light headed). * Parkinson's disease * Hypertension Plan: * The patient was continued on her home Sinemet dose of 25-100 1 tab qid. Continue amantadine 100 mg daily ( I decreased from twice a day 2 daily and it's only in the morning since amantadine the as a stimulant and should not be used at nighttime). * Continue Vimpat 50mg 1 tab bid. * Vitamin B12 1000mcg daily was started. I gave her one time dose of 1000mcg IM today. * The patient needs to follow-up with a neurosurgeon regarding this meningioma. * Every 4 hours neuro checks * Consulted physical therapy and occupation therapy. Placed on fall precaution. * Psychiatry is consulted * Ophthalmology team is consulted. * We'll defer the rest of the medical management to the primary team. * Upon discharge, the patient needs to follow-up with her neurologist (Dr. Barber) as outpatient within 1-2 weeks. and recommend neurosurgeon follow-up The plan is discussed with the patient's nurse. There is no further neurological work-up. Gary Kincaid M.D. Neuro-hospitalist Time with Patient: Less than 30
[2021-07-26] MEDS: CYANOCOBALAMIN 1,000 MCG/ML 1 ML VIAL IM SCH (14:10)
--- NOTE | 2021-07-26 16:08 | P.PN ---
Subjective Progress Note Date: 07/26/21 Katya Rebloledo, is an 81-year-old female who presented to [facility] emergency room with a chief complaint of visual hallucinations, patient stated that she had a fall on July 07, 2021 she sustained a laceration to the right occipital area, with a large laceration , she came to emergency room and had 9 lilli placed. Patient stated that about 1 week after her fall she started having visual hallucinations, initially she started seen at times on the wall, however subsequently she started seeing spiders and [employer] men, patient started becoming fearful and paranoid because of her hallucinations, she was seen again in the emergency room and was referred to her neurologist Dr. Crump for further evaluation and treatment , however patient continued to have worse hallucinations and family decided to bring her back to emergency room for further evaluation. She was evaluated in the emergency room, vital examination on presentation revealed a temperature of 97.6 pulse 55 respirations 16 blood pressure 184/76 pulse ox 98% on room air Laboratory data revealed a white blood count of 6.6 hemoglobin 12.7 platelet count 140 sodium 140 potassium 4.1 chloride 110 CO2 23 BUN 22 creatinine 1.04 Computed tomography scan of the brain without contrast done in the emergency room revealed age-related atrophic and chronic small vessel ischemic changes without acute intracranial process. She was admitted to medical floor for further evaluation and treatment, neurology consultation and psychiatry consultation were requested Patient has a known history of Parkinson disease and is maintained on Sinemet and amantadine, she also has a known history of hypertension, vitamin D deficiency, previous history of atrial fibrillation, history of CVA, history of GI bleed, and history of hypothyroidism. On review of systems patient is alert and oriented 3 in no apparent distress she is still complaining on and off of visual hallucinations, otherwise she denies any complaints there is no fever or chills no headache or dizziness no chest pain no shortness of breath no cough no nausea or vomiting no abdominal pain no diarrhea no blood in the stools no burning with urination no frequency or urgency and no hematuria, there is no weakness or numbness in any of the extremities, there is no change in her speech or gait on 07 26 2021 patient was seen and examined on the medical floor she is alert and oriented 3 in no apparent distress she is still complaining of seen patterns when looking at the wall, however she stated that her hallucinations are much less then yesterday, she is no longer seeing spiders and soldiers, just patterns on the wall, she is not being fearful or paranoid at this time. Patient had an MRI of the brain that revealed evidence of 1 cm meningioma in the middle cranial fossa on the right along the lateral margin of the right orbit. Per neurology's this could be causing cortical irritability leading to visual hallucinations. Per neurology recommendation Vimpat 50 mg 1 by mouth twice a day was added to her medication regimen, and amantadine dose was decreased to 100 mg once daily in the morning. At this time will continue to monitor progress, and monitor response to medications, and further recommendation from neurology and psychiatry, we are still awaiting for ophthalmology input. Physical therapy were consulted, possible discharge to home in the next 1-2 days Objective - Vital Signs Vital signs: Vital Signs Temp 98.2 F 07/26/21 05:00 Pulse 56 L 07/26/21 05:00 Resp 16 07/26/21 05:00 BP 130/70 07/26/21 05:00 Pulse Ox 96 07/26/21 05:00 Intake & Output 07/25/21 07/26/21 07/26/21 18:59 06:59 18:59 Other: Voiding Method Toilet Toilet # Voids 1 - Exam In general patient is alert and oriented x 3 in no distress HEENT head normocephalic and atraumatic Neck is supple no JVD no goiter no lymphadenopathy no carotid bruit Chest examination is clear to auscultation no crackles no wheezing Cardiac exam reveals regular heart sounds S1 and S2 no gallops no murmurs Abdomen is soft nontender no organomegaly with normal bowel sounds Extremity exam reveals no edema no cyanosis or clubbing Neurological examination reveals no gross focal deficits - Labs CBC & Chem 7: 07/25/21 06:28 07/25/21 06:28 Assessment and Plan Plan: Visual hallucinations Recent fall with head trauma, without significant acute abnormality on head CT scan in the emergency room Underlying history of hypertension Underlying history of Parkinson disease Previous history of CVA Previous history of gastrointestinal bleeding Previous history of atrial fibrillation currently patient is in normal sinus rhythm with sinus bradycardia Evidence of brain meningioma, newly diagnosed on MRI done during this admission At this time patient is admitted to medical floor Then pat 50 mg by mouth twice a day was added by neurology Amantadine was decreased to 100 mg once daily by neurology Physical therapy consultation requested Vitamin B12 supplements added Psychiatry consultation neurology consultation and ophthalmology consultation were requested Will follow closely during this admission
[2021-07-26] MEDS ORDERED: QUEtiapine 25 MG TAB PO SCH (21:00)
[2021-07-27 05:10] LABS: Basophils % (A) 1 %; Eosinophils # (A) 0.2 k/uL (0-0.7); Eosinophils % (A) 3 %; HCT 36.4 % (34.0-46.0); HGB 12.5 gm/dL (11.4-16.0); Lymphocytes # (A) 1.4 k/uL (1.0-4.8); Lymphocytes % (A) 28 %; MCH 32.7 pg (25.0-35.0); MCHC 34.3 g/dL (31.0-37.0); MCV 95.4 fL (80.0-100.0); Mean Platelet Volume 9.2; Monocytes # (A) 0.4 k/uL (0-1.0); Monocytes % (A) 8 %; Neutrophils % (A) 58 %; Platelet Count 132 k/uL (150-450); RBC 3.81 m/uL (3.80-5.40); RDW 13.1 % (11.5-15.5); WBC 5.2 k/uL (3.8-10.6)
[2021-07-27 07:04] LABS: ALT <6 U/L (4-34); AST 25 U/L (14-36); African American GFR (CKD) 56 (>60 ml/min/1.73 sqM); Albumin 3.7 g/dL (3.5-5.0); Albumin/Globulin Ratio 1.3; Alkaline Phosphatase 67 U/L (38-126); Anion Gap 9 mmol/L; Blood Urea Nitrogen 23 mg/dL (7-17); Calcium 10.5 mg/dL (8.4-10.2); Carbon Dioxide 26 mmol/L (22-30); Chloride 101 mmol/L (98-107); Globulin 2.9 g/dL; Glucose 95 mg/dL (74-99); Non-African American GFR(CKD) 48 (>60 ml/min/1.73 sqM); Potassium 3.4 mmol/L (3.5-5.1); Sodium 136 mmol/L (137-145); Total Bilirubin 0.5 mg/dL (0.2-1.3); Total Protein 6.6 g/dL (6.3-8.2)
[2021-07-27] MEDS: LACOSAMIDE 50 MG TABLET PO SCH ×2 (08:53→20:56)
[2021-07-27] MEDS: LOSARTAN 50 MG TAB PO SCH (08:53)
[2021-07-27] MEDS: MULTIVITAMINS, THERA 1 EACH TAB PO SCH (08:53)
[2021-07-27] MEDS: CARBIDOPA-LEVODOPA 25-100 MG 1 EACH TAB PO SCH ×4 (08:53→20:56)
[2021-07-27] MEDS: CHOLECALCIFEROL 25 MCG (1000 IU) TABLET PO SCH (08:53)
[2021-07-27] MEDS: hydroCHLOROthiazide 25 MG TAB PO SCH (08:53)
[2021-07-27] MEDS: CLOPIDOGREL 75 MG TAB PO SCH (08:53)
[2021-07-27] MEDS: CYANOCOBALAMIN 1,000 MCG/ML 1 ML VIAL IM SCH (09:07)
[2021-07-27] MEDS ORDERED: Potassium Replacement Protocol 1 EACH MISC MISCELLANE PRN (16:08)
[2021-07-27] MEDS: POTASSIUM CHLORIDE ER 20 MEQ TAB.ER PO SCH ×2 (16:31→17:42)
--- NOTE | 2021-07-27 17:34 | P.PN ---
Subjective Progress Note Date: 07/27/21 Katya Rebolledo, is an 81-year-old female who presented to [facility] emergency room with a chief complaint of visual hallucinations, patient stated that she had a fall on July 07, 2021 she sustained a laceration to the right occipital area, with a large laceration , she came to emergency room and had 9 lilli placed. Patient stated that about 1 week after her fall she started having visual hallucinations, initially she started seen at times on the wall, however subsequently she started seeing spiders and [employer] men, patient started becoming fearful and paranoid because of her hallucinations, she was seen again in the emergency room and was referred to her neurologist Dr. Crump for further evaluation and treatment , however patient continued to have worse hallucinations and family decided to bring her back to emergency room for further evaluation. She was evaluated in the emergency room, vital examination on presentation revealed a temperature of 97.6 pulse 55 respirations 16 blood pressure 184/76 pulse ox 98% on room air Laboratory data revealed a white blood count of 6.6 hemoglobin 12.7 platelet count 140 sodium 140 potassium 4.1 chloride 110 CO2 23 BUN 22 creatinine 1.04 Computed tomography scan of the brain without contrast done in the emergency room revealed age-related atrophic and chronic small vessel ischemic changes without acute intracranial process. She was admitted to medical floor for further evaluation and treatment, neurology consultation and psychiatry consultation were requested Patient has a known history of Parkinson disease and is maintained on Sinemet and amantadine, she also has a known history of hypertension, vitamin D deficiency, previous history of atrial fibrillation, history of CVA, history of GI bleed, and history of hypothyroidism. On review of systems patient is alert and oriented 3 in no apparent distress she is still complaining on and off of visual hallucinations, otherwise she denies any complaints there is no fever or chills no headache or dizziness no chest pain no shortness of breath no cough no nausea or vomiting no abdominal pain no diarrhea no blood in the stools no burning with urination no frequency or urgency and no hematuria, there is no weakness or numbness in any of the extremities, there is no change in her speech or gait on 07/26/2021 patient was seen and examined on the medical floor she is alert and oriented 3 in no apparent distress she is still complaining of seen patterns when looking at the wall, however she stated that her hallucinations are much less then yesterday, she is no longer seeing spiders and soldiers, just patterns on the wall, she is not being fearful or paranoid at this time. Patient had an MRI of the brain that revealed evidence of 1 cm meningioma in the middle cranial fossa on the right along the lateral margin of the right orbit. Per neurology's this could be causing cortical irritability leading to visual hallucinations. Per neurology recommendation Vimpat 50 mg 1 by mouth twice a day was added to her medication regimen, and amantadine dose was decreased to 100 mg once daily in the morning. At this time will continue to monitor progress, and monitor response to medications, and further recommendation from neurology and psychiatry, we are still awaiting for ophthalmology input. Physical therapy were consulted, possible discharge to home in the next 1-2 days On 07/27/2021 Patient was seen and examined on the medical floor, he is alert and oriented x 3 in no distress, he denies any complaints there is no fever or chills no headache or dizziness no chest pain no shortness of breath no palpitation no cough no nausea or vomiting no abdominal pain no diarrhea no blood in the stools no burning with urination no frequency or urgency and no hematuria, there is no weakness or numbness in any of the extremities no change in vision speech or gait. At this time patient is feeling some improvement in her visual hallucinations, will continue with current management possible discharge to home tomorrow if stable patient will need to follow up with neurosurgery as outpatient Objective - Vital Signs Vital signs: Vital Signs Temp 97.7 F 07/27/21 13:00 Pulse 57 L 07/27/21 13:00 Resp 16 07/27/21 13:00 BP 114/71 07/27/21 13:00 Pulse Ox 96 07/27/21 13:00 Intake & Output 07/26/21 07/27/21 07/27/21 18:59 06:59 18:59 Intake Total 000 520 3979 Balance 781 420 4981 Intake: Oral 688 [id number] Other: Voiding Method Toilet Toilet Toilet # Voids 2 3 3 # Bowel Movements 1 - Exam In general patient is alert and oriented x 3 in no distress HEENT head normocephalic and atraumatic Neck is supple no JVD no goiter no lymphadenopathy no carotid bruit Chest examination is clear to auscultation no crackles no wheezing Cardiac exam reveals regular heart sounds S1 and S2 no gallops no murmurs Abdomen is soft nontender no organomegaly with normal bowel sounds Extremity exam reveals no edema no cyanosis or clubbing Neurological examination reveals no gross focal deficits - Labs CBC & Chem 7: 07/27/21 04:05 07/27/21 04:05 Labs: Abnormal Lab Results - Last 24 Hours (Table) 07/27/21 07/27/21 Range/Units 04:05 04:05 Plt Count 132 L (150-450) k/uL Sodium 136 L (137-145) mmol/L Potassium 3.4 L (3.5-5.1) mmol/L BUN 23 H (7-17) mg/dL Creatinine 1.09 H (0.52-1.04) mg/dL Calcium 10.5 H (8.4-10.2) mg/dL Assessment and Plan Plan: Visual hallucinations Recent fall with head trauma, without significant acute abnormality on head CT scan in the emergency room Underlying history of hypertension Underlying history of Parkinson disease Previous history of CVA Previous history of gastrointestinal bleeding Previous history of atrial fibrillation currently patient is in normal sinus rhythm with sinus bradycardia Evidence of brain meningioma, newly diagnosed on MRI done during this admission At this time patient is admitted to medical floor Then pat 50 mg by mouth twice a day was added by neurology Amantadine was decreased to 100 mg once daily by neurology Physical therapy consultation requested Vitamin B12 supplements added Psychiatry consultation neurology consultation and ophthalmology consultation were requested Will follow closely during this admission
[2021-07-27 19:29] VITALS: TEMP 97.6
[2021-07-28 04:47] VITALS: RESP 18
[2021-07-28 06:46] LABS: Potassium 4.1 mmol/L (3.5-5.1)
[2021-07-28] MEDS: LACOSAMIDE 50 MG TABLET PO SCH (07:48)
[2021-07-28] MEDS: LOSARTAN 50 MG TAB PO SCH (07:48)
[2021-07-28] MEDS: CARBIDOPA-LEVODOPA 25-100 MG 1 EACH TAB PO SCH (07:48)
[2021-07-28] MEDS: CHOLECALCIFEROL 25 MCG (1000 IU) TABLET PO SCH (07:48)
[2021-07-28] MEDS: CLOPIDOGREL 75 MG TAB PO SCH (07:49)
[2021-07-28] MEDS: CYANOCOBALAMIN 1,000 MCG/ML 1 ML VIAL IM SCH (07:49)
[2021-07-28] MEDS: hydroCHLOROthiazide 25 MG TAB PO SCH (07:49)
[2021-07-28] MEDS: MULTIVITAMINS, THERA 1 EACH TAB PO SCH (07:49)
[2021-07-28 07:53] VITALS: BP 132/68; PULSE 55
--- NOTE | 2021-07-28 10:18 | P.DS ---
Providers Date of admission: 07/26/21 15:56 Expected date of discharge: 07/28/21 Attending physician: Jett Gregg Consults: 07/24/21 15:34 Consult Physician Urgent Consulting Provider: Gary Kincaid Consult Reason/Comments: acute visual hallucinations s/p concussion Do you want consulting provider notified?: Yes Consult Physician Urgent Consulting Provider: Jaswinder Leonard Consult Reason/Comments: acute visual hallucinations s/p concussion Do you want consulting provider notified?: Already Contacted 07/24/21 15:35 Consult Physician Urgent Consulting Provider: Pablo Olivares Consult Reason/Comments: acute visual disturbance, right eye, s/p head injury Do you want consulting provider notified?: Yes Primary care physician: Jett Gregg [facility] Course: Discharge diagnosis Visual hallucinations Recent fall with head trauma, without significant acute abnormality on head CT scan in the emergency room Underlying history of hypertension Underlying history of Parkinson disease Previous history of CVA Previous history of gastrointestinal bleeding Previous history of atrial fibrillation currently patient is in normal sinus rhythm with sinus bradycardia Evidence of brain meningioma, newly diagnosed on MRI done during this admission. Patient started on Vimpat per neurology will need follow-up with neurosurgeon outpatient Hospital course Katya Rebolledo, is an 81-year-old female who presented to [facility] emergency room with a chief complaint of visual hallucinations, patient stated that she had a fall on July 07, 2021 she sustained a laceration to the right occipital area, with a large laceration , she came to emergency room and had 9 lilli placed. Patient stated that about 1 week after her fall she started having visual hallucinations, initially she started seen at times on the wall, however subsequently she started seeing spiders and [employer] men, patient started becoming fearful and paranoid because of her hallucinations, she was seen again in the emergency room and was referred to her neurologist Dr. Crump for further evaluation and treatment , however patient continued to have worse hallucinations and family decided to bring her back to emergency room for further evaluation. She was evaluated in the emergency room, vital examination on presentation revealed a temperature of 97.6 pulse 55 respirations 16 blood pressure 184/76 pulse ox 98% on room air Laboratory data revealed a white blood count of 6.6 hemoglobin 12.7 platelet count 140 sodium 140 potassium 4.1 chloride 110 CO2 23 BUN 22 creatinine 1.04 Computed tomography scan of the brain without contrast done in the emergency room revealed age-related atrophic and chronic small vessel ischemic changes without acute intracranial process. She was admitted to medical floor for further evaluation and treatment, neurology consultation and psychiatry consultation were requested Patient has a known history of Parkinson disease and is maintained on Sinemet and amantadine, she also has a known history of hypertension, vitamin D deficiency, previous history of atrial fibrillation, history of CVA, history of GI bleed, and history of hypothyroidism. On review of systems patient is alert and oriented 3 in no apparent distress she is still complaining on and off of visual hallucinations, otherwise she denies any complaints there is no fever or chills no headache or dizziness no chest pain no shortness of breath no cough no nausea or vomiting no abdominal pain no diarrhea no blood in the stools no burning with urination no frequency or urgency and no hematuria, there is no weakness or numbness in any of the extremities, there is no change in her speech or gait on 07/26/2021 patient was seen and examined on the medical floor she is alert and oriented 3 in no apparent distress she is still complaining of seen patterns when looking at the wall, however she stated that her hallucinations are much less then yesterday, she is no longer seeing spiders and soldiers, just patterns on the wall, she is not being fearful or paranoid at this time. Patient had an MRI of the brain that revealed evidence of 1 cm meningioma in the middle cranial fossa on the right along the lateral margin of the right orbit. Per neurology's this could be causing cortical irritability leading to visual hallucinations. Per neurology recommendation Vimpat 50 mg 1 by mouth twice a day was added to her medication regimen, and amantadine dose was decreased to 100 mg once daily in the morning. At this time will continue to monitor progress, and monitor response to medications, and further recommendation from neurology and psychiatry, we are still awaiting for ophthalmology input. Physical therapy were consulted, possible discharge to home in the next 1-2 days On 07/27/2021 Patient was seen and examined on the medical floor, he is alert and oriented x 3 in no distress, he denies any complaints there is no fever or chills no headache or dizziness no chest pain no shortness of breath no palpitation no cough no nausea or vomiting no abdominal pain no diarrhea no blood in the stools no burning with urination no frequency or urgency and no hematuria, there is no weakness or numbness in any of the extremities no change in vision speech or gait. At this time patient is feeling some improvement in her visual hallucinations, will continue with current management possible discharge to home tomorrow if stable patient will need to follow up with neurosurgery as outpatient On 07/28/2021 patient is alert and oriented 3. Patient has been cleared for discharge from neurology services patient will need close follow-up with neurologist and neurosurgeon for further management. Patient was started on the Pap 50 mg twice a day and patient's Amantadine decreased to daily. At this time patient denies chest pain or shortness of breath. Patient denies nausea vomiting or diarrhea. Patient denies any urinary burning or frequency. Patient was also evaluated by psychiatry services and cleared for discharge. Patient reports improvement with visual hallucinations. Patient Condition at Discharge: Stable Plan - Discharge Summary Discharge Rx Participant: Yes New Discharge Prescriptions: New atenoloL [Tenormin] 12.5 mg PO BID 30 Days #60 dose Continue Carbidopa/Levodopa [Carbidopa-Levodopa 25-100 Tab] 1 tab PO QID Losartan Potassium 100 mg PO DAILY Clopidogrel [Plavix] 75 mg PO DAILY tab amantadine HCL [Amantadine] 100 mg PO BID Cholecalciferol (Vitamin D3) [Vitamin D3 (125 MCG = 5,000 IU)] 125 mcg PO DAILY hydroCHLOROthiazide [Hydrodiuril] 25 mg PO DAILY Multivitamins, Thera [Multivitamin (formulary)] 1 tab PO DAILY Clotrimazole/Betamethasone Dip [Lotrisone Cream] 1 applic TOPICAL BID Propylene Glycol/Peg 400/Pf [Systane 0.3-0.4% Eye Drop] 1 drop BOTH EYES ONCE PRN PRN Reason: Dry Eye(S) Discontinued atenoloL [Tenormin] 25 mg PO BID [id number] [Excedrin] 2 tab PO Q8HR PRN PRN Reason: Pain Control Discharge Medication List Carbidopa/Levodopa [Carbidopa-Levodopa 25-100 Tab] 1 tab PO QID 10/28/14 [History] Losartan Potassium 100 mg PO DAILY 01/03/18 [History] Clopidogrel [Plavix] 75 mg PO DAILY tab 01/05/18 [Rx] amantadine HCL [Amantadine] 100 mg PO BID 03/17/21 [History] Cholecalciferol (Vitamin D3) [Vitamin D3 (125 MCG = 5,000 IU)] 125 mcg PO DAILY 07/07/21 [History] Multivitamins, Thera [Multivitamin (formulary)] 1 tab PO DAILY 07/07/21 [History] hydroCHLOROthiazide [Hydrodiuril] 25 mg PO DAILY 07/07/21 [History] Clotrimazole/Betamethasone Dip [Lotrisone Cream] 1 applic TOPICAL BID 07/22/21 [History] Propylene Glycol/Peg 400/Pf [Systane 0.3-0.4% Eye Drop] 1 drop BOTH EYES ONCE PRN 07/24/21 [History] atenoloL [Tenormin] 12.5 mg PO BID 30 Days #60 dose 07/28/21 [Rx] Follow up Appointment(s)/Referral(s): Arnav Barber MD [REFERRING] - 1 Week Jett Gregg MD [Primary Care Provider] - 1-2 days Activity/Diet/Wound Care/Special Instructions: Patient will need follow-up with neurosurgeon outpatient Activity as tolerated Diet heart healthy
== END 2021-07-28 13:09 | disposition home health service (06) | DRG 55 ==
LOC: EC 10:50 → 5NMEDONC 15:33 → OBSVTOIN 07-26 15:56
PROVIDERS: ADMIT Internal Medicine; ATTEND Internal Medicine
DX: D32.0 Benign neoplasm of cerebral meninges (principal); R44.1 Visual hallucinations; E03.9 Hypothyroidism, unspecified; G20 Parkinson's disease; I10 Essential (primary) hypertension; I48.91 Unspecified atrial fibrillation; Z79.02 Long term (current) use of antithrombotics/antiplatelets; Z79.899 Other long term (current) drug therapy; Z80.1 Family history of malignant neoplasm of trachea, bronchus and lung; Z86.718 Personal history of other venous thrombosis and embolism; Z86.73 Personal history of transient ischemic attack (TIA), and cerebral infarction without residual deficits; Z86.010 Personal history of colon polyps; Z90.710 Acquired absence of both cervix and uterus; Z96.1 Presence of intraocular lens; R00.1 Bradycardia, unspecified; Z20.822 Contact with and (suspected) exposure to COVID-19
CPT/HCPCS: 36415; 70450; 70553; 80048; 80053; 80306; 81003; 82550; 82607; 82746; 83735; 84132; 84443; 85025; 85610; 85730; 87635; 93005; 95816; 99285

== ENCOUNTER 2021-08-04 16:06 | Inpatient (IN) | payer MEDICARE, BC ==
[2021-08-04 17:04] LABS: Basophils % (A) 1 %; Eosinophils # (A) 0.1 k/uL (0-0.7); Eosinophils % (A) 2 %; HCT 34.5 % (34.0-46.0); HGB 11.6 gm/dL (11.4-16.0); Lymphocytes # (A) 1.2 k/uL (1.0-4.8); Lymphocytes % (A) 22 %; MCH 32.4 pg (25.0-35.0); MCHC 33.8 g/dL (31.0-37.0); Mean Platelet Volume 9.4; Monocytes # (A) 0.4 k/uL (0-1.0); Monocytes % (A) 7 %; Neutrophils # (A) 3.5 k/uL (1.3-7.7); Neutrophils % (A) 66 %; Platelet Count 193 k/uL (150-450); RBC 3.59 m/uL (3.80-5.40); RDW 12.4 % (11.5-15.5); WBC 5.3 k/uL (3.8-10.6)
[2021-08-04 17:18] LABS: Albumin 3.6 g/dL (3.5-5.0); Calcium 10.3 mg/dL (8.4-10.2); Potassium 3.6 mmol/L (3.5-5.1); Total Bilirubin 0.6 mg/dL (0.2-1.3); Total Protein 6.7 g/dL (6.3-8.2)
[2021-08-04 17:20] LABS: INR 0.9 (<1.2); Prothrombin Time 9.9 sec (9.0-12.0)
[2021-08-04 17:22] LABS: Partial Thromboplastin Time 19.5 sec (22.0-30.0)
--- NOTE | 2021-08-04 18:20 | XR ---
EXAMINATION TYPE: XR chest 2V DATE OF EXAM: 08/04/2021 COMPARISON: Radiograph 07/07/2021 HISTORY: Syncope TECHNIQUE: Frontal and lateral views of the chest are obtained. FINDINGS: There is no focal air space opacity, pleural effusion, or pneumothorax seen. There is left atrial enlargement similar to prior best seen on lateral view.. The osseous structures are intact. IMPRESSION: Left atrial enlargement similar to prior. No acute process.
--- NOTE | 2021-08-04 18:45 | ED ---
General Adult HPI - General Chief complaint: Syncope Stated complaint: syncope Time Seen by Provider: 08/04/21 16:15 Source: patient, EMS Mode of arrival: EMS Limitations: physical limitation - History of Present Illness Initial comments: 81-year-old female with past history of A. fib, CVA, Parkinson's disease who presents emergency room after a suspected syncopal episode. Daughter is at bedside and provides the history. States that her mother has been staying with her as she has had multiple hospitalizations in the past several weeks. The patient used the restroom and then was placed on her walker to dry her hands. Daughter states that she walked out of the room. She was only gone a few seconds. When she returned she found that her mother had gone unconscious and her eyes were back in her head. There was no seizure-like activity. Patient was non-verbal at the time. She did move her onto the floor. The patient looked as if she was given have an episode of emesis and therefore she did roll her to her side. The patient did begin vomiting. She was slow to resume consciousness. EMS arrived to the house and the patient does remember them at this time. She was given Zofran en route to the hospital with improvement in her nausea. She arrives and states that he for the episode she felt extremely hot as if she was going to pass out. She denies any chest pain or shortness of breath. No history of seizures. Patient recently placed on Vimpat for hallucinations after a head injury. States that hallucinations have resolved at this time. 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 or precipitating factors - Related Data Home Medications Medication Instructions Recorded Confirmed Carbidopa/Levodopa 1 tab PO QID 10/28/14 08/04/21 [Carbidopa-Levodopa 25-100 Tab] Cholecalciferol (Vitamin D3) 125 mcg PO DAILY 07/07/21 08/04/21 [Vitamin D3 (125 MCG = 5,000 IU)] Multivitamins, Thera [Multivitamin 1 tab PO DAILY 07/07/21 08/04/21 (formulary)] Clotrimazole/Betamethasone Dip 1 applic TOPICAL BID 07/22/21 08/04/21 [Lotrisone Cream] Propylene Glycol/Peg 400/Pf 1 drop BOTH EYES ONCE PRN 07/24/21 08/04/21 [Systane 0.3-0.4% Eye Drop] Previous Rx's Medication Instructions Recorded Clopidogrel [Plavix] 75 mg PO DAILY tab 01/05/18 Cyanocobalamin (Vitamin B-12) 1,000 mcg PO DAILY 30 Days #30 07/28/21 [Vitamin B-12] tablet Lacosamide [Vimpat] 50 mg PO BID 30 Days #60 tablet 07/28/21 amantadine HCL [Symmetrel] 100 mg PO DAILY 30 Days #30 cap 07/28/21 atenoloL [Tenormin] 12.5 mg PO BID 30 Days #60 dose 07/28/21 Losartan [Cozaar] 50 mg PO DAILY 30 Days #30 tab 08/08/21 Allergies Allergy/AdvReac Type Severity Reaction Status Date / Time No Known Allergies Allergy Verified 08/04/21 17:30 Review of Systems ROS Statement: Those systems with pertinent positive or pertinent negative responses have been documented in the HPI. ROS Other: All systems not noted in ROS Statement are negative. Past Medical History Past Medical History: Atrial Fibrillation, CVA/TIA, Deep Vein Thrombosis (DVT), GI Bleed, Hypertension, Musculoskeletal Disorder, Neurologic Disorder, Thyroid Disorder Additional Past Medical History / Comment(s): 01/03/18 TIA, headaches, parkinsons, rectal bleed, hemorrhoids, anemia, bronchitis, sinus problems with recent sinus infection tx with antibiotics, low back pain, UTIs, diverticular disease, colon polyps-benign, R arm DVT. Left hip pain worse than right hip chronic. History of Any Multi-Drug Resistant Organisms: None Reported Past Surgical History: Cholecystectomy, Hysterectomy, Tubal Ligation Additional Past Surgical History / Comment(s): cataract surgery bilateral with lens implants, rectocele, cystocele, colonoscopies/benign polypectomies. Past Anesthesia/Blood Transfusion Reactions: No Reported Reaction Past Psychological History: No Psychological Hx Reported Smoking Status: Never smoker Past Alcohol Use History: None Reported Past Drug Use History: None Reported - Past Family History Mother Family Medical History: Cancer Additional Family Medical History / Comment(s): Mother of lung cancer at the age of 83 yrs. Father Additional Family Medical History / Comment(s): arthritis General Exam Limitations: physical limitation General appearance: alert, in no apparent distress Head exam: Present: atraumatic, normocephalic, normal inspection Eye exam: Present: normal appearance, PERRL, EOMI. Absent: scleral icterus, conjunctival injection, periorbital swelling ENT exam: Present: normal exam, mucous membranes moist Neck exam: Present: normal inspection. Absent: tenderness, meningismus, lymphadenopathy Respiratory exam: Present: normal lung sounds bilaterally. Absent: respiratory distress, wheezes, rales, rhonchi, stridor Cardiovascular Exam: Present: regular rate, normal rhythm, normal heart sounds. Absent: systolic murmur, diastolic murmur, rubs, gallop, clicks GI/Abdominal exam: Present: soft, normal bowel sounds. Absent: distended, tenderness, guarding, rebound, rigid Extremities exam: Present: normal inspection, full ROM, normal capillary refill. Absent: tenderness, pedal edema, joint swelling, calf tenderness Back exam: Present: normal inspection Neurological exam: Present: alert, oriented X3, CN II-XII intact Psychiatric exam: Present: normal affect, normal mood Skin exam: Present: warm, dry, intact, normal color. Absent: rash Course Vital Signs 08/04/21 08/04/21 08/04/21 16:13 18:41 20:00 Temperature 98.1 F Pulse Rate 64 69 67 Respiratory 20 20 18 Rate Blood Pressure 117/77 143/60 148/70 O2 Sat by Pulse 98 99 95 Oximetry EKG Findings - EKG Comments: EKG Findings:: EKG demonstrates a normal sinus rhythm with a ventricular rate of 60. WI interval 136. QRS 84. QTC of 346. No acute ST segment elevations or depressions. Baseline artifact Medical Decision Making - Medical Decision Making Upon arrival patient was placed into room 4. A thorough history and physical exam is performed. Patient placed on continuous pulse ox and cardiac monitoring. 12-lead EKG was performed. Laboratory studies were conducted and the patient went for a chest x-ray. Patient's laboratory studies are reviewed and troponin is negative. Chest x-ray demonstrates no acute process. There is left atrial enlargement which was seen on previous exam. I did discuss the diagnosis, differential treatment options. There is consideration that the patient may have had a vasovagal episode as she recently had a bowel movement however I did recommend admission for overnight observation. Daughter is at bedside and agrees to this plan. Patient also agrees. Spoke with Dr. Gregg who agreed to the plan. Patient is currently awaiting a bed on the floor - Lab Data Result diagrams: 08/06/21 05:54 08/06/21 05:54 Lab Results 08/04/21 08/04/21 08/04/21 Range/Units 16:54 16:54 16:54 WBC 5.3 (3.8-10.6) k/uL RBC 3.59 L (3.80-5.40) m/uL Hgb 11.6 (11.4-16.0) gm/dL Hct 34.5 (34.0-46.0) % MCV 96.0 (80.0-100.0) fL MCH 32.4 (25.0-35.0) pg MCHC 33.8 (31.0-37.0) g/dL RDW 12.4 (11.5-15.5) % Plt Count 193 (150-450) k/uL MPV 9.4 Immature Gran % (Auto) % Absolute Nucleated RBC (0.00-0.00) X 10*3/uL Neutrophils % 66 % Lymphocytes % 22 % Monocytes % 7 % Eosinophils % 2 % Basophils % 1 % Immature Gran # (0.00-0.04) X 10*3/uL Neutrophils # 3.5 (1.3-7.7) k/uL Lymphocytes # 1.2 (1.0-4.8) k/uL Monocytes # 0.4 (0-1.0) k/uL Eosinophils # 0.1 (0-0.7) k/uL Basophils # 0.0 (0-0.2) k/uL NRBC/100 WBC Diff (0.0-0.0) /100 WBCS PT 9.9 (9.0-12.0) sec INR 0.9 (<1.2) APTT 19.5 L (22.0-30.0) sec Sodium 136 L (137-145) mmol/L Potassium 3.6 (3.5-5.1) mmol/L Chloride 103 (98-107) mmol/L Carbon Dioxide 22 (22-30) mmol/L Anion Gap 11 mmol/L BUN 24 H (7-17) mg/dL Creatinine 0.97 (0.52-1.04) mg/dL Est GFR (CKD-EPI)AfAm 64 (>60 ml/min/1.73 sqM) Est GFR (CKD-EPI)NonAf 56 (>60 ml/min/1.73 sqM) BUN/Creatinine Ratio (12.00-20.00) Ratio Glucose 126 H (74-99) mg/dL Calcium 10.3 H (8.4-10.2) mg/dL Total Bilirubin 0.6 (0.2-1.3) mg/dL AST 22 (14-36) U/L ALT 7 (4-34) U/L Alkaline Phosphatase 66 (38-126) U/L Troponin I (0.000-0.034) ng/mL Total Protein 6.7 (6.3-8.2) g/dL Albumin 3.6 (3.5-5.0) g/dL Globulin (1.6-3.3) g/dL Albumin/Globulin Ratio (1.60-3.17) g/dL Coronavirus (PCR) (Not Detectd) 08/04/21 08/04/21 08/04/21 Range/Units 16:54 19:22 21:27 WBC (3.8-10.6) k/uL RBC (3.80-5.40) m/uL Hgb (11.4-16.0) gm/dL Hct (34.0-46.0) % MCV (80.0-100.0) fL MCH (25.0-35.0) pg MCHC (31.0-37.0) g/dL RDW (11.5-15.5) % Plt Count (150-450) k/uL MPV Immature Gran % (Auto) % Absolute Nucleated RBC (0.00-0.00) X 10*3/uL Neutrophils % % Lymphocytes % % Monocytes % % Eosinophils % % Basophils % % Immature Gran # (0.00-0.04) X 10*3/uL Neutrophils # (1.3-7.7) k/uL Lymphocytes # (1.0-4.8) k/uL Monocytes # (0-1.0) k/uL Eosinophils # (0-0.7) k/uL Basophils # (0-0.2) k/uL NRBC/100 WBC Diff (0.0-0.0) /100 WBCS PT (9.0-12.0) sec INR (<1.2) APTT (22.0-30.0) sec Sodium (137-145) mmol/L Potassium (3.5-5.1) mmol/L Chloride (98-107) mmol/L Carbon Dioxide (22-30) mmol/L Anion Gap mmol/L BUN (7-17) mg/dL Creatinine (0.52-1.04) mg/dL Est GFR (CKD-EPI)AfAm (>60 ml/min/1.73 sqM) Est GFR (CKD-EPI)NonAf (>60 ml/min/1.73 sqM) BUN/Creatinine Ratio (12.00-20.00) Ratio Glucose (74-99) mg/dL Calcium (8.4-10.2) mg/dL Total Bilirubin (0.2-1.3) mg/dL AST (14-36) U/L ALT (4-34) U/L Alkaline Phosphatase (38-126) U/L Troponin I <0.012 <0.012 (0.000-0.034) ng/mL Total Protein (6.3-8.2) g/dL Albumin (3.5-5.0) g/dL Globulin (1.6-3.3) g/dL Albumin/Globulin Ratio (1.60-3.17) g/dL Coronavirus (PCR) Not Detected (Not Detectd) 08/05/21 08/05/21 08/05/21 Range/Units 00:56 06:27 06:27 WBC 4.69 (3.8-10.6) k/uL RBC 3.33 L (3.80-5.40) m/uL Hgb 10.5 L (11.4-16.0) gm/dL Hct 31.8 L (34.0-46.0) % MCV 95.5 (80.0-100.0) fL MCH 31.5 (25.0-35.0) pg MCHC 33.0 (31.0-37.0) g/dL RDW 12.5 (11.5-15.5) % Plt Count 173 (150-450) k/uL MPV 11.6 Immature Gran % (Auto) 0.4 % Absolute Nucleated RBC 0 (0.00-0.00) X 10*3/uL Neutrophils % 56.8 % Lymphocytes % 27.9 % Monocytes % 11.7 % Eosinophils % 2.3 % Basophils % 0.9 % Immature Gran # 0.02 (0.00-0.04) X 10*3/uL Neutrophils # 2.66 (1.3-7.7) k/uL Lymphocytes # 1.31 (1.0-4.8) k/uL Monocytes # 0.55 (0-1.0) k/uL Eosinophils # 0.11 (0-0.7) k/uL Basophils # 0.04 (0-0.2) k/uL NRBC/100 WBC Diff 0 (0.0-0.0) /100 WBCS PT (9.0-12.0) sec INR (<1.2) APTT (22.0-30.0) sec Sodium 141 (137-145) mmol/L Potassium 3.5 (3.5-5.1) mmol/L Chloride 104 (98-107) mmol/L Carbon Dioxide 27.6 (22-30) mmol/L Anion Gap 9.40 mmol/L BUN 23.0 (7-17) mg/dL Creatinine 0.9 (0.52-1.04) mg/dL Est GFR (CKD-EPI)AfAm 70.0 (>60 ml/min/1.73 sqM) Est GFR (CKD-EPI)NonAf 60.4 (>60 ml/min/1.73 sqM) BUN/Creatinine Ratio 25.56 H (12.00-20.00) Ratio Glucose 90 (74-99) mg/dL Calcium 9.7 (8.4-10.2) mg/dL Total Bilirubin (0.2-1.3) mg/dL AST (14-36) U/L ALT (4-34) U/L Alkaline Phosphatase (38-126) U/L Troponin I <0.012 (0.000-0.034) ng/mL Total Protein (6.3-8.2) g/dL Albumin (3.5-5.0) g/dL Globulin (1.6-3.3) g/dL Albumin/Globulin Ratio (1.60-3.17) g/dL Coronavirus (PCR) (Not Detectd) 08/06/21 08/06/21 Range/Units 05:54 05:54 WBC 5.10 (3.8-10.6) k/uL RBC 3.60 L (3.80-5.40) m/uL Hgb 11.1 L (11.4-16.0) gm/dL Hct 34.1 L (34.0-46.0) % MCV 94.7 (80.0-100.0) fL MCH 30.8 (25.0-35.0) pg MCHC 32.6 (31.0-37.0) g/dL RDW 12.4 (11.5-15.5) % Plt Count 185 (150-450) k/uL MPV 11.8 Immature Gran % (Auto) 0.6 % Absolute Nucleated RBC 0 (0.00-0.00) X 10*3/uL Neutrophils % 57.6 % Lymphocytes % 26.9 % Monocytes % 11.6 % Eosinophils % 2.7 % Basophils % 0.6 % Immature Gran # 0.03 (0.00-0.04) X 10*3/uL Neutrophils # 2.94 (1.3-7.7) k/uL Lymphocytes # 1.37 (1.0-4.8) k/uL Monocytes # 0.59 (0-1.0) k/uL Eosinophils # 0.14 (0-0.7) k/uL Basophils # 0.03 (0-0.2) k/uL NRBC/100 WBC Diff 0 (0.0-0.0) /100 WBCS PT (9.0-12.0) sec INR (<1.2) APTT (22.0-30.0) sec Sodium 141 (137-145) mmol/L Potassium 3.6 (3.5-5.1) mmol/L Chloride 103 (98-107) mmol/L Carbon Dioxide 32.7 H (22-30) mmol/L Anion Gap 5.30 mmol/L BUN 19.0 (7-17) mg/dL Creatinine 1.1 (0.52-1.04) mg/dL Est GFR (CKD-EPI)AfAm 54.9 L (>60 ml/min/1.73 sqM) Est GFR (CKD-EPI)NonAf 47.4 L (>60 ml/min/1.73 sqM) BUN/Creatinine Ratio 17.27 (12.00-20.00) Ratio Glucose 101 (74-99) mg/dL Calcium 10.1 (8.4-10.2) mg/dL Total Bilirubin 0.3 (0.2-1.3) mg/dL AST 13 (14-36) U/L ALT <8 L (4-34) U/L Alkaline Phosphatase 57 (38-126) U/L Troponin I (0.000-0.034) ng/mL Total Protein 6.2 (6.3-8.2) g/dL Albumin 3.90 (3.5-5.0) g/dL Globulin 2.3 (1.6-3.3) g/dL Albumin/Globulin Ratio 1.70 (1.60-3.17) g/dL Coronavirus (PCR) (Not Detectd) Disposition Clinical Impression: Syncope Disposition: ADMITTED IP TO THIS [facility] Condition: Stable Is patient prescribed a controlled substance at d/c from ED?: No Decision to Admit Reason: Admit from EC Decision Date: 08/04/21 Decision Time: 18:45
[2021-08-04] MEDS ORDERED: NALOXONE 0.4 MG/ML 1 ML VIAL IV PRN (18:46)
[2021-08-04] MEDS ORDERED: ARTIFICIAL TEARS-HYPROMELLOSE DROPS 15 ML BTL BOTH EYES PRN (23:11)
[2021-08-04] MEDS: LACOSAMIDE 50 MG TABLET PO SCH (23:51)
[2021-08-04] MEDS: CARBIDOPA-LEVODOPA 25-100 MG 1 EACH TAB PO SCH (23:51)
[2021-08-05 09:27] LABS: Basophils # (A) 0.04 X 10*3/uL (0.00-0.10); Basophils % (A) 0.9 %; Eosinophils # (A) 0.11 X 10*3/uL (0.04-0.35); Eosinophils % (A) 2.3 %; HCT 31.8 % (37.2-46.3); HGB 10.5 g/dL (12.0-15.0); Lymphocytes # (A) 1.31 X 10*3/uL (0.90-5.00); Lymphocytes % (A) 27.9 %; MCH 31.5 pg (27.0-32.0); MCV 95.5 fL (80.0-97.0); Mean Platelet Volume 11.6 fL (9.5-12.2); Monocytes # (A) 0.55 X 10*3/uL (0.20-1.00); Monocytes % (A) 11.7 %; Neutrophils # (A) 2.66 X 10*3/uL (1.80-7.70); Neutrophils % (A) 56.8 %; Platelet Count 173 X 10*3/uL (140-440); RBC 3.33 X 10*6/uL (4.10-5.20); RDW 12.5 % (11.5-14.5); WBC 4.69 X 10*3/uL (4.50-10.00)
--- NOTE | 2021-08-05 09:46 | P.CRDCN ---
History of Present Illness Consult date: 08/05/21 History of present illness: This is a 81-year-old female with history of parkinsonism, hypertension and paroxysmal atrial fibrillation being followed by me in the office. She is brought into the hospital by the daughter with complaints of syncope. Apparently she was in the bathroom when this happened. She had a bowel movement and was drying her hands sitting on the seat of the walker. She felt hot all over the body. She started unzip her robe and subsequent a she couldn't remember. Apparently her daughter who left her for a few seconds came back and found that her mother was unresponsive with a glassy look. She was put down on the floor and the paramedics were called in. Apparently she got nauseated and started vomiting. She was subsequently brought to the hospital. She denied any chest pain, shortness of breath or palpitations. No seizure-like activity. No loss of bladder or bowel control it so far. Her EKG did not reveal any acute changes. Cardiac enzymes are negative. Blood work is normal except mild anemia. We'll check her blood pressure for any postural changes. If no postural changes are noted, patient could be discharged home with event monitor. Review of Systems As per the chart Past Medical History Past Medical History: Atrial Fibrillation, CVA/TIA, Deep Vein Thrombosis (DVT), GI Bleed, Hypertension, Musculoskeletal Disorder, Neurologic Disorder, Thyroid Disorder Additional Past Medical History / Comment(s): 01/03/18 TIA, headaches, parkinsons, rectal bleed, hemorrhoids, anemia, bronchitis, sinus problems with recent sinus infection tx with antibiotics, low back pain, UTIs, diverticular disease, colon polyps-benign, R arm DVT. Left hip pain worse than right hip chronic. History of Any Multi-Drug Resistant Organisms: None Reported Past Surgical History: Cholecystectomy, Hysterectomy, Tubal Ligation Additional Past Surgical History / Comment(s): cataract surgery bilateral with lens implants, rectocele, cystocele, colonoscopies/benign polypectomies. Past Anesthesia/Blood Transfusion Reactions: No Reported Reaction Past Psychological History: No Psychological Hx Reported Smoking Status: Never smoker Past Alcohol Use History: None Reported Past Drug Use History: None Reported - Past Family History Mother Family Medical History: Cancer Additional Family Medical History / Comment(s): Mother of lung cancer at the age of 83 yrs. Father Additional Family Medical History / Comment(s): arthritis Medications and Allergies Home Medications Medication Instructions Recorded Confirmed Type Carbidopa/Levodopa 1 tab PO QID 10/28/14 08/04/21 History [Carbidopa-Levodopa 25-100 Tab] Losartan Potassium 100 mg PO DAILY 01/03/18 08/04/21 History Clopidogrel [Plavix] 75 mg PO DAILY tab 01/05/18 08/04/21 Rx Cholecalciferol (Vitamin D3) 125 mcg PO DAILY 07/07/21 08/04/21 History [Vitamin D3 (125 MCG = 5,000 IU)] Multivitamins, Thera [Multivitamin 1 tab PO DAILY 07/07/21 08/04/21 History (formulary)] hydroCHLOROthiazide [Hydrodiuril] 25 mg PO DAILY 07/07/21 08/04/21 History Clotrimazole/Betamethasone Dip 1 applic TOPICAL BID 07/22/21 08/04/21 History [Lotrisone Cream] Propylene Glycol/Peg 400/Pf 1 drop BOTH EYES ONCE PRN 07/24/21 08/04/21 History [Systane 0.3-0.4% Eye Drop] Cyanocobalamin (Vitamin B-12) 1,000 mcg PO DAILY 30 Days #30 07/28/21 08/04/21 Rx [Vitamin B-12] tablet Lacosamide [Vimpat] 50 mg PO BID 30 Days #60 tablet 07/28/21 08/04/21 Rx amantadine HCL [Symmetrel] 100 mg PO DAILY 30 Days #30 cap 07/28/21 08/04/21 Rx atenoloL [Tenormin] 12.5 mg PO BID 30 Days #60 dose 07/28/21 08/04/21 Rx Allergies Allergy/AdvReac Type Severity Reaction Status Date / Time No Known Allergies Allergy Verified 08/04/21 17:30 Physical Exam Vitals: Vital Signs Temp Pulse Pulse Resp BP BP Pulse Ox 08/05/21 07:00 98.5 F 60 18 130/63 95 08/05/21 02:23 98.1 F 62 16 117/62 95 08/04/21 21:07 97.9 F 85 16 164/67 98 08/04/21 20:00 67 18 148/70 95 08/04/21 18:41 69 20 143/60 99 08/04/21 16:13 98.1 F 64 20 117/77 98 Intake and Output 08/04/21 08/05/21 08/05/21 22:59 06:59 14:59 Output Total 200 Balance -200 Output: Urine 200 Other: Voiding Method Bedside Commode # Voids 1 1 Weight 63.049 kg GENERAL EXAM: Patient is alert and oriented and doesn't appear to be in any acute distress HEENT: Normocephalic. Normal reaction of pupils, equal size, normal range of extraocular motion. No erythema or exudates in the throat. NECK: No masses, no nuchal rigidity. CHEST: No chest wall deformity. LUNGS: Equal air entry with no crackles or wheeze. HEART: S1 and S2 normal with no audible mumurs or gallops. Regular rhythm, femorals equal on both sides.. ABDOMEN: No hepatosplenomegaly, normal bowel sounds, no guarding or rigidity. SKIN: No rashes CENTRAL NERVOUS SYSTEM: No focal deficits. EXTREMITIES: No cyanosis, clubbing or edema. Results 08/05/21 06:27 08/04/21 16:54 Cardiac Enzymes 08/04/21 08/04/21 08/04/21 Range/Units 16:54 16:54 21:27 AST 22 (14-36) U/L Troponin I <0.012 <0.012 (0.000-0.034) ng/mL 08/05/21 Range/Units 00:56 AST (14-36) U/L Troponin I <0.012 (0.000-0.034) ng/mL Coagulation 08/04/21 Range/Units 16:54 PT 9.9 (9.0-12.0) sec APTT 19.5 L (22.0-30.0) sec CBC 08/04/21 08/05/21 Range/Units 16:54 06:27 WBC 5.3 4.69 (3.8-10.6) k/uL RBC 3.59 L 3.33 L (3.80-5.40) m/uL Hgb 11.6 10.5 L (11.4-16.0) gm/dL Hct 34.5 31.8 L (34.0-46.0) % Plt Count 193 173 (150-450) k/uL Comprehensive Metabolic Panel 08/04/21 Range/Units 16:54 Sodium 136 L (137-145) mmol/L Potassium 3.6 (3.5-5.1) mmol/L Chloride 103 (98-107) mmol/L Carbon Dioxide 22 (22-30) mmol/L BUN 24 H (7-17) mg/dL Creatinine 0.97 (0.52-1.04) mg/dL Glucose 126 H (74-99) mg/dL Calcium 10.3 H (8.4-10.2) mg/dL AST 22 (14-36) U/L ALT 7 (4-34) U/L Alkaline Phosphatase 66 (38-126) U/L Total Protein 6.7 (6.3-8.2) g/dL Albumin 3.6 (3.5-5.0) g/dL Current Medications Generic Name Dose Route Start Last Admin Trade Name Freq PRN Reason Stop Dose Admin Amantadine HCl 100 mg 08/05/21 09:00 Amantadine Hcl 100 Mg Cap PO DAILY LEANDRO Artificial Tears 1 drops 08/04/21 23:11 Artificial Tears-Hypromellose Drops 15 Ml Btl BOTH EYES ONCE PRN Dry Eye(s) Atenolol 12.5 mg 08/04/21 23:15 08/04/21 23:51 Atenolol 12.5 Mg Tab PO 12.5 mg BID LEANDRO Administration Carbidopa/Levodopa 1 each 08/04/21 23:15 08/04/21 23:51 Carbidopa-Levodopa 25-100 Mg 1 Each Tab PO 1 each QID LEANDRO Administration Cholecalciferol 125 mcg 08/05/21 09:15 Cholecalciferol 25 Mcg (1000 Iu) Tablet PO DAILY [facility] Clopidogrel Bisulfate 75 mg 08/05/21 09:00 Clopidogrel 75 Mg Tab PO DAILY [facility] Hydrochlorothiazide 25 mg 08/05/21 09:00 Hydrochlorothiazide 25 Mg Tab PO DAILY [facility] Lacosamide 50 mg 08/04/21 23:15 08/04/21 23:51 Lacosamide 50 Mg Tablet PO 50 mg BID LEANDRO Administration Losartan Potassium 100 mg 08/05/21 09:00 Losartan 50 Mg Tab PO DAILY [facility] Multivitamins 1 each 08/05/21 09:00 Multivitamins, Thera 1 Each Tab PO DAILY [facility] Naloxone HCl 0.2 mg 08/04/21 18:46 Naloxone 0.4 Mg/Ml 1 Ml Vial IV Q2M PRN Opioid Reversal Intake and Output 08/04/21 08/05/21 08/05/21 22:59 06:59 14:59 Output Total 200 Balance -200 Output: Urine 200 Other: Voiding Method Bedside Commode # Voids 1 1 Weight 63.049 kg 08/05/21 06:27 08/04/21 16:54 EKG Interpretations (text) Sinus rhythm Assessment and Plan (1) Essential hypertension Current Visit: Yes Status: Acute Code(s): I10 - ESSENTIAL (PRIMARY) HYPERTENSION SNOMED Code(s): 67740512 (2) Syncope Current Visit: Yes Status: Acute Code(s): R55 - SYNCOPE AND COLLAPSE SNOMED Code(s): 705814909 (3) Paroxysmal atrial fibrillation Current Visit: Yes Status: Acute Code(s): I48.0 - PAROXYSMAL ATRIAL FIBRILLATION SNOMED Code(s): 016215022 (4) Parkinsons disease Current Visit: Yes Status: Acute Code(s): G20 - PARKINSON'S DISEASE SNOMED Code(s): 66828211 Plan: Monitor her blood pressure for postural changes. Watch for any arrhythmias. Neurology consult may be constricted. If no Sigmund pathologies found, patient could be discharged home with event monitor
[2021-08-05] MEDS: LACOSAMIDE 50 MG TABLET PO SCH ×2 (10:20→20:03)
[2021-08-05] MEDS: CLOPIDOGREL 75 MG TAB PO SCH (10:20)
[2021-08-05] MEDS: LOSARTAN 50 MG TAB PO SCH (10:20)
[2021-08-05] MEDS: MULTIVITAMINS, THERA 1 EACH TAB PO SCH (10:20)
[2021-08-05] MEDS: hydroCHLOROthiazide 25 MG TAB PO SCH (10:21)
[2021-08-05] MEDS: CARBIDOPA-LEVODOPA 25-100 MG 1 EACH TAB PO SCH ×4 (10:21→20:21)
--- NOTE | 2021-08-05 10:59 | US ---
EXAMINATION TYPE: US carotid duplex BILAT DATE OF EXAM: 08/05/2021 COMPARISON: US dated 01/03/2018 CLINICAL HISTORY: syncopal episode. EXAM MEASUREMENTS: RIGHT: Peak Systolic Velocity (PSV) cm/sec ----- Right CCA: 65.6 ----- Right ICA: 105.0 ----- Right ECA: 67.6 ICA/CCA ratio: 1.6 RIGHT: End Diastole cm/sec ----- Right CCA: 13.6 ----- Right ICA: 31.8 ----- Right ECA: 0.0 LEFT: Peak Systolic Velocity (PSV) cm/sec ----- Left CCA: 89.0 ----- Left ICA: 92.9 ----- Left ECA: 64.3 ICA/CCA ratio: 1.0 LEFT: End Diastole cm/sec ----- Left CCA: 14.9 ----- Left ICA: 26.6 ----- Left ECA: 0.0 VERTEBRALS (direction of flow): Right Vertebral: Antegrade Left Vertebral: Antegrade Rhythm: Normal No significant stenosis seen. No elevated velocities. IMPRESSION: No evidence for hemodynamically significant stenosis Criteria for Assigning % of Stenosis / Diameter reduction (Estimation based on the indirect measurements of the internal carotid artery velocities (ICA PSV). 1. Normal (no stenosis)=ICA PSV < 125 cm/s: ratio < 2.0: ICA EDV<40 cm/s. 2. Less than 50% stenosis=ICA PSV < 125 cm/s: ratio < 2.0: ICA EDV<40 cm/s. 3. 50 to 69% stenosis=ICA PSV of 125 to 230 cm/s: ration 2.0 ? 4.0: ICA EDV 40-100 cm/s. 4. Greater than 70% stenosis to near occlusion= ICA PSV > 230 cm/s: ratio > 4.0: ICA EDV > 100 cm/s. 5. Near occlusion= ICA PSV velocities may be low or undetectable: variable ratio and ICA EDV. 6. Total occlusion=unable to detect flow.
--- NOTE | 2021-08-05 11:26 | P.HPIM ---
History of Present Illness H&P Date: 08/05/21 Chief Complaint: Syncopal episodes This is an 81-year-old female patient who presented with a syncopal episode. Patient does not remember the event according to ER report patient's daughter found patient unconscious in the bathroom. Patient did have episode of emesis with syncopal episode. Patient was recently admitted for hallucinations in which she was started on BiPAP. During that stay MRI of the brain performed showing evidence of brain meningioma. Patient was evaluated by neurology services was started on the patent was advised to follow-up with neurosurgeon patient. Additional medical history includes hypertension, Parkinson's disease, CVA, GI bleed and previous episode of atrial fibrillation. Chest x-ray was performed in ER showing left atrial enlargement similar to prior no acute process. At this time cardiology and neurology services will be consulted. Carotid Doppler and 2-D echo ordered. Troponins negative 3. COVID-19 negative. At this time patient is resting comfortably in bed. Patient denies any chest pain or shortness breath. Patient denies nausea vomiting or diarrhea. Patient denies any urinary burning or frequency. Review of Systems Please refer to HPI otherwise unremarkable Past Medical History Past Medical History: Atrial Fibrillation, CVA/TIA, Deep Vein Thrombosis (DVT), GI Bleed, Hypertension, Musculoskeletal Disorder, Neurologic Disorder, Thyroid Disorder Additional Past Medical History / Comment(s): 01/03/18 TIA, headaches, parkinsons, rectal bleed, hemorrhoids, anemia, bronchitis, sinus problems with recent sinus infection tx with antibiotics, low back pain, UTIs, diverticular disease, colon polyps-benign, R arm DVT. Left hip pain worse than right hip chronic. History of Any Multi-Drug Resistant Organisms: None Reported Past Surgical History: Cholecystectomy, Hysterectomy, Tubal Ligation Additional Past Surgical History / Comment(s): cataract surgery bilateral with lens implants, rectocele, cystocele, colonoscopies/benign polypectomies. Past Anesthesia/Blood Transfusion Reactions: No Reported Reaction Past Psychological History: No Psychological Hx Reported Smoking Status: Never smoker Past Alcohol Use History: None Reported Past Drug Use History: None Reported - Past Family History Mother Family Medical History: Cancer Additional Family Medical History / Comment(s): Mother of lung cancer at the age of 83 yrs. Father Additional Family Medical History / Comment(s): arthritis Medications and Allergies Home Medications Medication Instructions Recorded Confirmed Type Carbidopa/Levodopa 1 tab PO QID 10/28/14 08/04/21 History [Carbidopa-Levodopa 25-100 Tab] Losartan Potassium 100 mg PO DAILY 01/03/18 08/04/21 History Clopidogrel [Plavix] 75 mg PO DAILY tab 01/05/18 08/04/21 Rx Cholecalciferol (Vitamin D3) 125 mcg PO DAILY 07/07/21 08/04/21 History [Vitamin D3 (125 MCG = 5,000 IU)] Multivitamins, Thera [Multivitamin 1 tab PO DAILY 07/07/21 08/04/21 History (formulary)] hydroCHLOROthiazide [Hydrodiuril] 25 mg PO DAILY 07/07/21 08/04/21 History Clotrimazole/Betamethasone Dip 1 applic TOPICAL BID 07/22/21 08/04/21 History [Lotrisone Cream] Propylene Glycol/Peg 400/Pf 1 drop BOTH EYES ONCE PRN 07/24/21 08/04/21 History [Systane 0.3-0.4% Eye Drop] Cyanocobalamin (Vitamin B-12) 1,000 mcg PO DAILY 30 Days #30 07/28/21 08/04/21 Rx [Vitamin B-12] tablet Lacosamide [Vimpat] 50 mg PO BID 30 Days #60 tablet 07/28/21 08/04/21 Rx amantadine HCL [Symmetrel] 100 mg PO DAILY 30 Days #30 cap 07/28/21 08/04/21 Rx atenoloL [Tenormin] 12.5 mg PO BID 30 Days #60 dose 07/28/21 08/04/21 Rx Allergies Allergy/AdvReac Type Severity Reaction Status Date / Time No Known Allergies Allergy Verified 08/04/21 17:30 Physical Exam Vitals: Vital Signs Temp Pulse Pulse Resp BP BP Pulse Ox 08/05/21 07:00 98.5 F 60 18 130/63 95 08/05/21 02:23 98.1 F 62 16 117/62 95 08/04/21 21:07 97.9 F 85 16 164/67 98 08/04/21 20:00 67 18 148/70 95 08/04/21 18:41 69 20 143/60 99 08/04/21 16:13 98.1 F 64 20 117/77 98 Intake and Output 08/04/21 08/05/21 08/05/21 22:59 06:59 14:59 Output Total 200 Balance -200 Output: Urine 200 Other: Voiding Method Bedside Commode # Voids 1 1 Weight 63.049 kg Head normocephalic Neck supple Lungs clear to auscultation bilaterally no wheezing or crackles Heart regular rate and rhythm S1-S2, no rub or gallop Abdomen is soft nontender nondistended positive bowel sounds no hepatosplenomegaly Extremities no edema Neuro alert and orientated to 3 Results CBC & Chem 7: 08/05/21 06:27 08/04/21 16:54 Labs: Abnormal Lab Results - Last 24 Hours (Table) 08/04/21 08/04/21 08/04/21 Range/Units 16:54 16:54 16:54 RBC 3.59 L (3.80-5.40) m/uL APTT 19.5 L (22.0-30.0) sec Sodium 136 L (137-145) mmol/L BUN 24 H (7-17) mg/dL Glucose 126 H (74-99) mg/dL Calcium 10.3 H (8.4-10.2) mg/dL Thrombosis Risk Factor Assmnt - Choose All That Apply Any of the Below Risk Factors Present?: No Other Risk Factors: Yes Each Risk Factor Represents 3 Points: Age 75 years or older Other congenital or acquired thrombophilia - If yes, enter type in comment: No Thrombosis Risk Factor Assessment Total Risk Factor Score: 3 Thrombosis Risk Factor Assessment Level: Moderate Risk Assessment and Plan Assessment: 1. Syncopal episode 2. Recent fall with head trauma 3. History of visual hallucinations with evidence of brain meningioma on MRI. Patient was evaluated by neurology services was started on the padded advised follow-up with neurosurgeon outpatient 4. History of essential hypertension 5. History of Parkinson's disease 6. History of CVA 7. History of GI bleed Cardiology and neurology service is consulted 2-D echo and carotid Doppler ordered Repeat labs ordered
[2021-08-05] MEDS: CHOLECALCIFEROL 25 MCG (1000 IU) TABLET PO SCH (12:28)
[2021-08-05 13:18] VITALS: BMI 23.1
[2021-08-05 14:58] LABS: Anion Gap 9.4 mmol/L (4.00-12.00); BUN/Creat Ratio 25.56 Ratio (12.00-20.00); Calcium 9.7 mg/dL (8.7-10.3); Carbon Dioxide 27.6 mmol/L (21.6-31.8); Non-African American GFR(CKD) 60.4 (60.0-200.0); Potassium 3.5 mmol/L (3.5-5.5)
[2021-08-05] MEDS: DOCUSATE 100 MG CAP PO SCH (15:10)
--- NOTE | 2021-08-05 16:59 | P.CNNES ---
History of Present Illness Consult date: 08/05/21 Requesting physician: Jett Gregg Reason for Consult: Syncopal episode History of Present Illness: This is a tele-neurology consultation performed today on 08/05/2021. Patient is a 81-year-old female came to the hospital by ambulance yesterday at 4:06 PM, after she suffered from a syncopal spell. As the EMS flow sheet when they arrived, patient was seated on the floor, alert and oriented to time place and events. No labored breathing. Skin color was normal and warm dry. On fire department arrival, patient returned to her normal baseline. Patient complained of increased weakness and nausea. No other injury. Patient unable to ambulate on her own due to weakness and was placed on stretcher. Patient's vital on scene revealed blood pressure 126/48, pulse 76, respirations 18, saturation 98%. Patient's vital signs on arrival blood pressure 117/77, pulse is 64, temperature 98.1. Patient's blood test shows normal CBC, PT/PTT, sodium 136 potassium 3.6, BUN 24, creatinine 0.97. Calcium 10.3 hepatic panel is normal, troponin negative, campuzano was negative. Patient's chest x-ray showed left atrial enlar gement similar to prior. No acute process. EKG shows normal sinus rhythm. Left ventricular hypertrophy with repolarization abnormality. Patient's daughter was present today. Patient and her daughter were provided the history. Patient has gone to the bathroom, was standing, washing her hands, wanted to sit down, as she felt hot sensation. She sat down in her wheelchair. Patient's daughter came over, she had her arms on her lap, and her head was slumped down. Patient's daughter tried to talk to the patient and her arms dropped to the side. She took her outside bathroom in the hallway, and patient started sliding down. She was not responsive, and there was no seizure-like activity noted. Her mouth was open, her eyes were open and she was not registering. No tongue bite, no loss of control of urine. Patient's daughter called EMS. As the EMS approached the patient, she closed her mouth, and slowly snapped out of it. Then she started feeling nauseous, and vomited 1, mainly consisting of small amount solid fluid. This episode lasted for about 10-15 minutes. Patient had a prior syncopal spell on 07/07/2020 when she was sitting at in her loveseat, got up and passed out, fell and hit her head. She was not out for long period of time. She suffered from slight scalp laceration. She was seen in the ER, underwent computed tomography scan of the head and the cervical spine, her head was sutured and released. Patient was subsequently seen in the ER on 07/22/2021 for visual and auditory hallucinations. She was noted to have slight worsening of her renal functions. No signs of UTI. Patient was recommended to follow up with cad draftsman. She subsequently came back to the ER on 07/25/2021, and was admitted. Patient has been seen by Dr. Gary Kincaid on 07/25/2021 for visual and auditory hallucinations as well as paranoia. Patient has Parkinson's disease hypertension. MRI of the brain was recommended, an in EEG. EEG was normal. MRI of the brain revealed a 1 cm meningioma in the middle cranial fossa on the right medially. Patient was started on Vimpat 50 mg twice a day related to right-sided meningioma over the temporal region. Her hallucinations went away. Patient has been scheduled for 2.5 hour EEG next Saturday on 08/09/2021. Patient subsequently followed up with Dr. Finch. Patient follows up with Dr. Finch for Parkinson's disease which she has since 2011. Review of Systems Patient has Parkinson's disease. Denies any diplopia, nausea vomiting at this time. No problem with bowel or bladder control. No signs of UTI. No abdominal pain. No chest pain, no headache. No numbness tingling focal weakness. Past Medical History Past Medical History: Atrial Fibrillation, CVA/TIA, Deep Vein Thrombosis (DVT), GI Bleed, Hypertension, Musculoskeletal Disorder, Neurologic Disorder, Thyroid Disorder Additional Past Medical History / Comment(s): 01/03/18 TIA, headaches, parkinsons, rectal bleed, hemorrhoids, anemia, bronchitis, sinus problems with recent sinus infection tx with antibiotics, low back pain, UTIs, diverticular disease, colon polyps-benign, R arm DVT. Left hip pain worse than right hip chronic. History of Any Multi-Drug Resistant Organisms: None Reported Past Surgical History: Cholecystectomy, Hysterectomy, Tubal Ligation Additional Past Surgical History / Comment(s): cataract surgery bilateral with lens implants, rectocele, cystocele, colonoscopies/benign polypectomies. Past Anesthesia/Blood Transfusion Reactions: No Reported Reaction Past Psychological History: No Psychological Hx Reported Smoking Status: Never smoker Past Alcohol Use History: None Reported Past Drug Use History: None Reported - Past Family History Mother Family Medical History: Cancer Additional Family Medical History / Comment(s): Mother of lung cancer at the age of 83 yrs. Father Additional Family Medical History / Comment(s): arthritis Medications and Allergies Home Medications Medication Instructions Recorded Confirmed Type Carbidopa/Levodopa 1 tab PO QID 10/28/14 08/04/21 History [Carbidopa-Levodopa 25-100 Tab] Losartan Potassium 100 mg PO DAILY 01/03/18 08/04/21 History Clopidogrel [Plavix] 75 mg PO DAILY tab 01/05/18 08/04/21 Rx Cholecalciferol (Vitamin D3) 125 mcg PO DAILY 07/07/21 08/04/21 History [Vitamin D3 (125 MCG = 5,000 IU)] Multivitamins, Thera [Multivitamin 1 tab PO DAILY 07/07/21 08/04/21 History (formulary)] hydroCHLOROthiazide [Hydrodiuril] 25 mg PO DAILY 07/07/21 08/04/21 History Clotrimazole/Betamethasone Dip 1 applic TOPICAL BID 07/22/21 08/04/21 History [Lotrisone Cream] Propylene Glycol/Peg 400/Pf 1 drop BOTH EYES ONCE PRN 07/24/21 08/04/21 History [Systane 0.3-0.4% Eye Drop] Cyanocobalamin (Vitamin B-12) 1,000 mcg PO DAILY 30 Days #30 07/28/21 08/04/21 Rx [Vitamin B-12] tablet Lacosamide [Vimpat] 50 mg PO BID 30 Days #60 tablet 07/28/21 08/04/21 Rx amantadine HCL [Symmetrel] 100 mg PO DAILY 30 Days #30 cap 07/28/21 08/04/21 Rx atenoloL [Tenormin] 12.5 mg PO BID 30 Days #60 dose 07/28/21 08/04/21 Rx Allergies Allergy/AdvReac Type Severity Reaction Status Date / Time No Known Allergies Allergy Verified 08/04/21 17:30 Physical Examination - Vital Signs Vital Signs: Vital Signs Temp Pulse Pulse Resp BP BP Pulse Ox 08/05/21 07:00 98.5 F 60 18 130/63 95 08/05/21 02:23 98.1 F 62 16 117/62 95 08/04/21 21:07 97.9 F 85 16 164/67 98 08/04/21 20:00 67 18 148/70 95 08/04/21 18:41 69 20 143/60 99 08/04/21 16:13 98.1 F 64 20 117/77 98 Intake and Output 08/04/21 08/05/21 08/05/21 22:59 06:59 14:59 Output Total 200 Balance -200 Output: Urine 200 Other: Voiding Method Bedside Commode # Voids 1 1 Weight 63.049 kg Patient is an elderly female, in no acute distress. Patient is alert, awake oriented to time place and person. Patient knows it is July 2021 and that she is in [facility] in [place]. She knows it is beginning of the fall season and name of the current president. Speech and language functions are normal. No aphasia or dysarthria. She speaks in very low volume. Attention, concentration and fund of knowledge is adequate. On cranial examination, pupils are round and reacting to light, visual martin are full on confrontation, extraocular muscles are intact with no nystagmus. Face is symmetric, tongue protrudes to the midline. Palatal elevation and sensation normal, hearing and shoulder shrug normal, facial sensation normal. Shoulder shrug normal. On muscle strength testing, there is no pronator drift and the strength is normal in arms and legs distally and proximally, except hip flexion which is slightly weak bilaterally. Deep tendon reflexes are 1+ to 2+ and plantars downgoing. Sensory to touch is equal with no neglect. Cerebellar function showed no ataxia for [id number] testing. No dysdiadochokinesia. Tone is mildly increased on the left and bulk of muscles normal. Gait not checked. On general examination, there is no carotid bruit or murmur, S1-S2 audible. Abdomen is soft nontender. Chest is clear. Peripheral pulses are present. No edema. Results - Laboratory Findings CBC and BMP: 08/05/21 06:27 08/05/21 06:27 Abnormal Lab Findings: Abnormal Labs 0908/04/21 08/04/21 16:54 16:54 16:54 RBC 3.59 L Hgb Hct APTT 19.5 L Sodium 136 L BUN 24 H Glucose 126 H Calcium 10.3 H 08/05/21 06:27 RBC 3.33 L Hgb 10.5 L Hct 31.8 L APTT Sodium BUN Glucose Calcium Assessment and Plan Assessment: * Recurrent syncopal spells, unclear etiology. Rule out orthostatic hypotension, arrhythmia versus seizure. * Parkinson's disease since 2011. * Cerebral meningioma, 1 cm in the middle cranial fossa on the right medially. Doubt would be symptomatic. * Recent history of vitamin B12 deficiency. On oral B12 replacement. * History of atrial fibrillation as per electronic records. * Hypertension Plan: * Tilt table test * Agree with cardiology for placement of an event monitor to rule out arrhythmia. * Patient is scheduled for outpatient 2.5 hours EEG on 08/09/2021. * Carotid Doppler revealed no significant stenosis. Antegrade flow in both vertebral arteries. * PT OT evaluate gait. Patient has been using her walker since last admission on 07/07/2021. * Patient's Parkinson's is well controlled. Continue Sinemet 25/100 4 times a day and amantadine 100 mg daily. * Patient also on Vimpat 50 mg twice a day. I will not make changes in her seizure medication, as she is already scheduled for an outpatient prolonged EEG next week. * Patient's electronic records document history of atrial fibrillation, currently in normal sinus rhythm. Patient is currently not on anticoagulation. I would defer to her cardiology and/or IM if anticoagulation is needed. Patient is on Plavix 75 mg daily. * Patient on Lovenox for DVT prophylaxis. * Neurology will follow. Time with Patient: Greater than 30
--- NOTE | 2021-08-05 17:00 | ECHOF ---
Referral Reason:syncope MEASUREMENTS -------- HEIGHT: 165.1 cm WEIGHT: 63.0 kg BP: RVIDd: 2.1 cm (< 3.3) IVSd: 1.5 cm (0.6 - 1.1) LVIDd: 3.5 cm (3.9 - 5.3) LVPWd: 1.0 cm (0.6 - 1.1) IVSs: 1.5 cm LVIDs: 1.8 cm LVPWs: 1.6 cm Ao Diam: 3.1 cm (2.0 - 3.7) AV Cusp: 1.9 cm (1.5 - 2.6) LA Diam: 2.5 cm (2.7 - 3.8) MV EXCURSION: 12.495 mm (> 18.000) MV EF SLOPE: 85 mm/s (70 - 150) EPSS: 0.3 cm MV E Tin: 0.60 m/s MV DecT: 293 ms MV A Tin: 0.80 m/s MV E/A Ratio: 0.76 RAP: 5.00 mmHg RVSP: 15.95 mmHg FINDINGS -------- This was a technically good study. The left ventricular size is normal. There is mild concentric left ventricular hypertrophy. Overa ll left ventricular systolic function is normal with, an EF between 55 - 60 %. The right ventricle is normal in size. The left atrial size is normal. The right atrial size is normal. The aortic valve is trileaflet and appears structurally normal. The mitral valve is normal. There is trace mitral regurgitation. The tricuspid valve appears structurally normal. Trace tricuspid regurgitation present. Right jeanne tricular systolic pressure is normal at < 35 mmHg. There is no pulmonic regurgitation present. The aortic root size is normal. Normal inferior vena cava with normal inspiratory collapse consistent with estimated right atrial pre ssure of 5 mmHg. There is no pericardial effusion. CONCLUSIONS -------- 1. The left ventricular size is normal. 2. There is mild concentric left ventricular hypertrophy. 3. Overall left ventricular systolic function is normal with, an EF between 55 - 60 %. 4. There is trace mitral regurgitation. 5. Trace tricuspid regurgitation present. 6. There is no pericardial effusion. TRAVERTINE INSTALLER: Haven Dumont RDCS
[2021-08-05] MEDS: MELATONIN 5 MG TABLET PO SCH (21:47)
[2021-08-06] MEDS: DOCUSATE 100 MG CAP PO SCH (08:15)
[2021-08-06] MEDS: CARBIDOPA-LEVODOPA 25-100 MG 1 EACH TAB PO SCH ×4 (08:16→21:23)
[2021-08-06] MEDS: CHOLECALCIFEROL 25 MCG (1000 IU) TABLET PO SCH (08:17)
[2021-08-06] MEDS: CLOPIDOGREL 75 MG TAB PO SCH (08:17)
[2021-08-06] MEDS: MULTIVITAMINS, THERA 1 EACH TAB PO SCH (08:18)
[2021-08-06] MEDS: hydroCHLOROthiazide 25 MG TAB PO SCH (08:19)
[2021-08-06] MEDS: HYDROCORTISONE SUPPOSITORY 25 MG SUPP RECTAL SCH (08:19)
[2021-08-06] MEDS: ENOXAPARIN 40 MG/0.4 ML SYRINGE SQ SCH (08:19)
[2021-08-06] MEDS: PANTOPRAZOLE 40 MG TABLET PO SCH (08:19)
[2021-08-06] MEDS: LOSARTAN 50 MG TAB PO SCH (08:19)
[2021-08-06] MEDS: LACOSAMIDE 50 MG TABLET PO SCH ×2 (08:20→21:24)
[2021-08-06 09:00] LABS: Basophils # (A) 0.03 X 10*3/uL (0.00-0.10); Basophils % (A) 0.6 %; Eosinophils # (A) 0.14 X 10*3/uL (0.04-0.35); Eosinophils % (A) 2.7 %; HCT 34.1 % (37.2-46.3); HGB 11.1 g/dL (12.0-15.0); Lymphocytes # (A) 1.37 X 10*3/uL (0.90-5.00); Lymphocytes % (A) 26.9 %; MCH 30.8 pg (27.0-32.0); MCHC 32.6 g/dL (32.0-37.0); MCV 94.7 fL (80.0-97.0); Mean Platelet Volume 11.8 fL (9.5-12.2); Monocytes # (A) 0.59 X 10*3/uL (0.20-1.00); Monocytes % (A) 11.6 %; Neutrophils # (A) 2.94 X 10*3/uL (1.80-7.70); Neutrophils % (A) 57.6 %; Platelet Count 185 X 10*3/uL (140-440); RDW 12.4 % (11.5-14.5)
[2021-08-06 10:29] LABS: ALT <8 U/L (8-44); AST 13 U/L (13-35); African American GFR (CKD) 54.9 (60.0-200.0); Alkaline Phosphatase 57 U/L (41-126); BUN/Creat Ratio 17.27 Ratio (12.00-20.00); Calcium 10.1 mg/dL (8.7-10.3); Carbon Dioxide 32.7 mmol/L (21.6-31.8); Chloride 103 mmol/L (96-109); Globulin 2.3 g/dL (1.6-3.3); Glucose 101 mg/dL (70-110); Non-African American GFR(CKD) 47.4 (60.0-200.0); Potassium 3.6 mmol/L (3.5-5.5); Sodium 141 mmol/L (135-145); Total Bilirubin 0.3 mg/dL (0.3-1.2); Total Protein 6.2 g/dL (6.2-8.2)
--- NOTE | 2021-08-06 12:59 | P.PN ---
Subjective Progress Note Date: 08/06/21 This is an 81-year-old female patient who presented with a syncopal episode. Patient does not remember the event according to ER report patient's daughter found patient unconscious in the bathroom. Patient did have episode of emesis with syncopal episode. Patient was recently admitted for hallucinations in which she was started on BiPAP. During that stay MRI of the brain performed showing evidence of brain meningioma. Patient was evaluated by neurology services was started on the patent was advised to follow-up with neurosurgeon patient. Additional medical history includes hypertension, Parkinson's disease, CVA, GI bleed and previous episode of atrial fibrillation. Chest x-ray was performed in ER showing left atrial enlargement similar to prior no acute process. At this time cardiology and neurology services will be consulted. Carotid Doppler and 2-D echo ordered. Troponins negative 3. COVID-19 negative. At this time patient is resting comfortably in bed. Patient denies any chest pain or shortness breath. Patient denies nausea vomiting or diarrhea. Patient denies any urinary burning or frequency. On 08/06/2021 Patient was seen and examined on the medical floor, he is alert and oriented x 3 in no distress, he denies any complaints there is no fever or chills no headache or dizziness no chest pain no shortness of breath no palpitation no cough no nausea or vomiting no abdominal pain no diarrhea no blood in the stools no burning with urination no frequency or urgency and no hematuria, there is no weakness or numbness in any of the extremities no change in vision speech, gait was not tested at this time, patient was evaluated by neurology and is scheduled for a tilt table test tomorrow, cardiology are also following echocardiogram and carotid Doppler were done, awaiting further recommendation from cardiology. Objective - Vital Signs Vital signs: Vital Signs Temp 97.7 F 08/06/21 07:00 Pulse 54 L 08/06/21 08:00 Resp 18 08/06/21 08:00 BP 133/71 08/06/21 07:00 Pulse Ox 95 08/06/21 07:00 Intake & Output 08/05/21 08/06/21 08/06/21 18:59 06:59 18:59 Intake Total 360 210 Output Total 300 300 Balance 60 -300 210 Weight 63.049 kg Intake: Oral 360 210 Output: Urine 300 300 Other: Voiding Method Bedside Commode Bedside Commode # Voids 1 1 0 # Bowel Movements 0 0 0 - Exam In general patient is alert and oriented x 3 in no distress HEENT head normocephalic and atraumatic Neck is supple no JVD no goiter no lymphadenopathy no carotid bruit Chest examination is clear to auscultation no crackles no wheezing Cardiac exam reveals regular heart sounds S1 and S2 no gallops no murmurs Abdomen is soft nontender no organomegaly with normal bowel sounds Extremity exam reveals no edema no cyanosis or clubbing Neurological examination reveals no gross focal deficits - Labs CBC & Chem 7: 08/06/21 05:54 08/06/21 05:54 Labs: Abnormal Lab Results - Last 24 Hours (Table) 08/05/21 08/06/21 08/06/21 Range/Units 06:27 05:54 05:54 RBC 3.60 L (4.10-5.20) X 10*6/uL Hgb 11.1 L (12.0-15.0) g/dL Hct 34.1 L (37.2-46.3) % Carbon Dioxide 32.7 H (21.6-31.8) mmol/L Est GFR (CKD-EPI)AfAm 54.9 L (60.0-200.0) Est GFR (CKD-EPI)NonAf 47.4 L (60.0-200.0) BUN/Creatinine Ratio 25.56 H (12.00-20.00) Ratio ALT <8 L (8-44) U/L Assessment and Plan Assessment: 1. Syncopal episode 2. Recent fall with head trauma 3. History of visual hallucinations with evidence of brain meningioma on MRI. Patient was evaluated by neurology services was started on the padded advised follow-up with neurosurgeon outpatient 4. History of essential hypertension 5. History of Parkinson's disease 6. History of CVA 7. History of GI bleed Cardiology and neurology service is consulted 2-D echo and carotid Doppler ordered Repeat labs ordered
--- NOTE | 2021-08-06 13:14 | P.PN ---
Subjective Progress Note Date: 08/06/21 This is a 81-year-old female was admitted to the hospital with an episode of loss of consciousness while she was in the bathroom. This is preceded by a sensation of heart feeling all over the body. So far no arrhythmias are noted. No Sigmund postural hypotension documented. Seen by neurology and recommended tilt test. Patient is going to have a tilt test tomorrow. If that is negative, will consider putting event monitor. She denies any chest pain or shortness of breath. Further recommendations depend upon the clinical course and input from neurology Objective - Vital Signs Vital signs: Vital Signs Temp 97.7 F 08/06/21 07:00 Pulse 54 L 08/06/21 08:00 Resp 18 08/06/21 08:00 BP 133/71 08/06/21 07:00 Pulse Ox 95 08/06/21 07:00 Intake & Output 08/05/21 08/06/21 08/06/21 18:59 06:59 18:59 Intake Total 360 210 Output Total 300 300 Balance 60 -300 210 Weight 63.049 kg Intake: Oral 360 210 Output: Urine 300 300 Other: Voiding Method Bedside Commode Bedside Commode # Voids 1 1 0 # Bowel Movements 0 0 0 - Exam GENERAL EXAM: Patient is alert and oriented and doesn't appear to be in any acute distress HEENT: Normocephalic. Normal reaction of pupils, equal size, normal range of extraocular motion. No erythema or exudates in the throat. NECK: No masses, no nuchal rigidity. CHEST: No chest wall deformity. LUNGS: Equal air entry with no crackles or wheeze. HEART: S1 and S2 normal with no audible mumurs or gallops. Regular rhythm, femorals equal on both sides.. ABDOMEN: No hepatosplenomegaly, normal bowel sounds, no guarding or rigidity. SKIN: No rashes CENTRAL NERVOUS SYSTEM: No focal deficits. EXTREMITIES: No cyanosis, clubbing or edema. - Labs CBC & Chem 7: 08/06/21 05:54 08/06/21 05:54 Labs: Abnormal Lab Results - Last 24 Hours (Table) 08/05/21 08/06/21 08/06/21 Range/Units 06:27 05:54 05:54 RBC 3.60 L (4.10-5.20) X 10*6/uL Hgb 11.1 L (12.0-15.0) g/dL Hct 34.1 L (37.2-46.3) % Carbon Dioxide 32.7 H (21.6-31.8) mmol/L Est GFR (CKD-EPI)AfAm 54.9 L (60.0-200.0) Est GFR (CKD-EPI)NonAf 47.4 L (60.0-200.0) BUN/Creatinine Ratio 25.56 H (12.00-20.00) Ratio ALT <8 L (8-44) U/L Assessment and Plan (1) Essential hypertension Current Visit: Yes Status: Acute Code(s): I10 - ESSENTIAL (PRIMARY) HYPERTENSION SNOMED Code(s): 53478921 (2) Syncope Current Visit: Yes Status: Acute Code(s): R55 - SYNCOPE AND COLLAPSE SNOM ED Code(s): 234611303 (3) Paroxysmal atrial fibrillation Current Visit: Yes Status: Acute Code(s): I48.0 - PAROXYSMAL ATRIAL FIBRILLATION SNOMED Code(s): 404194989 (4) Parkinsons disease Current Visit: Yes Status: Acute Code(s): G20 - PARKINSON'S DISEASE SNOMED Code(s): 46175985 Plan: Remained stable. No recurrence of symptoms. Going to have tilted table test tomorrow. If that is negative, we'll send her home with event monitor
--- NOTE | 2021-08-06 20:19 | P.PN ---
Subjective Progress Note Date: 08/06/21 This is a tele-neurology follow-up performed today on 08/06/2021. Patient is laying comfortably in the bed. Offers no new complaints. No further syncopal spells. No new focal symptoms. Objective - Vital Signs Vital signs: Vital Signs Temp 97.9 F 08/06/21 15:00 Pulse 58 L 08/06/21 15:00 Resp 18 08/06/21 15:00 BP 107/64 08/06/21 15:00 Pulse Ox 96 08/06/21 15:00 Intake & Output 08/06/21 08/06/21 08/07/21 06:59 18:59 06:59 Intake Total 760 Output Total 300 Balance -300 760 Intake: Oral 760 Output: Urine 300 Other: Voiding Method Bedside Commode Bedside Commode Diaper # Voids 1 1 # Bowel Movements 0 0 - Exam Patient's mental status, speech and language functions are normal. Detailed testing deferred. - Labs CBC & Chem 7: 08/06/21 05:54 08/06/21 05:54 Labs: Abnormal Lab Results - Last 24 Hours (Table) 08/06/21 08/06/21 Range/Units 05:54 05:54 RBC 3.60 L (4.10-5.20) X 10*6/uL Hgb 11.1 L (12.0-15.0) g/dL Hct 34.1 L (37.2-46.3) % Carbon Dioxide 32.7 H (21.6-31.8) mmol/L Est GFR (CKD-EPI)AfAm 54.9 L (60.0-200.0) Est GFR (CKD-EPI)NonAf 47.4 L (60.0-200.0) ALT <8 L (8-44) U/L Assessment and Plan Assessment: * Recurrent syncopal spells, unclear etiology. Rule out orthostatic hypotension, arrhythmia versus seizure. * Parkinson's disease since 2011. * Cerebral meningioma, 1 cm in the middle cranial fossa on the right medially. Doubt would be symptomatic. * Recent history of vitamin B12 deficiency. On oral B12 replacement. * History of atrial fibrillation as per electronic records. * Hypertension Plan: * Patient to undergo Tilt table test in the morning. * Agree with cardiology for placement of an event monitor to rule out arrhythmia. * Patient is scheduled for outpatient 2.5 hours EEG on 08/09/2021. * Carotid Doppler revealed no significant stenosis. Antegrade flow in both vertebral arteries. * PT OT evaluate gait. Patient has been using her walker since last admission on 07/07/2021. * Patient's Parkinson's is well controlled. Continue Sinemet 25/100 4 times a d ay and amantadine 100 mg daily. * Patient also on Vimpat 50 mg twice a day. I will not make changes in her seizure medication, as she is already scheduled for an outpatient prolonged EEG next week. * Patient's electronic records document history of atrial fibrillation, currently in normal sinus rhythm. Patient is currently not on anticoagulation. I would defer to her cardiology and/or IM if anticoagulation is needed. Patient is on Plavix 75 mg daily. * Patient on Lovenox for DVT prophylaxis. * Dr. Gary Kincaid to resume neurology service in the morning. Tilt table test results can be followed up by the cost control analyst. Patient's 2.5 hours EEG is already scheduled as outpatient and will be followed up with her neurologist as outpatient. Please reconsult neurology, if any concerns.
[2021-08-06] MEDS: MELATONIN 5 MG TABLET PO SCH (21:24)
[2021-08-07] MEDS: DOCUSATE 100 MG CAP PO SCH (08:08)
[2021-08-07] MEDS: CLOPIDOGREL 75 MG TAB PO SCH (08:08)
[2021-08-07] MEDS: LOSARTAN 50 MG TAB PO SCH (08:09)
[2021-08-07] MEDS: CHOLECALCIFEROL 25 MCG (1000 IU) TABLET PO SCH (08:09)
[2021-08-07] MEDS: LACOSAMIDE 50 MG TABLET PO SCH ×2 (08:09→21:10)
[2021-08-07] MEDS: PANTOPRAZOLE 40 MG TABLET PO SCH (08:10)
[2021-08-07] MEDS: hydroCHLOROthiazide 25 MG TAB PO SCH (08:10)
[2021-08-07] MEDS: CARBIDOPA-LEVODOPA 25-100 MG 1 EACH TAB PO SCH ×4 (08:10→21:10)
[2021-08-07] MEDS: ENOXAPARIN 40 MG/0.4 ML SYRINGE SQ SCH (08:11)
[2021-08-07] MEDS: MULTIVITAMINS, THERA 1 EACH TAB PO SCH (08:11)
[2021-08-07] MEDS: HYDROCORTISONE SUPPOSITORY 25 MG SUPP RECTAL SCH (08:11)
--- NOTE | 2021-08-07 10:14 | P.PN ---
Subjective This is a 81-year-old female past medical history of Parkinson, TIA, paroxysmal atrial fibrillation, hypertension. She follows with Dr. Hanley. Patient presented to the hospital on 08/05/20 with syncopal episode. Patient seen and examined at bedside, no acute distress. She denies any chest pain, shortness of breath, lightheadedness, dizziness. She states she hasn't been walking in the halls, but no further episodes of pre-syncope/syncope. Blood pressure 110/58, 54, afebrile, maintaining oxygen saturations on room air. Telemetry reviewed patient in sinus mechanism, no evidence of arrhythmia. Echocardiogram was performed which showed an EF of 5560 percent, trace mitral regurgitation, trace tricuspid regurgitation. Of noted, patient recently saw Dr. Hanley in the office in June 2021. Norvasc was discontinued bilateral lower extremity edema which started hydrochlorothiazide 25 mg daily. GENERAL: Well-appearing, well-nourished and in no acute distress. NECK: Supple without JVD or thyromegaly. LUNGS: Breath sounds clear to auscultation bilaterally. Respiration equal and unlabored. No wheezes, rales or rhonchi. HEART: Regular rate and rhythm without murmurs, rubs or gallops. S1 and S2 heard. EXTREMITIES: Normal range of motion, no edema. No clubbing or cyanosis. Peripheral pulses intact. ASSESSMENT Syncope History of Parkinson's History of TIA History of paroxysmal atrial fibrillation History of hypertension PLAN Plan for Tilt table test today, if negative, ok to discharge from cardiology perspective and follow up in the office for further management and possible event monitor placement Recommend discontinuing hydrochlorothiazide Neuro following plan for EEG outpatient History of paroxysmal atrial fibrillation, currently maintaining sinus mechanism, Patient is currently not on anticoagulation, will review office records regarding anticoagulation and discuss with Dr. Hanley patient's primary hris developer on anticoagulation recommendation. Nurse Practitioner note has been reviewed, I agree with a documented findings and plan of care. Patient was seen and examined. Objective - Vital Signs Vital signs: Vital Signs Temp 97.8 F 08/07/21 07:00 Pulse 54 L 08/07/21 07:00 Resp 16 08/07/21 07:00 BP 110/58 08/07/21 07:00 Pulse Ox 94 L 08/07/21 07:00 Intake & Output 08/06/21 08/07/21 08/07/21 18:59 06:59 18:59 Intake Total 760 Balance 760 Intake: Oral 760 Other: Voiding Method Bedside Commode Bedside Commode Diaper Diaper # Voids 1 1 # Bowel Movements 0 - Labs CBC & Chem 7: 08/06/21 05:54 08/06/21 05:54 Labs: Abnormal Lab Results - Last 24 Hours (Table) 08/06/21 Range/Units 05:54 Carbon Dioxide 32.7 H (21.6-31.8) mmol/L Est GFR (CKD-EPI)AfAm 54.9 L (60.0-200.0) Est GFR (CKD-EPI)NonAf 47.4 L (60.0-200.0) ALT <8 L (8-44) U/L
[2021-08-07] MEDS: SODIUM CHLORIDE 0.9% 1,000 ML IV SCH (10:47)
--- NOTE | 2021-08-07 17:15 | P.EPPROC ---
- EP Procedure Note Electrophysiology Procedure Note: Patient presented with a syncopal spell. She was referred for tilt table test Twelve-lead EKG shows supraventricular rhythm, regular Baseline artifact Tilt table test per protocol Baseline blood pressure 131/60 mmHg, Baseline heart rate 69 beats a minute Patient was tilted upright at an angle of 70 per protocol There was an immediate drop in blood pressure 204/59 mmHg with a minimal increase in heart rate into the 70s Blood pressure remained low between 9200 mmHg There was a gradual drop in her blood pressure and the lowest blood pressure recorded was 69/44 mmHg with a heart rate of 81 beats a minute She felt warm and sweaty and was yawning Add a blood pressure 47 mmHg she passed out When she was laid supine her blood pressure improved to 105/55 mmHg heart rate in the 60s Impression Normal twelve-lead EKG Orthostatic hypotension syndrome
--- NOTE | 2021-08-07 19:20 | P.PN ---
Subjective Progress Note Date: 08/07/21 This is an 81-year-old female patient who presented with a syncopal episode. Patient does not remember the event according to ER report patient's daughter found patient unconscious in the bathroom. Patient did have episode of emesis with syncopal episode. Patient was recently admitted for hallucinations in which she was started on BiPAP. During that stay MRI of the brain performed showing evidence of brain meningioma. Patient was evaluated by neurology services was started on the patent was advised to follow-up with neurosurgeon patient. Additional medical history includes hypertension, Parkinson's disease, CVA, GI bleed and previous episode of atrial fibrillation. Chest x-ray was performed in ER showing left atrial enlargement similar to prior no acute process. At this time cardiology and neurology services will be consulted. Carotid Doppler and 2-D echo ordered. Troponins negative 3. COVID-19 negative. At this time patient is resting comfortably in bed. Patient denies any chest pain or shortness breath. Patient denies nausea vomiting or diarrhea. Patient denies any urinary burning or frequency. On 08/06/2021 Patient was seen and examined on the medical floor, he is alert and oriented x 3 in no distress, he denies any complaints there is no fever or chills no headache or dizziness no chest pain no shortness of breath no palpitation no cough no nausea or vomiting no abdominal pain no diarrhea no blood in the stools no burning with urination no frequency or urgency and no hematuria, there is no weakness or numbness in any of the extremities no change in vision speech, gait was not tested at this time, patient was evaluated by neurology and is scheduled for a tilt table test tomorrow, cardiology are also following echocardiogram and carotid Doppler were done, awaiting further recommendation from cardiology. On 08/07/2021 Patient was seen and examined on the medical floor, he is alert and oriented x 3 in no distress, he denies any complaints there is no fever or chills no headache or dizziness no chest pain no shortness of breath no palpitation no cough no nausea or vomiting no abdominal pain no diarrhea no blood in the stools no burning with urination no frequency or urgency and no hematuria, there is no weakness or numbness in any of the extremities no change in vision speech or gait. Patient underwent a tilt table test today which was significantly positive, with significant drop in her blood pressure in the upright position, at this time hydrochlorothiazide was discontinued, awaiting further recommendation from cardiology possible discharge to home in the next 1- 2 days Objective - Vital Signs Vital signs: Vital Signs Temp 97.8 F 08/07/21 16:18 Pulse 57 L 08/07/21 16:18 Resp 18 08/07/21 16:18 BP 113/68 08/07/21 16:18 Pulse Ox 99 08/07/21 16:18 Intake & Output 08/07/21 08/07/21 08/08/21 06:59 18:59 06:59 Intake Total 240 Balance 240 Intake: Oral 240 Other: Voiding Method Bedside Commode Bedside Commode Diaper Diaper # Voids 1 2 - Exam In general patient is alert and oriented x 3 in no distress HEENT head normocephalic and atraumatic Neck is supple no JVD no goiter no lymphadenopathy no carotid bruit Chest examination is clear to auscultation no crackles no wheezing Cardiac exam reveals regular heart sounds S1 and S2 no gallops no murmurs Abdomen is soft nontender no organomegaly with normal bowel sounds Extremity exam reveals no edema no cyanosis or clubbing Neurological examination reveals no gross focal deficits - Labs CBC & Chem 7: 08/06/21 05:54 08/06/21 05:54 Assessment and Plan Assessment: 1. Syncopal episode 2. Recent fall with head trauma 3. History of visual hallucinations with evidence of brain meningioma on MRI. Patient was evaluated by neurology services was started on the padded advised follow-up with neurosurgeon outpatient 4. History of essential hypertension 5. History of Parkinson's disease 6. History of CVA 7. History of GI bleed Cardiology and neurology service is consulted 2-D echo and carotid Doppler ordered Repeat labs ordered
[2021-08-07] MEDS: MELATONIN 5 MG TABLET PO SCH (21:10)
[2021-08-08 07:34] VITALS: RESP 18
[2021-08-08] MEDS: ENOXAPARIN 40 MG/0.4 ML SYRINGE SQ SCH (08:58)
[2021-08-08] MEDS: CARBIDOPA-LEVODOPA 25-100 MG 1 EACH TAB PO SCH (08:58)
[2021-08-08] MEDS: CHOLECALCIFEROL 25 MCG (1000 IU) TABLET PO SCH (08:58)
[2021-08-08] MEDS: PANTOPRAZOLE 40 MG TABLET PO SCH (08:59)
[2021-08-08] MEDS: DOCUSATE 100 MG CAP PO SCH (08:59)
[2021-08-08] MEDS: LOSARTAN 50 MG TAB PO SCH ×2 (08:59→09:04)
[2021-08-08] MEDS: MULTIVITAMINS, THERA 1 EACH TAB PO SCH (08:59)
[2021-08-08] MEDS: LACOSAMIDE 50 MG TABLET PO SCH (08:59)
[2021-08-08] MEDS: HYDROCORTISONE SUPPOSITORY 25 MG SUPP RECTAL SCH (09:00)
[2021-08-08] MEDS: CLOPIDOGREL 75 MG TAB PO SCH (09:00)
[2021-08-08] MEDS: SODIUM CHLORIDE 0.9% 1,000 ML IV SCH (09:02)
[2021-08-08] MEDS ORDERED: LOSARTAN 50 MG TAB PO SCH (09:15)
--- NOTE | 2021-08-08 10:36 | P.PN ---
Subjective This is a 81-year-old female past medical history of Parkinson, TIA, paroxysmal atrial fibrillation, hypertension. She follows with Dr. Hanlye. Patient presented to the hospital on 08/05/20 with syncopal episode. Patient seen and examined at bedside, no acute distress. She denies any chest pain, shortness of breath, lightheadedness, dizziness. She states she hasn't been walking in the halls, but no further episodes of pre-syncope/syncope. She underwent a tilt table yesterday which was positive for orthostatic hypotension. Blood pressure 115/61, heart 52, afebrile, maintaining oxygen saturations on room air Telemetry reviewed patient in sinus mechanism, no evidence of arrhythmia. Echocardiogram was performed which showed an EF of 5560 percent, trace mitral regurgitation, trace tricuspid regurgitation. GENERAL: Well-appearing, well-nourished and in no acute distress. NECK: Supple without JVD or thyromegaly. LUNGS: Breath sounds clear to auscultation bilaterally. Respiration equal and unlabored. No wheezes, rales or rhonchi. HEART: Regular rate and rhythm without murmurs, rubs or gallops. S1 and S2 heard. EXTREMITIES: Normal range of motion, no edema. No clubbing or cyanosis. Peripheral pulses intact. ASSESSMENT Syncope History of Parkinson's History of TIA History of paroxysmal atrial fibrillation History of hypertension- hypotensive while inpatient Orthostatic hypotension PLAN -Recommend decreasing patient's antihypertensive medications that can contribute to her symptoms. Decrease losartan to 50mg daily and continue to hold hydrochlorothiazide -Increase activity as tolerated -From a cardiology perspective, ok to discharge with close follow up with Dr. Hanley in the office. Nurse Practitioner note has been reviewed, I agree with a documented findings and plan of care. Patient was seen and examined. Objective - Vital Signs Vital signs: Vital Signs Temp 97.9 F 08/08/21 07:33 Pulse 52 L 08/08/21 07:33 Resp 18 08/08/21 07:33 BP 115/61 08/08/21 07:33 Pulse Ox 96 08/08/21 07:33 Intake & Output 08/07/21 08/08/21 08/08/21 18:59 06:59 18:59 Intake Total 240 500 180 Balance 240 500 180 Intake: Oral 240 500 180 Other: Voiding Method Bedside Commode Bedside Commode Diaper Diaper # Voids 2 3 1 # Bowel Movements 0 - Labs CBC & Chem 7: 08/06/21 05:54 08/06/21 05:54
[2021-08-08 15:12] VITALS: BP 119/51; PULSE 55; TEMP 98.1
== END 2021-08-08 14:53 | disposition home or self-care (01) | DRG 312 ==
LOC: EC 16:06 → 6NMEDSUR 18:46 → OBSVTOIN 08-07 08:19
PROVIDERS: ADMIT Internal Medicine; ATTEND Internal Medicine
PROC: 4A02XFZ Measurement of Cardiac Rhythm, External Approach (ICD-10-PCS; 2021-08-07)
PROC: 4A03XB1 Measurement of Arterial Pressure, Peripheral, External Approach (ICD-10-PCS; 2021-08-07)
PROC: 5A09457 Assistance with Respiratory Ventilation, 24-96 Consecutive Hours, Continuous Positive Airway Pressure (ICD-10-PCS; principal; 2021-08-07 11:20)
DX: I95.1 Orthostatic hypotension (principal); I08.1 Rheumatic disorders of both mitral and tricuspid valves; G20 Parkinson's disease; I11.9 Hypertensive heart disease without heart failure; I48.0 Paroxysmal atrial fibrillation; Z20.822 Contact with and (suspected) exposure to COVID-19; D32.0 Benign neoplasm of cerebral meninges; R11.2 Nausea with vomiting, unspecified; D64.9 Anemia, unspecified; F22 Delusional disorders; M25.552 Pain in left hip; E53.8 Deficiency of other specified B group vitamins; R51.9 Headache, unspecified; M54.9 Dorsalgia, unspecified; K57.90 Diverticulosis of intestine, part unspecified, without perforation or abscess without bleeding; S09.90XA Unspecified injury of head, initial encounter; X58.XXXA Exposure to other specified factors, initial encounter; Z79.02 Long term (current) use of antithrombotics/antiplatelets; Z79.899 Other long term (current) drug therapy; Z86.718 Personal history of other venous thrombosis and embolism; Z86.73 Personal history of transient ischemic attack (TIA), and cerebral infarction without residual deficits; Z87.19 Personal history of other diseases of the digestive system; Z90.710 Acquired absence of both cervix and uterus; Z98.42 Cataract extraction status, left eye; Z98.41 Cataract extraction status, right eye; Z98.51 Tubal ligation status; Z96.1 Presence of intraocular lens
CPT/HCPCS: 36415; 71046; 80048; 80053; 84484; 85025; 85610; 85730; 87635; 93005; 93306; 93660; 93880; 99285

== ENCOUNTER → 2021-08-09 | Outpatient (CLI) | payer MEDICARE, BC | END | disposition home or self-care (01) | LOC: NEUROMAIN 07:48 | PROVIDERS: ATTEND Student in an Organized Health Care Education/Training Program | DX: R44.1 Visual hallucinations (principal) | CPT/HCPCS: 95713 ==

== ENCOUNTER → 2023-08-14 | Outpatient (CLI) | payer MEDICARE, BC ==
--- NOTE | 2023-08-14 14:15 | US ---
EXAMINATION TYPE: US thyroid st tissue head/neck DATE OF EXAM: 08/14/2023 COMPARISON: NONE CLINICAL INDICATION: Female, 83 years old with history of R22.1 LOCALIZED SWELLING, MASS AND LUMP, NE CK; Patient feels intermittent lump at sternal end of clavicle x a few months FINDINGS/IMPRESSION: Area of concern scanned, bone surface at right sternal end of the clavicle appears irregular with hyp oechoic complex areas in surrounding joint space. Area is hypervascular. Left clavicle images form co mparison. Etiologies include acute inflammatory versus infectious process. Consider further evaluatio n with CT neck with IV contrast.
== END | disposition home or self-care (01) ==
LOC: RADUSWWP 13:12
PROVIDERS: ATTEND Internal Medicine
DX: R22.1 Localized swelling, mass and lump, neck (principal)
CPT/HCPCS: 76536